=== PATIENT | female | born 1930 | race Caucasian/White ===

== ENCOUNTER 2017-08-26 20:13 | Observation (INO) | payer MEDICARE ==
[2017-08-26 20:47] LABS: #Lymphocytes 0.7 thou/uL (1.20-3.40); #Monocytes 0.7 thou/uL (0.11-0.59); #Neutrophils 6.6 thou/uL (1.40-6.50); %Basophils 0.1 % (0.0-1.0); %Eosinophils 0.3 % (0.0-10.0); %Lymphocytes 8.2 % (21.0-51.0); %Monocytes 8.2 % (0.0-10.0); Hematocrit 30.5 % (36.0-47.0); Mean Platelet Volume 6.7 fL (7.4-10.4); Red Blood Cell (RBC) Count 3.31 mill/uL (4.20-5.40)
[2017-08-26 21:04] LABS: ALT (SGPT) 25 U/L (8-55); AST (SGOT) 22 U/L (5-34); Alkaline Phosphatase 86 U/L (40-150); Anion Gap 14 mmol/L (10-20); BUN (Urea Nitrogen) 21 mg/dL (9.8-20.1); Bilirubin, Total 0.6 mg/dL (0.2-1.2); Calc. Creatinine Clearance 0 mL/min (70-130); Calcium 9.1 mg/dL (7.8-10.44); Carbon Dioxide 27 mmol/L (23-31); Chloride 103 mmol/L (98-107); Estimated GFR-MDRD 52; Globulin 3.6 g/dL (2.4-3.5); Protein, Total 7.1 g/dL (6.0-8.3)
[2017-08-26 21:08] LABS: Troponin I Less than 0.010 ng/mL (< 0.028)
[2017-08-26] MEDS ORDERED: Acetaminophen 500 MG TAB ONE (22:48)
--- NOTE | 2017-08-26 23:00 | RAD ---
FOUR VIEWS LEFT KNEE 08/26/17 HISTORY: Fall with left knee pain. AP, lateral and both oblique views left knee is obtained. Surgical hardware with plate and screws present in the proximal left tibia. No evidence of acute frac tures, subluxations, or bony lesions seen. IMPRESSION: No evidence of acute left knee pathology. POS: CASSANDRA
--- NOTE | 2017-08-26 23:24 | RAD ---
AP AND LATERAL VIEWS LEFT TIBIA AND FIBULA 08/26/17 AP and lateral views of the left tibia and fibula demonstrate surgical hardware with plates and screw s in the proximal left tibia which is old and healed. No evidence of acute left tibial or fibular fra cture seen. IMPRESSION: No evidence of acute left tibial or fibular pathology seen. POS: CASSANDRA
[2017-08-27] MEDS ORDERED: Acetaminophen 325 MG TAB PO PRN (01:16)
[2017-08-27] MEDS ORDERED: Ondansetron ODT 4 MG TAB SL PRN (01:16)
[2017-08-27] MEDS ORDERED: Ondansetron HCl/PF 4 MG/2 ML Vial IVP PRN (01:16)
[2017-08-27 02:45] VITALS: BMI 46.9
[2017-08-27] MEDS ORDERED: HYDROcodone/Acetaminophen 10/325 mg Tablet PO PRN (08:45)
[2017-08-27] MEDS ORDERED: Dextrose 50% Abboject 50 ML SYRINGE SLOW IVP PRN (08:45)
[2017-08-27] MEDS ORDERED: HYDROcodone/Acetaminophen 5/325 mg Tablet PO PRN (08:45)
[2017-08-27] MEDS ORDERED: Ondansetron ODT 4 MG TAB PO PRN (08:45)
[2017-08-27] MEDS ORDERED: Dextrose 5% in Water 1,000 ML IV PRN (08:45)
[2017-08-27] MEDS ORDERED: HumaLOG 300 UNITS/3 ML VIAL SC PRN (08:45)
[2017-08-27] MEDS ORDERED: Levothyroxine Sodium 50 MCG TAB PO SCH (09:00)
[2017-08-27 09:17] LABS: #Eosinphils 0.1 thou/uL (0.0-0.7); #Lymphocytes 0.5 thou/uL (1.20-3.40); #Monocytes 0.5 thou/uL (0.11-0.59); #Neutrophils 3.7 thou/uL (1.40-6.50); %Basophils 0.2 % (0.0-1.0); %Eosinophils 1.1 % (0.0-10.0); %Monocytes 11.1 % (0.0-10.0); Hematocrit 28.7 % (36.0-47.0); Mean Platelet Volume 6.7 fL (7.4-10.4); Red Blood Cell (RBC) Count 3.14 mill/uL (4.20-5.40); White Blood Cell (WBC) Count 4.8 thou/uL (4.8-10.8)
[2017-08-27] MEDS: Lisinopril 5 MG TAB PO SCH (09:54)
[2017-08-27] MEDS: Apixaban 5 MG TAB PO SCH ×2 (09:55→21:52)
[2017-08-27] MEDS: Famotidine 20 MG TAB PO SCH ×2 (09:56→21:51)
[2017-08-27] MEDS: Torsemide 20 MG TAB PO SCH (09:57)
--- NOTE | 2017-08-27 16:39 | HP ---
DATE OF ADMISSION: 08/27/2017 TIME OF SERVICE: 0800 hours. PRIMARY CARE PHYSICIAN: Madi James M.D. CHIEF COMPLAINT: Fall. HISTORY OF PRESENT ILLNESS: Ms. Chan is a pleasant 87-year-old [place] female who was getting out of bed yesterday morning and fell. She states that her feet just did not move like she expected them t o. She does have a problem with left leg weakness. After falling, she was unable to get up. Her is chronically was unable to help her. He did call EMS, however, she remained on the floor for about 45 minutes prior to their arrival. EMS evalua bernice her and she initially refused transport to the emergency department. Later that morning, home health care came to evaluate, the patient was unable to get up and walk due to left lower extremity pain. She was subsequently sent to the ER anyways. She has been worked up there with negative x-rays, normal labs, and we were called for admission for placement issues. Initially, did try to get her into [facility] from the ER, but due to her insuran ce carrier, they are unable to get her placed from there. She denies any chest pain or shortness of breath, no nausea or vomiting, no diarrhea or constipation, no fevers or chills. No cough or sputum production. She has no syncope or presyncope, no dizziness. PAST MEDICAL HISTORY: 1. Hyperlipidemia. 2. Diabetes mellitus, type 2, non-insulin dependent. 3. Hypertension. 4. Paroxysmal atrial fibrillation. 5. Hypothyroidism. PAST SURGICAL HISTORY: Include; 1. Hysterectomy 50-60 years ago. They were also removed her ovaries. 2. Right total knee arthroplasty in 10/[address] Arteaga, HOME MEDICATIONS: 1. Carvedilol 6.25 mg p.o. b.i.d. 2. Eliquis 2.5 mg p.o. b.i.d. 3. Levothyroxine 50 mcg daily. 4. Torsemide 20 mg daily. 5. Amiodarone listed 400 mg p.o. b.i.d. 6. Lisinopril 5 mg daily. ALLERGIES: NKDA. FAMILY HISTORY: Negative for clotting or bleeding disorder, no immune dysfunction. SOCIAL HISTORY: Negative for habits x3. She is . Her is chronically ill and unable to help her at home. REVIEW OF SYSTEMS: A 10-point review of systems was performed, negative for all other systems except as stated as per HPI. PHYSICAL EXAMINATION: VITAL SIGNS: Temperature 98.4, pulse 58, blood pressure 158/61, respiratory rate 16, satting 98% on room air. GENERAL: She is awake, alert, and oriented x3. She is an obese, older white female, appears to be i n no distress. HEENT: Normocephalic and atraumatic, pupils are equal and reactive bilaterally, mucous membranes are moist. She has no visible lesions. No thrush. NECK: Supple. There is no lymphadenopathy, JVD or thyromegaly. She has normal carotid upstrokes wi thout bruits. NECK: Has good range of motion. LUNGS: Clear to auscultation bilaterally. She has good air movement. Symmetrical chest excursion. There is no prolonged expiratory phase. There are no wheezes, rales or rhonchi. CARDIOVASCULAR: She has normal S1 and S2. I do not appreciate an S3 or S4. She does have a 2/6 sys tolic ejection murmur, best heard at the right upper sternal border. It does not radiate into the ca rotids or the apex. ABDOMEN: Obese. It is nontender and nondistended. She has normoactive bowel sounds. There is no r ebound, rigidity or guarding. I cannot palpate the liver edge or the spleen. EXTREMITIES: Show no cyanosis, no clubbing with trace pedal edema. SKIN: Warm, moist and well perfused without any other rashes or lesions. She has some skin ecchymos is from a minor skin bumps. Her left knee and left leg are swollen. There is no palpable hematoma o r ecchymosis. NEUROLOGIC: Cranial nerves II-XII are grossly intact. She has no focal neurologic deficits. Streng th is 5/5 globally except for the left leg where it is approximately 4/5. LABORATORY DATA: Basic metabolic profile is normal except for glucose of 206. She has a creatinine of 1.02 and a potassium of 4.2. CK-MB was normal at 1.9 with a troponin I was undetectable. She had a calcium of 9.1. CBC showed a white count of 8000, hemoglobin 10.3, hematocrit of 30.5 and platelet count of 228,000. Chest x-ray showed left tib/fib in the left knee. Plain films were negative for acute osseous abnorm ality. ASSESSMENT: 1. Fall from same level. 2. Minor leg trauma: No evidence of fracture. 3. Hyperlipidemia. 4. Diabetes mellitus, type 2. 5. Hypertension. 6. Paroxysmal atrial fibrillation. 7. Hypothyroidism. 8. Physical weakness. PLAN: 1. The patient will be placed in observation. She does not meet inpatient criteria. We will contin ue on her home medications, we will do q.i.d. a.c. and at bedtime Accu-Cheks with sliding scale insul in. We will watch her blood pressure. I will discuss with case management, and making a referral at this point to rehabilitation. She needs to get stronger before she goes home again. This will be a challenge given that she has [employer] Medicare Replacement, and that without inpatient criteria, she d oes not qualify for [facility]. I spoke with case management directly and they are wor manuelito on this. 2. Hypothyroidism. We will continue levothyroxine. 3. Paroxysmal atrial fibrillation, on amiodarone, which will continue on home dosing. 4. Hypertension on carvedilol, lisinopril, and torsemide. We will continue these. I discussed code status and at present she wants to be FULL CODE. We will discuss with her family an advance directive changes.
[2017-08-27] MEDS: Carvedilol 6.25 MG TAB PO SCH (16:52)
[2017-08-28] MEDS: Levothyroxine Sodium 50 MCG TAB PO SCH (06:51)
[2017-08-28] MEDS: Apixaban 5 MG TAB PO SCH ×2 (08:44→20:49)
[2017-08-28] MEDS: Famotidine 20 MG TAB PO SCH ×2 (08:45→20:50)
[2017-08-28] MEDS: Torsemide 20 MG TAB PO SCH (08:45)
[2017-08-28] MEDS: Carvedilol 6.25 MG TAB PO SCH ×2 (08:46→17:09)
--- NOTE | 2017-08-28 11:04 | PDOC.PN ---
- Subjective Encounter Start Date: 08/28/17 Encounter Start Time: 08:15 Pt stable overnight, not seen yet by PT/OT. awaiting their eval for insurance eval for IPR. Given carrier, doubt IPR will be approved, and when denied will attempt SNF approval. I think we have a more liekly rate of approval for SNF vs IPR. Pt still with pain to LLE and knee, LLE edematous below the knee NO F/C, no N/V/D/C, no CP or SOB, no GI bleeding. 10 point ROS performed and neg for all systems except as per HPI - Objective Resuscitation Status: Resuscitation Status FULL:Full Resuscitation MAR Reviewed: Yes Vital Signs & Weight: Vital Signs (12 hours) Temp Pulse Resp BP BP Pulse Ox 08/28/17 10:30 97.8 F 67 18 08/28/17 08:46 116/69 08/28/17 08:00 97.8 F 67 18 116/69 92 L 08/28/17 04:00 97.9 F 56 L 18 136/64 97 08/28/17 00:00 98.1 F 64 18 123/65 96 Weight Weight 299 lb 13.259 oz Result Diagrams: 08/27/17 09:04 08/26/17 20:37 Additional Labs: Accuchecks 08/28/17 08/27/17 08/27/17 06:23 21:12 16:48 POC Glucose 134 H 246 H 154 H 08/27/17 11:32 POC Glucose 219 H Radiology Reviewed by me: Yes EKG Reviewed by me: Yes Phys Exam - Physical Examination Constitutional: NAD HEENT: PERRLA, moist MMs, sclera anicteric, oral pharynx no lesions Neck: no nodes, no JVD, supple, full ROM Respiratory: no wheezing, no rales, no rhonchi, clear to auscultation bilateral Cardiovascular: RRR, no significant murmur, no rub Gastrointestinal: soft, non-tender, no distention, positive bowel sounds Musculoskeletal: pulses present, edema present effusion to left knee, tender to palpation all over her left knee Neurological: non-focal, normal sensation, moves all 4 limbs Lymphatic: no nodes Psychiatric: normal affect, A&O x 3 Skin: no rash, normal turgor, cap refill <2 seconds Deviation from normal: ecchymosis to lateral LLE Dx/Plan - Plan * .
[2017-08-28] MEDS: Lisinopril 5 MG TAB PO SCH (12:07)
--- NOTE | 2017-08-28 15:59 | PDOC.EVN ---
Event Note - Event Note Event Note: pt remains medically stable for discharge, but pt family unwilling to take home. Adamant about waiting on SNF/LTAC/IPR placement
[2017-08-28] MEDS: Artificial Tears 18 DROP/0.9 ML EA EYE PRN (17:57)
[2017-08-29] MEDS: Levothyroxine Sodium 50 MCG TAB PO SCH (05:54)
[2017-08-29] MEDS: Apixaban 5 MG TAB PO SCH ×2 (08:44→20:41)
[2017-08-29] MEDS: Torsemide 20 MG TAB PO SCH (08:44)
[2017-08-29] MEDS: Famotidine 20 MG TAB PO SCH ×2 (08:44→20:47)
[2017-08-29] MEDS: Artificial Tears 18 DROP/0.9 ML EA EYE PRN (08:50)
--- NOTE | 2017-08-29 11:31 | PDOC.PN ---
- Subjective Encounter Start Date: 08/29/17 Encounter Start Time: 09:25 Pt seen on rounds, no acute events, knee less sore. PT note reviewed, pt not ambulatory at home, just transfers to . required max assist yesterday. Pending insurance decision on IPR, doubt they will approve. CM working on no F/C, no CP or SOB, no N/D/V/c, no Cough or sputum. 10 point ROS performed and neg for all systems except as above - Objective Resuscitation Status: Resuscitation Status FULL:Full Resuscitation MAR Reviewed: Yes Vital Signs & Weight: Vital Signs (12 hours) Temp Pulse Resp BP Pulse Ox 08/29/17 08:45 98.1 F 54 L 18 08/29/17 08:00 98.1 F 54 L 18 107/69 95 Weight Weight 299 lb 13.259 oz I&O: 08/28/17 08/29/17 08/30/17 06:59 06:59 06:59 Intake Total 920 Balance 920 Result Diagrams: 08/27/17 09:04 08/26/17 20:37 Additional Labs: Accuchecks 08/29/17 08/28/17 08/28/17 04:14 22:21 16:24 POC Glucose 151 H 129 H 159 H 08/28/17 11:36 POC Glucose 194 H Radiology Reviewed by me: Yes EKG Reviewed by me: Yes Phys Exam - Physical Examination Constitutional: NAD HEENT: PERRLA, moist MMs, sclera anicteric, oral pharynx no lesions Neck: no nodes, no JVD, supple, full ROM Respiratory: no wheezing, no rales, no rhonchi, clear to auscultation bilateral Cardiovascular: RRR, no significant murmur, no rub Gastrointestinal: soft, non-tender, no distention, positive bowel sounds Musculoskeletal: pulses present, edema present Neurological: non-focal, normal sensation, moves all 4 limbs Lymphatic: no nodes Psychiatric: normal affect, A&O x 3 Skin: no rash, normal turgor, cap refill <2 seconds Dx/Plan (1) Fall on same level Code(s): W18.30XA - FALL ON SAME LEVEL, UNSPECIFIED, INITIAL ENCOUNTER Status : Acute Qualifiers: Encounter type: initial encounter Qualified Code(s): W18.30XA - Fall on same level, unspecified, initial encounter Comment: no significant injury. left knee hurts, but improved today (2) Physical deconditioning Code(s): R53.81 - OTHER MALAISE Status: Acute Comment: follow up PT eval today (3) Acute pain of left knee Code(s): M25.562 - PAIN IN LEFT KNEE Status: Acute (4) HTN (hypertension) Code(s): I10 - ESSENTIAL (PRIMARY) HYPERTENSION Status: Chronic Qualifiers: Hypertension type: essential hypertension Qualified Code(s): I10 - Essential (primary) hypertension (5) Paroxysmal A-fib Code(s): I48.0 - PAROXYSMAL ATRIAL FIBRILLATION Status: Chronic - Plan cont current plan of care, PT/OT, out of bed/ambulate * . home if can transfer to , awaiting decision on IPR. SNF possible. Pt medically stable for discharg,e family not wanting to take her home to wait for approval
[2017-08-29] MEDS: Carvedilol 6.25 MG TAB PO SCH ×2 (12:49→17:58)
[2017-08-29] MEDS: Lisinopril 5 MG TAB PO SCH (12:52)
[2017-08-30 05:29] LABS: Hematocrit 29.7 % (36.0-47.0)
[2017-08-30] MEDS: Levothyroxine Sodium 50 MCG TAB PO SCH (06:03)
[2017-08-30] MEDS: Carvedilol 6.25 MG TAB PO SCH ×2 (08:28→17:06)
[2017-08-30] MEDS: Famotidine 20 MG TAB PO SCH ×2 (08:30→20:33)
[2017-08-30] MEDS: Lisinopril 5 MG TAB PO SCH (08:30)
[2017-08-30] MEDS: Apixaban 5 MG TAB PO SCH ×2 (08:31→20:33)
[2017-08-30] MEDS: Torsemide 20 MG TAB PO SCH (08:33)
[2017-08-30] MEDS: Artificial Tears 18 DROP/0.9 ML EA EYE PRN (08:48)
--- NOTE | 2017-08-30 11:33 | PDOC.PN ---
- Subjective Encounter Start Date: 08/30/17 Encounter Start Time: 10:10 pt states she did well with PT yesterday, able to sit up and do exercises on the side of the bed. did not stand, did not trasnfer. knee feeling better todya No F/C, no N/V/D/C, no CP or SOB, no cough 10 point ROs performed and neg for all systems except as per HPI Still awaiting rehab options. Family to my knowledge still unwilling to take her home though medically ready/stable to - Objective Resuscitation Status: Resuscitation Status FULL:Full Resuscitation MAR Reviewed: Yes Vital Signs & Weight: Vital Signs (12 hours) Temp Pulse Resp BP BP Pulse Ox 08/30/17 08:30 52 L 123/69 08/30/17 08:28 123/69 08/30/17 08:00 97.9 F 52 L 16 97 08/30/17 07:47 97.9 F 52 L 16 123/69 97 Weight Weight 299 lb 13.259 oz I&O: 08/29/17 08/30/17 08/31/17 06:59 06:59 06:59 Intake Total 920 2395 240 Balance 920 2395 240 Result Diagrams: 08/30/17 04:31 08/30/17 04:31 Additional Labs: Accuchecks 08/30/17 08/29/17 08/29/17 04:12 16:26 11:56 POC Glucose 122 H 216 H 178 H Radiology Reviewed by me: No EKG Reviewed by me: No Phys Exam - Physical Examination Constitutional: NAD HEENT: PERRLA, moist MMs, sclera anicteric, oral pharynx no lesions Neck: no nodes, no JVD, supple, full ROM Respiratory: no wheezing, no rales, no rhonchi, clear to auscultation bilateral Cardiovascular: RRR, no significant murmur, no rub Gastrointestinal: soft, non-tender, no distention, positive bowel sounds Musculoskeletal: no edema, pulses present Neurological: non-focal, normal sensation, moves all 4 limbs Lymphatic: no nodes Psychiatric: normal affect, A&O x 3 Skin: no rash, normal turgor, cap refill <2 seconds Dx/Plan (1) Fall on same level Code(s): W18.30XA - FALL ON SAME LEVEL, UNSPECIFIED, INITIAL ENCOUNTER Status : Acute Qualifiers: Encounter type: initial encounter Qualified Code(s): W18.30XA - Fall on same level, unspecified, initial encounter Comment: no significant injury. left knee hurts, but improving daily (2) Physical deconditioning Code(s): R53.81 - OTHER MALAISE Status: Acute Comment: follow up PT eval today (3) Acute pain of left knee Code(s): M25.562 - PAIN IN LEFT KNEE Status: Acute (4) HTN (hypertension) Code(s): I10 - ESSENTIAL (PRIMARY) HYPERTENSION Status: Chronic Qualifiers: Hypertension type: essential hypertension Qualified Code(s): I10 - Essential (primary) hypertension (5) Paroxysmal A-fib Code(s): I48.0 - PAROXYSMAL ATRIAL FIBRILLATION Status: Chronic - Plan * .
[2017-08-31] MEDS: Levothyroxine Sodium 50 MCG TAB PO SCH (05:38)
[2017-08-31] MEDS: Apixaban 5 MG TAB PO SCH ×2 (07:59→20:44)
[2017-08-31] MEDS: Famotidine 20 MG TAB PO SCH ×2 (07:59→20:44)
[2017-08-31] MEDS: Torsemide 20 MG TAB PO SCH (08:00)
[2017-08-31] MEDS: Carvedilol 6.25 MG TAB PO SCH ×2 (08:00→17:50)
[2017-08-31] MEDS: Lisinopril 5 MG TAB PO SCH (08:00)
--- NOTE | 2017-08-31 12:14 | PDOC.PN ---
- Subjective Encounter Start Date: 08/31/17 Encounter Start Time: 09:50 Pt worked with PT earlier. sat up on side of bed for 10 minute.s Pt wanted to put her in a chair, but pt refused. Talked with her regarding need to ge out of bed andsit up, and now she is agreeable. Deneis refusiing. No F/C, no CP or SOb, no N/V/D/c. pt refused humalog SSI for elevated glucoses. 10 point ROS performed and neg for all systems except as per HPI - Objective Resuscitation Status: Resuscitation Status FULL:Full Resuscitation MAR Reviewed: Yes Vital Signs & Weight: Vital Signs (12 hours) Temp Pulse Resp BP BP Pulse Ox 08/31/17 08:00 98 F 53 L 16 134/72 95 08/31/17 07:40 98.0 F 53 L 16 134/72 95 08/31/17 04:00 95 Weight Weight 299 lb 13.259 oz I&O: 08/30/17 08/31/17 09/01/17 06:59 06:59 06:59 Intake Total 2395 1660 180 Balance 2395 1660 180 Result Diagrams: 08/30/17 04:31 08/30/17 04:31 Additional Labs: Accuchecks 08/31/17 08/31/17 08/30/17 11:09 06:34 20:20 POC Glucose 320 H 144 H 260 H 08/30/17 08/29/17 16:52 20:32 POC Glucose 110 166 H Phys Exam - Physical Examination Constitutional: NAD HEENT: PERRLA, moist MMs, sclera anicteric, oral pharynx no lesions Neck: no nodes, no JVD, supple, full ROM Respiratory: no wheezing, no rales, no rhonchi, clear to auscultation bilateral Cardiovascular: RRR, no significant murmur, no rub Gastrointestinal: soft, non-tender, no distention, positive bowel sounds Musculoskeletal: pulses present, edema present Neurological: non-focal, normal sensation, moves all 4 limbs Lymphatic: no nodes Psychiatric: normal affect, A&O x 3 Skin: no rash, normal turgor, cap refill <2 seconds Dx/Plan (1) Fall on same level Code(s): W18.30XA - FALL ON SAME LEVEL, UNSPECIFIED, INITIAL ENCOUNTER Status : Acute Qualifiers: Encounter type: initial encounter Qualified Code(s): W18.30XA - Fall on same level, unspecified, initial encounter Comment: no significant injury. left knee hurts, but improving daily (2) Physical deconditioning Code(s): R53.81 - OTHER MALAISE Status: Acute Comment: OOB to chair when awake (3) Acute pain of left knee Code(s): M25.562 - PAIN IN LEFT KNEE Status: Acute (4) HTN (hypertension) Code(s): I10 - ESSENTIAL (PRIMARY) HYPERTENSION Status: Chronic Qualifiers: Hypertension type: essential hypertension Qualified Code(s): I10 - Essential (primary) hypertension (5) Paroxysmal A-fib Code(s): I48.0 - PAROXYSMAL ATRIAL FIBRILLATION Status: Chronic - Plan * .
[2017-09-01 04:24] LABS: Hematocrit 28.8 % (36.0-47.0)
[2017-09-01] MEDS: Levothyroxine Sodium 50 MCG TAB PO SCH (05:12)
[2017-09-01] MEDS: Apixaban 5 MG TAB PO SCH ×2 (08:34→20:52)
[2017-09-01] MEDS: Famotidine 20 MG TAB PO SCH ×2 (08:35→20:55)
[2017-09-01] MEDS: Lisinopril 5 MG TAB PO SCH (08:35)
[2017-09-01] MEDS: Carvedilol 6.25 MG TAB PO SCH ×2 (08:36→16:49)
[2017-09-01] MEDS: Torsemide 20 MG TAB PO SCH (08:55)
--- NOTE | 2017-09-01 12:30 | PDOC.PN ---
- Subjective Encounter Start Date: 09/01/17 Encounter Start Time: 08:05 PT seen earlier on rounds, since then, we have received official insurance denial of IPR. SNF approval begun. PT seen this morning, they will get her up to a chair. No F/C, no N/V/D/C, no CP or SOB Pt does not seem very interested in doing much of anything - Objective Resuscitation Status: Resuscitation Status FULL:Full Resuscitation MAR Reviewed: Yes Vital Signs & Weight: Vital Signs (12 hours) Temp Pulse Resp BP BP Pulse Ox 09/01/17 11:44 97.9 F 54 L 16 101/63 09/01/17 08:36 120/77 09/01/17 08:35 60 09/01/17 08:00 98.0 F 60 20 120/73 94 L Weight Weight 299 lb 13.259 oz I&O: 08/31/17 09/01/17 09/02/17 06:59 06:59 06:59 Intake Total 1660 1310 Balance 1660 1310 Result Diagrams: 09/01/17 03:39 09/01/17 03:39 Additional Labs: Accuchecks 09/01/17 09/01/17 08/31/17 10:36 05:55 20:45 POC Glucose 219 H 152 H 170 H 08/31/17 15:47 POC Glucose 158 H Phys Exam - Physical Examination Constitutional: NAD HEENT: PERRLA, moist MMs, sclera anicteric, oral pharynx no lesions Neck: no nodes, no JVD, supple, full ROM Respiratory: no wheezing, no rales, no rhonchi, clear to auscultation bilateral Cardiovascular: RRR, no significant murmur, no rub Gastrointestinal: soft, non-tender, no distention, positive bowel sounds Musculoskeletal: no edema, pulses present Neurological: non-focal, normal sensation, moves all 4 limbs Lymphatic: no nodes Psychiatric: normal affect, A&O x 3 Skin: no rash, normal turgor, cap refill <2 seconds Dx/Plan (1) Fall on same level Code(s): W18.30XA - FALL ON SAME LEVEL, UNSPECIFIED, INITIAL ENCOUNTER Status : Acute Qualifiers: Encounter type: initial encounter Qualified Code(s): W18.30XA - Fall on same level, unspecified, initial encounter Comment: no significant injury. left knee hurts, but improving daily (2) Physical deconditioning Code(s): R53.81 - OTHER MALAISE Status: Acute Comment: OOB to chair when awake. Pt did not get out of bed yesterday after i saw her (3) Acute pain of left knee Code(s): M25.562 - PAIN IN LEFT KNEE Status: Acute Comment: improved. (4) HTN (hypertension) Code(s): I10 - ESSENTIAL (PRIMARY) HYPERTENSION Status: Chronic Qualifiers: Hypertension type: essential hypertension Qualified Code(s): I10 - Essential (primary) hypertension (5) Paroxysmal A-fib Code(s): I48.0 - PAROXYSMAL ATRIAL FIBRILLATION Status: Chronic - Plan cont current plan of care, PT/OT, certified social workers in health care * .
[2017-09-02] MEDS: Levothyroxine Sodium 50 MCG TAB PO SCH (05:50)
[2017-09-02 07:48] VITALS: TEMP 98.1
[2017-09-02] MEDS: Carvedilol 6.25 MG TAB PO SCH ×2 (08:09→16:32)
[2017-09-02] MEDS: Apixaban 5 MG TAB PO SCH (08:10)
[2017-09-02] MEDS: Torsemide 20 MG TAB PO SCH (08:10)
[2017-09-02] MEDS: Famotidine 20 MG TAB PO SCH (08:13)
[2017-09-02] MEDS: Lisinopril 5 MG TAB PO SCH (08:13)
--- NOTE | 2017-09-02 14:33 | PDOC.PN ---
- Subjective Encounter Start Date: 09/02/17 Encounter Start Time: 09:50 Pt seen earlier on rounds, no changes. no F/C, no n/V/d/C. Was up for 2 to 2.5 hours in the chair yesterday. feels better. Awaiting word from [facility] about approval or not. If approved, can go today, if not, then family either needs to make financial arrangements for care or take her home 10 point ROS performed and neg for all systems except as above - Objective Resuscitation Status: Resuscitation Status FULL:Full Resuscitation MAR Reviewed: Yes Vital Signs & Weight: Vital Signs (12 hours) Temp Pulse Resp BP BP Pulse Ox 09/02/17 08:13 60 09/02/17 08:09 130/75 09/02/17 08:00 98.1 F 60 20 94 L 09/02/17 07:47 98.1 F 60 18 130/75 94 L Weight Weight 299 lb 13.259 oz I&O: 09/01/17 09/02/17 09/03/17 06:59 06:59 06:59 Intake Total 1310 1200 Balance 1310 1200 Result Diagrams: 09/01/17 03:39 09/01/17 03:39 Additional Labs: Accuchecks 09/02/17 09/02/17 09/01/17 11:32 04:53 20:05 POC Glucose 208 H 129 H 211 H 09/01/17 15:51 POC Glucose 207 H Phys Exam - Physical Examination Constitutional: NAD HEENT: PERRLA, sclera anicteric, oral pharynx no lesions Neck: no nodes, no JVD, supple Respiratory: no wheezing, no rales, no rhonchi, clear to auscultation bilateral Cardiovascular: RRR, no significant murmur Gastrointestinal: soft, non-tender, no distention, positive bowel sounds Musculoskeletal: no edema, pulses present Neurological: non-focal, normal sensation, moves all 4 limbs Lymphatic: no nodes Psychiatric: normal affect, A&O x 3 Skin: no rash, normal turgor, cap refill <2 seconds Dx/Plan (1) Fall on same level Code(s): W18.30XA - FALL ON SAME LEVEL, UNSPECIFIED, INITIAL ENCOUNTER Status : Acute Qualifiers: Encounter type: initial encounter Qualified Code(s): W18.30XA - Fall on same level, unspecified, initial encounter Comment: no significant injury. left knee hurts, but improving daily (2) Physical deconditioning Code(s): R53.81 - OTHER MALAISE Status: Acute Comment: OOB to chair when awake. Pt did not get out of bed yesterday after i saw her (3) Acute pain of left knee Code(s): M25.562 - PAIN IN LEFT KNEE Status: Acute Comment: improved. (4) HTN (hypertension) Code(s): I10 - ESSENTIAL (PRIMARY) HYPERTENSION Status: Chronic Qualifiers: Hypertension type: essential hypertension Qualified Code(s): I10 - Essential (primary) hypertension (5) Paroxysmal A-fib Code(s): I48.0 - PAROXYSMAL ATRIAL FIBRILLATION Status: Chronic - Plan * . follow up with case management
--- NOTE | 2017-09-02 16:21 | DIS ---
DATE OF ADMISSION: 08/27/2017 DATE OF DISCHARGE: 09/02/2017 DISCHARGE DIAGNOSES: 1. Physical deconditioning. 2. Hypertension. 3. Diabetes. 4. Fall. 5. Acute on chronic knee pain. CONSULTATIONS: None. PROCEDURES: None. HISTORY AND PHYSICAL: Ms. Chan is an 87-year-old female who is nonambulatory, gets around the house via wheelchair, was able to transfer from bed to wheelchair who was transferring and fell onto the f sonja of her wheelchair. Per her , she was able to get up, so called the EMS. She was brought to the Emergency Departm ent for evaluation and admitted for workup. In the ER, a tib/fib films and knee films were negative for acute injury and they attempted to place her into rehabilitation, but were unable due to insurance limitations and was admitted to our service . HOSPITAL COURSE: The patient was seen and examined and placed in observation. She made no criteria to be in the hospital. Due to her insurance carrier, it would be at least 3 days before we get appro rudolph. She was watched in the hospital from 08/27 until 09/01 and we finally got insurance denial for acute inpatient rehabilitation. She subsequently picked [facility] and we got approval today, she was stable for discharge. PHYSICAL EXAMINATION: The patient was seen and examined on the day of discharge. Discharge plan and disposition were discussed with the patient [id number] at the bedside. DISCHARGE MEDICATIONS: 1. Amiodarone 400 mg p.o. b.i.d. 2. Eliquis 2.5 mg p.o. b.i.d. 3. Carvedilol 6.25 mg p.o. b.i.d. 4. Levothyroxine 50 mcg p.o. daily. 5. Lisinopril 5 mg daily. 6. Torsemide 20 mg daily. FOLLOWUP APPOINTMENTS: Primary care physician who is Dr. Mack Davila within a week. DISCHARGE DIET: Diabetic, heart healthy recommended. ACTIVITY: As tolerated. PT, OT consult have been ordered. DISCHARGE CONDITION: Good. DISPOSITION: Being discharged to [facility] via nonemergent transport.
[2017-09-02 16:32] VITALS: BP 135/64
== END 2017-09-02 18:14 ==
LOC: ERS 20:13 → T4-B 23:40
PROVIDERS: ADMIT Internal Medicine; ATTEND Internal Medicine
DX: R53.81 Other malaise (principal); M25.562 Pain in left knee; I11.0 Hypertensive heart disease with heart failure; I50.9 Heart failure, unspecified; E11.9 Type 2 diabetes mellitus without complications; E03.9 Hypothyroidism, unspecified; I48.0 Paroxysmal atrial fibrillation; Z79.01 Long term (current) use of anticoagulants; Z79.899 Other long term (current) drug therapy; Z96.651 Presence of right artificial knee joint; Z90.710 Acquired absence of both cervix and uterus; Z90.722 Acquired absence of ovaries, bilateral; Z98.890 Other specified postprocedural states; Z99.3 Dependence on wheelchair; W18.30XA Fall on same level, unspecified, initial encounter
CPT/HCPCS: 73564; 73590; 80053; 82553; 82565 ×2; 82962 ×7; 84484; 85014 ×2; 85018 ×2; 85025 ×2; 85049 ×2; 93005; 97110 ×3; 97139 ×5; 97530 ×5; 99285; G0378 ×2; G8978; G8979; G8987; G8988; 36415; 36416

== ENCOUNTER 2018-01-09 16:41 | Inpatient (IN) | payer MEDICARE ==
[2018-01-09 19:00] LABS: Mean Corpuscular HGB CONC 31.5 g/dL (32.0-36.0); Mean Corpuscular Hemoglobin 24.1 pg (27.0-31.0); Mean Corpuscular Volume 76.5 fl (81.0-99.0); Mean Platelet Volume 6.8 fL (7.4-10.4); Platelet Count 275 thou/uL (130-400); Red Blood Cell (RBC) Count 3.34 mill/uL (4.20-5.40); White Blood Cell (WBC) Count 20.2 thou/uL (4.8-10.8)
[2018-01-09 19:23] LABS: Troponin I 0.182 ng/mL (< 0.028)
[2018-01-09 19:34] LABS: Band 10 % (5-11); Hypochromia SLIGHT = 6-15 cells (100X) (0-5/hpf); Lymphocytes 1 % (21-51); MDiff Complete? YES; Microcytosis SLIGHT = 6-15 cells (100X) (0-5/hpf); Monocytes 2 % (0-10); Neutrophil 87 % (42-75); PLT Morphology Comment Appears Adequate
[2018-01-09] MEDS ORDERED: Enoxaparin Sodium 80 MG/0.8 ML SYRINGE ONE (20:37)
[2018-01-09] MEDS ORDERED: Pantoprazole 80 MG, Admixture Fee 1 EACH in Sodium Chloride 0.9% 100 ML IVP SCH (21:00)
[2018-01-09] MEDS ORDERED: Pantoprazole 40 MG VIAL ONE (21:02)
[2018-01-09] MEDS ORDERED: Ondansetron HCl/PF 4 MG/2 ML Vial IVP PRN (21:56)
[2018-01-09] MEDS ORDERED: Ondansetron ODT 4 MG TAB SL PRN (21:56)
[2018-01-09] MEDS ORDERED: Acetaminophen 325 MG TAB PO PRN (21:56)
[2018-01-09 22:35] LABS: Troponin I 0.181 ng/mL (< 0.028)
[2018-01-10 01:05] LABS: Troponin I 0.207 ng/mL (< 0.028)
[2018-01-10] MEDS ORDERED: HumaLOG 300 UNITS/3 ML VIAL SC PRN (02:54)
[2018-01-10] MEDS ORDERED: Dextrose 5% in Water 1,000 ML IV PRN (02:54)
[2018-01-10] MEDS ORDERED: Dextrose 50% Abboject 50 ML SYRINGE SLOW IVP PRN (02:54)
[2018-01-10] MEDS ORDERED: Dextrose 5 % And 0.9 % NaCl 1,000 ML IV SCH (03:00)
[2018-01-10 09:08] LABS: ALT (SGPT) 38 U/L (8-55); AST (SGOT) 37 U/L (5-34); Alkaline Phosphatase 89 U/L (40-150); Anion Gap 14 mmol/L (10-20); BUN (Urea Nitrogen) 24 mg/dL (9.8-20.1); Bilirubin, Total 0.8 mg/dL (0.2-1.2); Calc. Creatinine Clearance 64 mL/min (70-130); Calcium 8.5 mg/dL (7.8-10.44); Carbon Dioxide 26 mmol/L (23-31); Chloride 103 mmol/L (98-107); Estimated GFR-MDRD 58; Globulin 3.4 g/dL (2.4-3.5); Glucose 178 mg/dL (83-110); Protein, Total 6.4 g/dL (6.0-8.3); Sodium 139 mmol/L (136-145)
[2018-01-10 10:27] LABS: Reticulocyte Count 2.6 % (0.5-1.5)
[2018-01-10] MEDS ORDERED: cefTRIAXone\\ROCEPHIN 1 GM in Sodium Chloride 0.9% 100 ML IVPB SCH (10:45)
[2018-01-10 10:49] LABS: Iron Binding Capacity, Total 318 mcg/dL (265-497)
[2018-01-10 10:50] LABS: Iron 9 ug/dL (50-170)
[2018-01-10] MEDS ORDERED: Vancomycin HCl 1.5 GM in Sodium Chloride 0.9% 250 ML 300 ML IVPB SCH (12:00)
[2018-01-10] MEDS: Sodium Chloride 0.9% 1,000 ML IV SCH (13:19)
[2018-01-10] MEDS: cefTRIAXone\\ROCEPHIN 1 GM, Syringe 0.4 ML in Sterile Water 9.6 ML SLOW IVP SCH (13:58)
--- NOTE | 2018-01-10 15:21 | CON ---
DATE OF CONSULTATION: 01/10/2018 REASON FOR CONSULTATION: Hematochezia. CONSULTING PHYSICIAN: David Peña D.O. HISTORY OF PRESENT ILLNESS: Patient is an 88-year-old female with past medical history of diabetes, hypothyroidism, hyperlipidemia, hypertension, atrial fibrillation, congestive heart failure, and phys ical deconditioning presenting with complaints of weakness, fever, and hematochezia. The patient is somewhat unreliable historian with the timeline of events somewhat confusing during the course of the conversation; however, she states that for greater than 1 month, she has been having approximately 3 -4 liquid bowel movements per day that she states correlates with the initiation of metformin for her diabetes management. However, over the last week, she had been having increasing difficulty with no rmal activities and there was also some report of fever or hematochezia per chart review. Now upon q uestioning the patient, she denied any fever over the last week, but stated that she had bright red b lood per rectum that was present only in her diaper not mixed in with the stool. She denies any pain with defecation, although she did endorse some abdominal discomfort located in the periumbilical reg ion, but no pain per se. She also endorsed mild nausea without emesis, but these all seem to be geoff elating with the administration of metformin per patient. Currently, she denies any nausea, vomiting , fevers, chills, shortness of breath, chest pain, abdominal pain, hematemesis or melena. REVIEW OF SYSTEMS: A 10 category review of systems was obtained with all responses negative except f or the pertinent positives as listed in the HPI. PAST MEDICAL HISTORY: As per HPI. PAST SURGICAL HISTORY: Hysterectomy and right knee surgery. FAMILY HISTORY: Denies any GI malignancy. SOCIAL HISTORY: Denies any tobacco, alcohol or illicit drug use. OUTPATIENT MEDICATIONS: Reviewed. ALLERGIES: No known drug allergies. PHYSICAL EXAMINATION: VITAL SIGNS: Temperature 99.2 with T-max of 101.7 on 01/09/2018 at 2304 hours, current pulse 67, blo od pressure 132/74, respiratory rate 20, and satting 92% on room air. GENERAL: The patient is lying in bed in no acute distress. Alert and oriented x4. NECK: Supple. No JVD noted. CARDIOVASCULAR: Regular rate and rhythm with no discernible murmurs, gallops or rubs. RESPIRATORY: Clear to auscultation bilaterally. ABDOMEN: Normoactive bowel sounds, soft, nontender, and nondistended. EXTREMITIES: No cyanosis, clubbing or edema. LABORATORY DATA: CBC with white blood cell count of 20.2, hemoglobin 8, hematocrit 25.5, and platele ts 275. Chemistry with sodium of 139, potassium 4, chloride 103, CO2 26, BUN 24, creatinine 0.92, gl ucose 178, AST 37, ALT 38, alkaline phosphatase 89, and total bilirubin 0.8. IMAGING DATA: No current GI imaging is available for review. ASSESSMENT AND PLAN: The patient is an 88-year-old female with past medical history of diabetes, hyp othyroidism, hyperlipidemia, hypertension, atrial fibrillation, congestive heart failure, and physica l deconditioning presenting with fever, weakness, hematochezia, darker colored stools and anemia. Anemia/hematochezia. The patient is presenting with a history of 1 month of 3-4 liquid bowel movemen ts per day that she states coincided with the initiation of metformin therapy. However, over the las t week, there is mention in the chart of documented fever in addition to increased diarrhea-like katheryn l movements as well as hematochezia present as blood within the diaper itself. Upon questioning the patient further, she has also been having darker colored stools with the initiation of iron as an out patient, presumably due to chronic anemia. When comparison of her hemoglobin and hematocrit during t his admission with prior admissions, she does have a decrease in her hemoglobin and hematocrit of amber roximately 1 unit of blood with the current history not consistent with that amount of blood loss. H owever, with the diarrhea, fever and hematochezia, there is a strong concern for an infectious etiolo gy, especially in an elderly patient in an assisted living care facility. When broached with the sub ject of possible colonoscopy or endoscopic evaluation, she was reluctant to proceed with invasive pro cedures at this time. RECOMMENDATIONS: 1. Would continue to trend hemoglobin and hematocrit and transfuse as necessary to maintain hemoglob in and hematocrit of 7/21. 2. Would further characterize this anemia prior to any blood transfusion with iron panel, reticulocy te. 3. Would continue to monitor for any signs of active gastrointestinal bleeding. 4. I will order infectious stool studies including Clostridium difficile as a possible origin for juan alberto of her anemia, abdominal pain and hematochezia. 5. Would hold on metformin administration at least for the time being. We will continue to follow. Please call with any questions.
[2018-01-10] MEDS: Carvedilol 6.25 MG TAB PO SCH (16:18)
[2018-01-10 16:46] LABS: Troponin I 0.351 ng/mL (< 0.028)
--- NOTE | 2018-01-10 16:52 | PDOC.PN ---
- Subjective Encounter Start Date: 01/10/18 Encounter Start Time: 16:50 Subjective: nsg notes rev, queenie ovn, pt herself has no c/o, feels about the same as -: yesterday, denies any dysuria, any pain anywhere, has not had a BM - Objective Vital Signs & Weight: Vital Signs (12 hours) Temp Pulse Resp BP BP Pulse Ox 01/10/18 16:18 131/60 01/10/18 16:17 101.6 F H 65 20 131/60 92 L 01/10/18 12:04 100.1 F H 60 20 163/60 H 95 01/10/18 08:20 99.2 F 67 20 132/74 94 L Weight Admit Weight 203 lb Weight 203 lb 8 oz I&O: 01/09/18 01/10/18 01/11/18 06:59 06:59 06:59 Intake Total 300 720 Output Total 0 Balance 300 720 Result Diagrams: 01/09/18 18:47 01/10/18 08:23 Additional Labs: Accuchecks 01/10/18 01/10/18 10:38 06:06 POC Glucose 206 H 201 H Phys Exam - Physical Examination Constitutional: NAD lying in the hospital bed HEENT: PERRLA, moist MMs, oral pharynx no lesions Respiratory: no wheezing, no rales, no rhonchi, clear to auscultation bilateral limited anterior exam Cardiovascular: RRR, no significant murmur, no rub Gastrointestinal: soft, positive bowel sounds large Musculoskeletal: no edema Deviation from normal: depressed affect Dx/Plan - Plan * UTI * continue with empiric ceftriaxone * pending urine cultures, preliminary + for gram neg rods bacteremia * gram positive cocci 2/2 * repeat blood cx * different from urine * add empiric vancomycin leukocytosis * continue to monitor, no further fevers * continue IVF question of hematochezia * serial CBC * no further BM during this hospitalization * if further elevation of troponins indicative of potential NSTEMI then w/o overt bleed will consider starting heparin question of hematuria * no katy blood in urine? * hemodynamically stable elev troponin, NSTEMI * serial troponin * repeat EKG * ECHO in AM * JEFFREY, ASA, BB, statin * heparin * apprec cardiology c/s diet: cardiac activity: as leonardo dvt ppx: full a/c with heparin Review of Systems - Medications/Allergies Allergies/Adverse Reactions: Allergies Allergy/AdvReac Type Severity Reaction Status Date / Time No Known Drug Allergies Allergy Verified 01/09/18 22:56 Medications: Current Medications Amiodarone HCl (Cordarone) 400 mg PO DAILY [facility] Aspirin (Ecotrin) 81 mg PO DAILY [facility] Carvedilol (Coreg) 6.25 mg PO BID-WM [facility] Last Admin: 01/10/18 16:18 Dose: 6.25 mg Dextrose/Water (Dextrose 50%) 25 gm SLOW IVP PRN PRN PRN Reason: Hypoglycemia Glucagon (Glucagon) 1 mg IM PRN PRN PRN Reason: Hypoglycemia Dextrose/Water (D5w) 1,000 mls @ 0 mls/hr IV .Q0M PRN; As Directed PRN Reason: Hypoglycemia Ceftriaxone Sodium 1 gm/ (Syringe 0.4 ml/ Sterile Water) 10 mls @ 120 mls/hr SLOW IVP Q24HR [facility] Last Admin: 01/10/18 13:58 Dose: 10 mls Vancomycin HCl 1.5 gm/ Sodium (Chloride) 300 mls @ 200 mls/hr IVPB Q24HR@1200 [facility] Last Admin: 01/10/18 11:50 Dose: 300 mls Sodium Chloride (Normal Saline 0.9%) 1,000 mls @ 100 mls/hr IV .Q10H [facility] Last Admin: 01/10/18 13:19 Dose: 1,000 mls Insulin Human Lispro (Humalog) 0 units SC .MILD SLIDING SCALE PRN PRN Reason: Mild Correctional Scale Levothyroxine Sodium (Synthroid) 50 mcg PO 0600 [facility] Miscellaneous Medication (Pharmacy To Dose) 1 each IVPB PRN PRN PRN Reason: Pharmacy to dose
[2018-01-10] MEDS ORDERED: Nitroglycerin 0.4 MG TAB (25 Tab Bottle) SL PRN (16:54)
[2018-01-10] MEDS ORDERED: Heparin 25,000 units/D5W 500 ML IVPB SCH (17:00)
[2018-01-10] MEDS ORDERED: Heparin 10,000 UNITS/ 10 ML VIAL SLOW IVP SCH (17:00)
[2018-01-10] MEDS: Acetaminophen 325 MG TAB PO PRN (17:50)
[2018-01-10 17:58] LABS: Anion Gap 11 mmol/L (10-20); BUN (Urea Nitrogen) 20 mg/dL (9.8-20.1); Calc. Creatinine Clearance 80 mL/min (70-130); Calcium 8.2 mg/dL (7.8-10.44); Carbon Dioxide 26 mmol/L (23-31); Chloride 103 mmol/L (98-107); Estimated GFR-MDRD 74; Glucose 163 mg/dL (83-110); Potassium 3.8 mmol/L (3.5-5.1); Sodium 136 mmol/L (136-145)
[2018-01-10 18:01] LABS: Anisocytosis SLIGHT = 6-15 cells (100X) (0-5/hpf); Band 2 % (5-11); Eosinophils 1 % (0-10); Hemoglobin 6.7 g/dL (12.0-16.0); Hypochromia SLIGHT = 6-15 cells (100X) (0-5/hpf); Lymphocytes 4 % (21-51); MDiff Complete? YES; Mean Corpuscular Hemoglobin 24.8 pg (27.0-31.0); Mean Corpuscular Volume 77.4 fl (81.0-99.0); Mean Platelet Volume 7.2 fL (7.4-10.4); Microcytosis SLIGHT = 6-15 cells (100X) (0-5/hpf); Monocytes 3 % (0-10); Neutrophil 90 % (42-75); PLT Morphology Comment Appears Adequate; Platelet Count 205 thou/uL (130-400); RBC Distribution Width 14.7 % (11.5-14.5); Red Blood Cell (RBC) Count 2.72 mill/uL (4.20-5.40); White Blood Cell (WBC) Count 11.1 thou/uL (4.8-10.8)
[2018-01-10 18:12] LABS: Troponin I 0.353 ng/mL (< 0.028)
--- NOTE | 2018-01-10 19:06 | PDOC.EVN ---
Event Note - Event Note Event Note: Pt with no BM, visually clear urine, increasing troponin, started on heparin gtt stopped after decrease in H/H with stable VSS, 2u pRBC ordered for goal hgb 8 NS 500cc IVF bolus along with continued IVF no overt site of bleed. start protonix gtt
[2018-01-10] MEDS ORDERED: Sodium Chloride 0.9% 500 ML IV SCH (19:15)
[2018-01-10 20:30] LABS: Troponin I 0.547 ng/mL (< 0.028)
[2018-01-11 01:48] LABS: #Lymphocytes 0.6 thou/uL (1.20-3.40); #Monocytes 0.9 thou/uL (0.11-0.59); #Neutrophils 9.4 thou/uL (1.40-6.50); %Basophils 0.2 % (0.0-1.0); %Eosinophils 0.2 % (0.0-10.0); %Lymphocytes 5.2 % (21.0-51.0); %Monocytes 7.8 % (0.0-10.0); %Neutrophils 86.6 % (42.0-75.0); Hemoglobin 7.8 g/dL (12.0-16.0); Mean Corpuscular HGB CONC 32.3 g/dL (32.0-36.0); Mean Corpuscular Hemoglobin 25.5 pg (27.0-31.0); Mean Corpuscular Volume 78.9 fl (81.0-99.0); Platelet Count 203 thou/uL (130-400); Red Blood Cell (RBC) Count 3.04 mill/uL (4.20-5.40); White Blood Cell (WBC) Count 10.9 thou/uL (4.8-10.8)
[2018-01-11] MEDS: Levothyroxine Sodium 50 MCG TAB PO SCH (06:13)
[2018-01-11] MEDS ORDERED: Aspirin 81 mg Enteric Coated Tablet PO SCH (09:00)
[2018-01-11] MEDS ORDERED: Amiodarone 200 MG TAB PO SCH (09:00)
[2018-01-11] MEDS: Aspirin 325 MG TAB PO SCH (09:43)
[2018-01-11] MEDS: Carvedilol 6.25 MG TAB PO SCH ×2 (09:43→17:08)
[2018-01-11] MEDS: Sodium Chloride 0.9% 1,000 ML IV SCH ×2 (09:45→17:10)
[2018-01-11] MEDS: cefTRIAXone\\ROCEPHIN 1 GM, Syringe 0.4 ML in Sterile Water 9.6 ML SLOW IVP SCH (12:37)
[2018-01-11] MEDS: Vancomycin HCl 1.5 GM in Sodium Chloride 0.9% 250 ML 300 ML IVPB SCH (12:52)
--- NOTE | 2018-01-11 13:18 | PDOC.PN ---
- Subjective Encounter Start Date: 01/11/18 Encounter Start Time: 13:18 CC: Anemia Sub: pt didnt have bowel movement - Objective Vital Signs & Weight: Vital Signs (12 hours) Temp Pulse Pulse Resp BP BP BP 01/11/18 12:00 97.0 F L 55 L 17 148/68 H 01/11/18 09:43 145/71 H 01/11/18 08:00 98.5 F 56 L 18 145/71 H 01/11/18 06:11 98.5 F 57 L 16 175/72 H 01/11/18 03:10 97.7 F 53 L 18 131/58 L 01/11/18 02:54 98.4 F 55 L 18 146/84 H 01/11/18 02:00 98.5 F 56 L 20 142/63 H Pulse Ox 01/11/18 12:00 95 01/11/18 09:43 01/11/18 08:00 96 01/11/18 06:11 96 01/11/18 03:10 95 01/11/18 02:54 01/11/18 02:00 94 L Weight Admit Weight 203 lb Weight 203 lb 8 oz I&O: 01/10/18 01/11/18 01/12/18 06:59 06:59 06:59 Intake Total 300 4875 Output Total 0 Balance 300 4875 Result Diagrams: 01/11/18 01:37 01/10/18 17:14 Additional Labs: Accuchecks 01/11/18 01/11/18 01/10/18 11:03 05:58 21:27 POC Glucose 165 H 160 H 202 H 01/10/18 16:29 POC Glucose 198 H Dx/Plan - Plan Physical Examination Constitutional: NAD lying in the hospital bed HEENT: PERRLA, moist MMs, oral pharynx no lesions Respiratory: no wheezing, no rales, no rhonchi, clear to auscultation bilateral limited anterior exam Cardiovascular: RRR, no significant murmur, no rub Gastrointestinal: soft, positive bowel sounds, distended, no guarding Musculoskeletal: no edema Deviation from normal: depressed affect Dx/Plan - Plan * UTI * continue with empiric ceftriaxone * pending urine cultures, preliminary + for gram neg rods bacteremia * gram positive cocci 2/2 * repeat blood cx * different from urine * continue vancomycin leukocytosis * continue to monitor, no further fevers * continue IVF question of hematochezia + Acute anemia * serial CBC * no further BM during this hospitalization. will start miralax 17gms po bid * Plan to check ct abdomen and pelvis with out contrast to r/o bleed * s/p blood transfusion question of hematuria * no katy blood in urine? * hemodynamically stable elev troponin, NSTEMI * cardio on board * ECHO in AM * JEFFREY, ASA, BB, statin * heparin * diet: cardiac activity: as leonardo dvt ppx: scd d/w pt & RN
--- NOTE | 2018-01-11 16:37 | CT ---
CT OF THE ABDOMEN AND PELVIS WITHOUT CONTRAST: Date: 01-11-18 Provided Clinical History: Anemia. FINDINGS: There are moderate bilateral pleural effusions with adjacent subsegmental atelectatic change. The solid abdominal organs are suboptimally evaluated without IV contrast but demonstrate no acute pr ocess. Bilateral small nonobstructing renal calculi. Hypodensity, incompletely characterized without IV contrast involving the right hepatic lobe anteriorly near the dome. Vicarious excretion of contrast material is seen within the gallbladder. There is a small amount of simple appearing free fluid present adjacent to the right hepatic margin. There is no bowel dilatation, free air, or significant free fluid present. There is a small calculus present at the right renal pelvis without obstructive change measuring 3-4 mm. Vascular calcifications are noted involving the abdominal aorta and its branches. The osseous structures demonstrate no concerning osteoblastic or osteoarthritic changes. Degenerative and osteopenia changes are seen. IMPRESSION: 1. Etiology for anemia is not evident on this study. Chronic findings as above. POS: CASSANDRA
[2018-01-11 17:10] LABS: #Lymphocytes 0.5 thou/uL (1.20-3.40); #Monocytes 0.7 thou/uL (0.11-0.59); #Neutrophils 8.2 thou/uL (1.40-6.50); %Eosinophils 0.3 % (0.0-10.0); %Lymphocytes 4.9 % (21.0-51.0); %Monocytes 7.3 % (0.0-10.0); %Neutrophils 87.4 % (42.0-75.0); Hemoglobin 8.7 g/dL (12.0-16.0); Mean Corpuscular HGB CONC 32.4 g/dL (32.0-36.0); Mean Corpuscular Hemoglobin 25.8 pg (27.0-31.0); Mean Corpuscular Volume 79.6 fl (81.0-99.0); Mean Platelet Volume 7.1 fL (7.4-10.4); Platelet Count 190 thou/uL (130-400); RBC Distribution Width 15.8 % (11.5-14.5); Red Blood Cell (RBC) Count 3.39 mill/uL (4.20-5.40); White Blood Cell (WBC) Count 9.4 thou/uL (4.8-10.8)
[2018-01-11 17:28] LABS: Anion Gap 12 mmol/L (10-20); BUN (Urea Nitrogen) 15 mg/dL (9.8-20.1); Calc. Creatinine Clearance 92 mL/min (70-130); Carbon Dioxide 21 mmol/L (23-31); Chloride 107 mmol/L (98-107); Estimated GFR-MDRD 88; Glucose 163 mg/dL (83-110); Potassium 3.8 mmol/L (3.5-5.1); Sodium 136 mmol/L (136-145)
[2018-01-11 17:38] LABS: Troponin I 0.645 ng/mL (< 0.028)
--- NOTE | 2018-01-11 22:13 | CON ---
DATE OF CONSULTATION: 01/11/2018 HISTORY: Delia Chan is an 88-year-old white female that our services seen several times in the hospital. In February 2015, she was admitted with atrial fibrillation with fast ventricular response and was short of breath. She was placed on IV Cardizem. Echocardiogram revealed ejection fraction of 50% to 55% . She was switched to p.o. diltiazem 180 mg b.i.d. and Eliquis. It was felt best to anticoagulate and rate control. She was seen by Dr. Ronan Hayward several times in the office for atrial fibrillation. In approximately 06/2016, the Eliquis was switched to Coumadin. She thought that this caused her stomach problems, so she decided to stop taking Coumadin and Cardizem. She then was not on any medications for 5 months until she was admitted in 11/2016. She has essentially been bedridden after knee replacement and developed foot drop afterwards. She then came to the emergency room in 11/2016 complaining of shortness of breath, increased weakness with right leg cellulitis. She would have heart rates up to 160 per minute. She denied any chest discomfort and only complained of shortness of breath. She was started on IV Cardizem. She was loaded with IV amiodarone and placed on oral amiodarone. Ejection fraction was 40% to 45%. She also started on carvedilol and continued on her lisinopril. She also was placed on Eliquis 5 mg b.i.d. She did not come to the office for followup after that hospitalization. She again was admitted in 08/2017. She had fallen while trying to transfer from her wheelchair to the bed. She then went to [facility]. She then began to have fever for 2 days as well as generalized weakness. Temperature was up to 102.4. She was given ceftriaxone and aspirin and transferred here. She denies any shortness of breath or chest discomfort. She has had mildly elevated troponin I. It appears that she continues in sinus rhythm at this time on the monitor. PAST MEDICAL HISTORY: Paroxysmal atrial fibrillation, diabetes, hypertension, hyperlipidemia, chronic lower extremity edema. MEDICATIONS: Amiodarone 400 mg daily, Eliquis 2.5 b.i.d., Ecotrin 81 daily, carvedilol 6.25 b.i.d., insulin-Humulin R, levothyroxine 50 mcg daily, lisinopril 5 mg daily, torsemide 20 mg daily, CoQ10 of 100 daily. ALLERGIES: None. OPERATIONS: Right total knee replacement and hysterectomy. SOCIAL HISTORY: She does not smoke or drink. REVIEW OF SYSTEMS: Twelve point review of systems is otherwise unremarkable. PHYSICAL EXAMINATION: VITAL SIGNS: Blood pressure 150/68 and pulse of 55, sinus rhythm on the monitor. HEENT: PERRL. NECK: Supple. CHEST: Clear. CARDIAC: S1, S2 normal, without any S3 or S4. There is a 1/6 holosystolic murmur along the left sternal border. ABDOMEN: Normal bowel sounds. Abdomen is obese. No tenderness. EXTREMITIES: Revealed 1+ bilateral edema. NEUROLOGIC: Grossly intact. SKIN: Warm and dry. LABORATORY DATA: EKG revealed normal sinus rhythm with nonspecific ST and T- wave changes. A 2/2 blood cultures have grown gram positive cocci. Urine has grown Proteus species and Escherichia coli. White count has gone up to 20,200, but now is back to 9400; hemoglobin 8.7; hematocrit 27.0; platelets 190,000. Sodium 136, potassium 3.8, chloride 107, carbon dioxide 21, BUN 15, creatinine 0.64. Troponin I is 0.645. CK-MB is totally normal. IMPRESSION: 1. Sepsis with 2/2 blood cultures positive along with elevated temperature. 2. Paroxysmal atrial fibrillation; however, she continues to be in sinus rhythm on the amiodarone. 3. Diabetes mellitus. 4. Hypertension. 5. Hyperlipidemia. 6. Last ejection fraction of 40% to 45%. PLAN: Echocardiogram will be performed to reassess left ventricular function. With this nonambulatory institutionalized 88-year-old, I do not feel that invasive cardiac evaluation is appropriate. Also, she has been totally asymptomatic and the elevated troponin I certainly could be due to demand ischemia. TSH will be obtained and the amiodarone may be reduced to 200 mg daily. MTDD
[2018-01-11 23:09] LABS: #Basophils 0.1 thou/uL (0.0-0.2); #Lymphocytes 0.5 thou/uL (1.20-3.40); #Monocytes 0.8 thou/uL (0.11-0.59); #Neutrophils 7.5 thou/uL (1.40-6.50); %Basophils 0.6 % (0.0-1.0); %Eosinophils 0.4 % (0.0-10.0); %Lymphocytes 5.2 % (21.0-51.0); %Monocytes 9.2 % (0.0-10.0); %Neutrophils 84.5 % (42.0-75.0); Hemoglobin 9.1 g/dL (12.0-16.0); Mean Corpuscular HGB CONC 32.3 g/dL (32.0-36.0); Mean Corpuscular Hemoglobin 25.6 pg (27.0-31.0); Mean Corpuscular Volume 79.3 fl (81.0-99.0); Mean Platelet Volume 7.3 fL (7.4-10.4); Platelet Count 182 thou/uL (130-400); RBC Distribution Width 16.1 % (11.5-14.5); Red Blood Cell (RBC) Count 3.55 mill/uL (4.20-5.40); White Blood Cell (WBC) Count 8.9 thou/uL (4.8-10.8)
--- NOTE | 2018-01-11 23:16 | PRG ---
DATE OF SERVICE: 01/11/2018 REASON FOR CONSULTATION: Hematochezia SUBJECTIVE: Patient did well overnight with no acute events or problems. She was noted to have a de crease in her H&H this morning by hospitalist staff and with plans to transfuse approximately 2 units of PRBCs today. However, she has not had a bowel movement during this admission nor have any eviden ce of GI bleeding. Currently, denies any nausea, vomiting, fevers, chills, or GI bleeding. OBJECTIVE: VITAL SIGNS: Temperature 97.6, pulse 53, blood pressure 147/67, respiratory rate 18, satting 96% on room air. GENERAL: Patient is lying in bed in no acute distress. Alert and oriented x4. CARDIOVASCULAR: Regular rate and rhythm. RESPIRATORY: Clear to auscultation bilaterally. ABDOMEN: Normoactive bowel sounds, soft, nontender, nondistended. EXTREMITIES: No cyanosis, clubbing, or edema. LABORATORY DATA: CBC with a white blood cell count of 10.9, hemoglobin 7.8, hematocrit 24, platelets 203. Chemistry with a glucose of 160. IMAGING DATA: No current GI imaging is available for review. ASSESSMENT AND PLAN: Patient is an 88-year-old female with past medical history of diabetes, hypothy roidism, hyperlipidemia, hypertension, atrial fibrillation, congestive heart failure, and physical de conditioning presenting with fever, weakness, anemia, and darker-colored stools concerning for hemato chezia. Anemia/hematochezia. The patient is presenting with a 1-month history of 3-4 liquid bowel movements per day that coincided with the initiation of metformin therapy. Since this hospitalization and sinc e not getting metformin, she has had resolution of her diarrhea with no further recurrences. There w as also some mentioned of hematochezia as an outpatient that might have been contributing to her anem ia seen on labs during this admission; however, she has not had any observed gastrointestinal bleedin g during this admission despite a drop in her H&H. Upon further review of her labs, the drop in her hemoglobin and hematocrit was also concurrently seen with a drop in her white blood cell count and pl atelets indicating more of a hemodilutional picture rather than overt blood loss. She has subsequent ly been transfused 2 units of PRBCs with appropriate response to infusion. At this point, the origin of her anemia seems to be more related to an anemia of chronic disease with darker-colored stools co inciding with the administration of iron supplementation as an outpatient. At this point, she does n ot wish any endoscopic evaluation for this particular condition and is reluctant to proceed with any invasive procedures at this time. RECOMMENDATIONS: 1. Would continue to trend hemoglobin and hematocrit and transfuse as necessary to maintain a hemogl obin and hematocrit of 7/21. 2. Continue to monitor for any signs of active gastrointestinal bleeding. 3. I will discontinue the infectious stool workup, given that she has not had any liquid stools duri ng this admission, making the medication-induced diarrhea diagnosis more likely. We will sign off at this time. Please call with any additional questions.
[2018-01-12 05:02] LABS: #Eosinphils 0.1 thou/uL (0.0-0.7); #Lymphocytes 0.6 thou/uL (1.20-3.40); #Monocytes 0.7 thou/uL (0.11-0.59); #Neutrophils 5.7 thou/uL (1.40-6.50); %Basophils 0.2 % (0.0-1.0); %Eosinophils 0.8 % (0.0-10.0); %Lymphocytes 8.9 % (21.0-51.0); %Monocytes 10.3 % (0.0-10.0); %Neutrophils 79.9 % (42.0-75.0); Hemoglobin 8.7 g/dL (12.0-16.0); Mean Corpuscular HGB CONC 31.7 g/dL (32.0-36.0); Mean Corpuscular Hemoglobin 25.3 pg (27.0-31.0); Mean Corpuscular Volume 79.8 fl (81.0-99.0); Platelet Count 193 thou/uL (130-400); Red Blood Cell (RBC) Count 3.44 mill/uL (4.20-5.40); White Blood Cell (WBC) Count 7.1 thou/uL (4.8-10.8)
[2018-01-12 05:40] LABS: Anion Gap 9 mmol/L (10-20); BUN (Urea Nitrogen) 12 mg/dL (9.8-20.1); Calc. Creatinine Clearance 100 mL/min (70-130); Carbon Dioxide 22 mmol/L (23-31); Chloride 109 mmol/L (98-107); Estimated GFR-MDRD Greater than 90; Glucose 119 mg/dL (83-110); Potassium 3.6 mmol/L (3.5-5.1); Sodium 136 mmol/L (136-145)
[2018-01-12] MEDS: Levothyroxine Sodium 50 MCG TAB PO SCH (05:46)
[2018-01-12] MEDS: Amiodarone 200 MG TAB PO SCH (08:37)
[2018-01-12] MEDS: Carvedilol 6.25 MG TAB PO SCH ×2 (08:37→17:22)
[2018-01-12] MEDS: Aspirin 325 MG TAB PO SCH (08:37)
[2018-01-12 11:19] LABS: #Basophils 0.1 thou/uL (0.0-0.2); #Lymphocytes 0.5 thou/uL (1.20-3.40); #Monocytes 0.7 thou/uL (0.11-0.59); #Neutrophils 6.3 thou/uL (1.40-6.50); %Basophils 0.7 % (0.0-1.0); %Eosinophils 0.4 % (0.0-10.0); %Lymphocytes 6.2 % (21.0-51.0); %Monocytes 9.1 % (0.0-10.0); %Neutrophils 83.6 % (42.0-75.0); Hemoglobin 9.2 g/dL (12.0-16.0); Mean Corpuscular Hemoglobin 25.5 pg (27.0-31.0); Mean Corpuscular Volume 79.6 fl (81.0-99.0); Mean Platelet Volume 7.1 fL (7.4-10.4); Platelet Count 192 thou/uL (130-400); RBC Distribution Width 16.1 % (11.5-14.5); Red Blood Cell (RBC) Count 3.61 mill/uL (4.20-5.40); White Blood Cell (WBC) Count 7.5 thou/uL (4.8-10.8)
--- NOTE | 2018-01-12 11:29 | PQF ---
CLINICAL DOCUMENTATION IMPROVEMENT CLARIFICATION FORM: ICD-10 Updated PLEASE DO AN ADDENDUM TO THE PROGRESS NOTE WITH ANY DOCUMENTATION UPDATES OR ADDITIONS AND CARRY THROUGH TO DC SUMMARY. THANK YOU. DATE: 01/12 ATTN: DR. QUINCY BATISTA Please exercise your independent, professional judgment in responding to the clarification form. Clinical indicators are provided on the bottom of this form for your review Please check appropriate box(s): ___x____ I (concur) with the Wound Care findings as stated below. [ ] Pressure Ulcer: (Stage I: Erythema; Stage II: Partial thickness; Stage III : Full thickness; Stage IV: Necrosis to muscle/bone) [ ] Location: POA: [ ] Yes [ ] No [ ] Unable to determine Stage (I to IV): (Left Right Bilateral N/A ) [ ] Location: POA: [ ] Yes [ ] No [ ] Unable to determine Stage (I to IV): (Left Right Bilateral N/A ) [ ] Deep tissue injury [ ] Other diagnosis [ ] Unable to determine In addition, please specify: Present on Admission (POA): [ x ] Yes [ ] No [ ] Unable to determine For continuity of documentation, please document condition throughout progress notes and discharge summary. Thank You. CLINICAL INDICATORS - SIGNS / SYMPTOMS / LABS WOUND CARE CONSULT DOCUMENTATION 01/10: R HEEL UNSTAGEABLE PRESSURE ULCER; L HEEL UNSTAGEABLE PRESSURE ULCER RISK FACTORS: NONAMBULATORY ADVANCED AGE (88) TREATMENTS: WOUND CARE CONSULT & TREATMENT SPECIALTY MATTRESS HEELS FLOATED THANK YOU! Hayde (This form is maintained as a part of the permanent medical record) 2014 [employer]. All Rights Reserved Hayde Diaz RN, BSN [email or web address] Office: [phone] [facility]
[2018-01-12 11:36] LABS: Vancomycin, Trough 9.8 ug/mL
--- NOTE | 2018-01-12 11:43 | PQF ---
CLINICAL DOCUMENTATION IMPROVEMENT CLARIFICATION FORM: ICD-10 Updated PLEASE DO AN ADDENDUM TO THE PROGRESS NOTE WITH ANY DOCUMENTATION UPDATES OR ADDITIONS AND CARRY THROUGH TO DC SUMMARY. THANK YOU. DATE: 01/12 ATTN: DR. QUINCY BATISTA Please exercise your independent, professional judgment in responding to the clarification form. Clinical indicators are provided on the bottom of this form for your review Please check appropriate box(es): [ ] Sepsis due to: (Pna, UTI, gangrenous gall bladder, etc.) [ ] Severe sepsis with acute organ dysfunction of: (Examples: respiratory failure, encephalopathy, acute kidney failure, other) [ ] Localized infection without sepsis [ x ] Other diagnosis __Bacteremia [ ] Unable to determine For continuity of documentation, please document condition throughout progress notes and discharge summary. Thank You. CLINICAL INDICATORS - SIGNS / SYMPTOMS / LABS JOE ER PRESENTATION 01/09: T: 102.4 WBC: 16.7 TREATMENT: 1L NS & IV ROCEPHIN TRANSFERRED TO [facility] FOR HIGHER LEVEL OF CARE ADMISSION VS 01/09: T: 101.7 WBC: 20.2 CARDIOLOGY CONSULT H&P DOCUMENTATION 01/11: IMPRESSION: 1) SEPSIS W/ 2 OF 2 BLOOD CX POSITIVE ALONG W/ELEVATED TEMP ATTENDING PN 01/10 & (NO ATTENDING H&P AVAILABLE): DX/PLAN: UTI, BACTEREMIA , LEUKOCYTOSIS BLOOD CULTURES 01/09: 2 OF 2 - STREPTOCOCCUS MITIS/ORALIS URINE CX 01/09 : PROTEUS SPECIES & E COLI RISK FACTORS: UTI (E COLI & PROTEUS SPECIES) BACTEREMIA (BLOOD CX 2 OF 2 POSITIVE - STREPTOCOCCUS MITIS/ORALIS) FEVER ADVANCED AGE (88) TREATMENTS: TELEMETRY MONITORING IV ANTIBIOTICS (VANCOMYCIN 01/10 - PRESENT; ROCEPHIN 01/09 - PRESENT) DAILY CBC THANK YOU! Hayde (This form is maintained as a part of the permanent medical record) 2014 [employer]. All Rights Reserved Hayde Diaz RN, BSN [email or web address] Office: [phone] [facility]
[2018-01-12] MEDS: Vancomycin HCl 1.5 GM in Sodium Chloride 0.9% 250 ML 300 ML IVPB SCH (12:37)
[2018-01-12] MEDS: cefTRIAXone\\ROCEPHIN 1 GM, Syringe 0.4 ML in Sterile Water 9.6 ML SLOW IVP SCH (12:37)
--- NOTE | 2018-01-12 13:43 | PDOC.PN ---
- Subjective Encounter Start Date: 01/12/18 Encounter Start Time: 11:45 Subjective: f/u for bacteremia with strep mitis/oralis and UTI with E. coli spp. on -: current Rocephin/Vancomycin. Also concern for GI bleed s/p 2u PRBC's. -: No BM currently and feeling better overall. - Objective MAR Reviewed: Yes Vital Signs & Weight: Vital Signs (12 hours) Temp Pulse Resp BP BP Pulse Ox 01/12/18 12:00 97.8 F 57 L 18 142/70 H 93 L 01/12/18 08:37 144/69 H 01/12/18 08:00 97.2 F L 58 L 17 144/69 H 92 L 01/12/18 04:00 98.6 F 53 L 16 170/72 H 93 L Weight Admit Weight 203 lb Weight 201 lb 4.8 oz I&O: 01/11/18 01/12/18 01/13/18 06:59 06:59 06:59 Intake Total 4875 2560 240 Balance 4875 2560 240 Result Diagrams: 01/12/18 10:58 01/12/18 04:46 Additional Labs: Accuchecks 01/12/18 01/11/18 01/11/18 11:21 20:47 16:38 POC Glucose 156 H 177 H 176 H Microbiology 01/09/18 14:00 Stool - Pending Stool Occult Blood (PHILLIP) - Final 01/09/18 12:35 Urine Straight Catheter Urine Culture - Final Escherichia coli Proteus species 01/09/18 12:55 Venous blood - Left Arm Blood Culture - Preliminary Streptococcus mitis\oralis 01/09/18 12:50 Venous blood - Right Arm Blood Culture - Preliminary Streptococcus mitis\oralis Laboratory Tests 01/10/18 01/10/18 01/10/18 00:31 10:20 10:20 Hgb Iron 9 L Ferritin 42.43 Troponin I 0.207 H TSH 3rd Generation Vancomycin Trough 01/10/18 01/10/18 01/10/18 16:14 17:14 19:31 Hgb Iron Ferritin Troponin I 0.351 H* 0.353 H* 0.547 H* TSH 3rd Generation Vancomycin Trough 01/11/18 01/11/18 01/11/18 01:37 17:01 17:01 Hgb 7.8 L 8.7 L Iron Ferritin Troponin I 0.645 H* TSH 3rd Generation Vancomycin Trough 01/11/18 01/12/18 01/12/18 23:00 04:46 04:46 Hgb 9.1 L 8.7 L Iron Ferritin Troponin I TSH 3rd Generation 1.5171 Vancomycin Trough 01/12/18 10:58 Hgb Iron Ferritin Troponin I TSH 3rd Generation Vancomycin Trough 9.8 Radiology Reviewed by me: Yes (2D echo - EF 55-60%, mod-severe TR, mod LAE) EKG Reviewed by me: Yes (Tele - SR) Phys Exam - Physical Examination Constitutional: NAD alert, responsive HEENT: PERRLA, moist MMs, sclera anicteric, oral pharynx no lesions Neck: no nodes, no JVD, supple Respiratory: no wheezing, no rales, no rhonchi, clear to auscultation bilateral S1, S2 Cardiovascular: RRR, no rub, gallop Gastrointestinal: soft, non-tender, no distention, positive bowel sounds mild LE edema Kerlex dressing to bilateral feet and heels Musculoskeletal: pulses present, edema present Neurological: normal sensation, moves all 4 limbs Psychiatric: normal affect, A&O x 3 Skin: no rash, normal turgor, cap refill <2 seconds Dx/Plan (1) E. coli UTI Code(s): N39.0 - URINARY TRACT INFECTION, SITE NOT SPECIFIED; B96.20 - UNSP ESCHERICHIA COLI THE CAUSE OF DISEASES CLASSD ELSWHR Status: Acute Comment: Continue with Rocephin 1gm IV q24h, continue IV abx another 24h then convert to po (2) Bacteremia due to Streptococcus Code(s): R78.81 - BACTEREMIA; B95.5 - UNSP STREPTOCOCCUS THE CAUSE OF DISEASES CLASSD ELSWHR Status: Acute Comment: Strep spp noted, continue Rocephin as organism sensitive, likely transition to po option in 24h (3) GI bleed Code(s): K92.2 - GASTROINTESTINAL HEMORRHAGE, UNSPECIFIED Status: Suspected Comment: Suspected, continue serial H/H monitoring, Eliquis on hold currently (4) Acute blood loss anemia Code(s): D62 - ACUTE POSTHEMORRHAGIC ANEMIA Status: Acute Comment: s/p 2u PRBC's, H/H stable currently, start Protonix 40mg po daily, CT abd unrevealing as to source. (5) Iron deficiency anemia Code(s): D50.9 - IRON DEFICIENCY ANEMIA, UNSPECIFIED Status: Chronic Comment : Start FeSO4 325mg BID (6) Demand ischemia of myocardium Code(s): I24.8 - OTHER FORMS OF ACUTE ISCHEMIC HEART DISEASE Status: Acute Comment: Multifactorial, med mgmt, ASA, Coreg, Lisinopril - Plan plan discussed w/ family, continue antibiotics, PT/OT, social media analyst, DVT proph w/SCDs Stable currently -: Continue Rocephin 1gm IV q24h -: Start Protonix 40mg po daily -: Start FeSO4 325mg BID -: Hold Eliquis another 24h * PT evaluation for functional assessment * CM for assistance with SNF options * AM lab: BMP, CBC
[2018-01-12] MEDS: Sodium Chloride 0.9% 1,000 ML IV SCH (15:38)
[2018-01-12] MEDS: Ferrous Sulfate 325 MG TAB PO SCH (17:22)
[2018-01-12 17:24] LABS: Hemoglobin 10.1 g/dL (12.0-16.0); Platelet Count 206 thou/uL (130-400)
[2018-01-12] MEDS ORDERED: Vancomycin HCl 1 GM in Premix Bag 1 BAG IVPB SCH (23:59)
[2018-01-13] MEDS: Acetaminophen 325 MG TAB PO PRN ×2 (00:12→23:19)
[2018-01-13] MEDS: Levothyroxine Sodium 50 MCG TAB PO SCH ×2 (05:12→09:39)
[2018-01-13 05:47] LABS: Anion Gap 12 mmol/L (10-20); BUN (Urea Nitrogen) 12 mg/dL (9.8-20.1); Calc. Creatinine Clearance 92 mL/min (70-130); Calcium 8.3 mg/dL (7.8-10.44); Carbon Dioxide 20 mmol/L (23-31); Chloride 109 mmol/L (98-107); Estimated GFR-MDRD 90; Glucose 199 mg/dL (83-110); Sodium 137 mmol/L (136-145)
[2018-01-13] MEDS ORDERED: ACIDOPH PARACASEI B LACTIS PO SCH (09:00)
[2018-01-13] MEDS ORDERED: Levothyroxine Sodium 50 MCG TAB PO SCH (09:00)
[2018-01-13] MEDS ORDERED: Non-Formulary Item 1 EACH (Cholecalciferol (Vitamin D3) [Vitamin D3] 2,000 UNIT) PO SCH (09:00)
[2018-01-13] MEDS ORDERED: CHROMIUM PICOLINATE PO SCH ×2 (09:00)
[2018-01-13] MEDS: Ferrous Sulfate 325 MG TAB PO SCH ×2 (09:38→16:27)
[2018-01-13] MEDS: Aspirin 325 MG TAB PO SCH (09:38)
[2018-01-13] MEDS: Lactinex Tablet PO SCH (09:39)
[2018-01-13] MEDS: Carvedilol 6.25 MG TAB PO SCH ×2 (09:39→16:26)
[2018-01-13] MEDS: Amiodarone 200 MG TAB PO SCH (09:39)
[2018-01-13] MEDS: Lisinopril 5 MG TAB PO SCH (09:49)
[2018-01-13] MEDS: Sodium Chloride 0.9% 1,000 ML IV SCH (09:50)
[2018-01-13] MEDS: cefTRIAXone\\ROCEPHIN 1 GM, Syringe 0.4 ML in Sterile Water 9.6 ML SLOW IVP SCH (12:29)
--- NOTE | 2018-01-13 16:30 | PDOC.PN ---
- Subjective Encounter Start Date: 01/13/18 Encounter Start Time: 16:20 Subjective: f/u for Strep mitis/oralis bacteremia and UTI with e. coli on Rocephin. -: Feels better overall but weak. Appetite not returned. No melena. - Objective MAR Reviewed: Yes Vital Signs & Weight: Vital Signs (12 hours) Temp Pulse Resp BP BP Pulse Ox 01/13/18 16:26 180/86 H 01/13/18 16:00 97.8 F 56 L 17 180/86 H 96 01/13/18 12:00 97.7 F 52 L 18 165/74 H 01/13/18 09:49 58 L 202/94 H 01/13/18 09:40 98.1 F 58 L 18 202/94 H 94 L 01/13/18 09:39 202/94 H 01/13/18 08:00 98.1 F 58 L 18 Weight Admit Weight 201 lb Weight 201 lb 4.8 oz I&O: 01/12/18 01/13/18 01/14/18 06:59 06:59 06:59 Intake Total 2560 1830 Balance 2560 1830 Result Diagrams: 01/12/18 17:17 01/13/18 04:48 Additional Labs: Accuchecks 01/13/18 01/12/18 01/12/18 11:34 21:13 16:40 POC Glucose 213 H 202 H 165 H 01/12/18 06:09 POC Glucose 154 H Microbiology 01/12/18 16:19 Stool Escherichia coli 0157 Culture - Final 01/12/18 16:19 Stool Campylobacter Antigen Assay - Final 01/12/18 16:19 Stool Shiga Toxin Test - Final 01/12/18 16:19 Stool C. difficile GDH Antigen & Toxins - Final 01/09/18 14:00 Stool - Pending Stool Occult Blood (PHILLIP) - Final 01/09/18 12:35 Urine Straight Catheter Urine Culture - Final Escherichia coli Proteus species 01/12/18 16:19 Stool Stool Culture - Preliminary 01/09/18 12:55 Venous blood - Left Arm Blood Culture - Preliminary Streptococcus mitis\oralis 01/09/18 12:50 Venous blood - Right Arm Blood Culture - Preliminary Streptococcus mitis\oralis Laboratory Tests 04/28/18 04/28/18 04/28/18 00:31 10:20 10:20 Hgb Iron 9 L Ferritin 42.43 Troponin I 0.207 H TSH 3rd Generation Vancomycin Trough 01/10/18 01/10/18 01/10/18 16:14 17:14 19:31 Hgb Iron Ferritin Troponin I 0.351 H* 0.353 H* 0.547 H* TSH 3rd Generation Vancomycin Trough 01/11/18 01/11/18 01/11/18 01:37 17:01 17:01 Hgb 7.8 L 8.7 L Iron Ferritin Troponin I 0.645 H* TSH 3rd Generation Vancomycin Trough 01/11/18 01/12/18 01/12/18 23:00 04:46 04:46 Hgb 9.1 L 8.7 L Iron Ferritin Troponin I TSH 3rd Generation 1.5171 Vancomycin Trough 01/12/18 01/12/18 10:58 10:58 Hgb 9.2 L Iron Ferritin Troponin I TSH 3rd Generation Vancomycin Trough 9.8 Radiology Reviewed by me: Yes (2D echo - EF 55-60%, mod-severe TR, mod LAE) EKG Reviewed by me: Yes (Tele - Sinus bradycardia) Phys Exam - Physical Examination Constitutional: NAD alert, responds to questions HEENT: PERRLA, moist MMs, sclera anicteric, oral pharynx no lesions Neck: no nodes, no JVD, supple few basilar crackles Respiratory: no wheezing, no rhonchi II/ LIBERTAD RUSB S1, S2 Cardiovascular: RRR, no rub, gallop Gastrointestinal: soft, non-tender, no distention, positive bowel sounds Musculoskeletal: pulses present, edema present Neurological: non-focal, moves all 4 limbs Psychiatric: A&O x 3 Skin: no rash, normal turgor, cap refill <2 seconds Dx/Plan (1) E. coli UTI Code(s): N39.0 - URINARY TRACT INFECTION, SITE NOT SPECIFIED; B96.20 - UNSP ESCHERICHIA COLI THE CAUSE OF DISEASES CLASSD ELSWHR Status: Acute Comment: D/C Rocephin, start Levaquin 500mg po daily (2) Bacteremia due to Streptococcus Code(s): R78.81 - BACTEREMIA; B95.5 - UNSP STREPTOCOCCUS THE CAUSE OF DISEASES CLASSD ELSWHR Status: Acute Comment: Strep spp noted, d/c Rocephin and start Levaquin 500mg daily (3) GI bleed Code(s): K92.2 - GASTROINTESTINAL HEMORRHAGE, UNSPECIFIED Status: Suspected Comment: Suspected, continue serial H/H monitoring, Eliquis on hold currently, H /H stable currently (4) Acute blood loss anemia Code(s): D62 - ACUTE POSTHEMORRHAGIC ANEMIA Status: Acute Comment: s/p 2u PRBC's, H/H stable currently, start Protonix 40mg po daily, CT abd unrevealing as to source. (5) Iron deficiency anemia Code(s): D50.9 - IRON DEFICIENCY ANEMIA, UNSPECIFIED Status: Chronic Comment : Start FeSO4 325mg BID (6) Demand ischemia of myocardium Code(s): I24.8 - OTHER FORMS OF ACUTE ISCHEMIC HEART DISEASE Status: Acute Comment: Multifactorial, med mgmt, ASA, Coreg, Lisinopril - Plan continue antibiotics, PT/OT, social media developer, DVT proph w/SCDs Stable overall -: Start Levaquin 500mg po daily -: D/C Rocephin -: Saline lock IVF -: Hold Eliquis * AM lab: H/H * [facility]
[2018-01-13] MEDS: hydrALAZINE 20 MG/ML VIAL SLOW IVP PRN (21:23)
[2018-01-14] MEDS: Levothyroxine Sodium 50 MCG TAB PO SCH (05:57)
[2018-01-14] MEDS: Ferrous Sulfate 325 MG TAB PO SCH ×2 (08:32→18:13)
[2018-01-14] MEDS: Amiodarone 200 MG TAB PO SCH (08:33)
[2018-01-14] MEDS: Lactinex Tablet PO SCH (08:33)
[2018-01-14] MEDS: Lisinopril 5 MG TAB PO SCH (08:33)
[2018-01-14] MEDS: Carvedilol 6.25 MG TAB PO SCH ×2 (08:33→17:30)
[2018-01-14] MEDS: Aspirin 325 MG TAB PO SCH (08:33)
--- NOTE | 2018-01-14 10:57 | PQF ---
CLINICAL DOCUMENTATION IMPROVEMENT CLARIFICATION FORM: ICD-10 Updated PLEASE DO AN ADDENDUM TO THE PROGRESS NOTE WITH ANY DOCUMENTATION UPDATES OR ADDITIONS AND CARRY THROUGH TO DC SUMMARY. THANK YOU. DATE: 01/14 ATTN: DR. QUINCY BATISTA Progress note dated 01/13/18 has demand ischemia in problem list, please see. Please exercise your independent, professional judgment in responding to the clarification form. Clinical indicators are provided on the bottom of this form for your review Please check appropriate box(s): AMI TYPE: [ ] NSTEMI [ ] AMI Type II [ x ] DEMAND ISCHEMIA [ ] Other diagnosis [ ] Unable to determine CLINICAL INDICATORS - SIGNS / SYMPTOMS / LABS ER PHYSICIAN DIAGNOSES DOCUMENTATION 01/09: NSTEMI, GI BLEED, ANEMIA, UTI ATTENDING PN 01/10: ELEV TROPONIN, NSTEMI PN 01/11: ELEVATED TROPONIN, NSTEMI PN 01/13 & 2: DX/PLAN: 6) DEMAND ISCHEMIA OF MYOCARDIUM CARDIOLOGY CONSULT 01/11 - PLAN: SHE HAS BEEN TOTALLY ASYMPTOMATIC AND THE ELEVATED TROPONIN I CERTAINLY COULD BE D/T DEMAND ISCHEMIA CARDIOLOGY PN 01/12: PROBABLE DEMAND ISCHEMIA, WILL FOLLOW AT A DISTANCE TROP I: 0.182, 0.181, 0.207, 0.351, 0.353, 0.547, 0.645 (01/09 - ) RISKS: SUSPECTED GI BLEED ANEMIA UTI (E COLI) BACTEREMIA (STREPTOCOCCUS) TREATMENTS: TRANSFUSION 2U PRBC'S (01/10) CARDIOLOGY CONSULT ECHO IV ANTIBIOTICS (VANCOMYCIN 01/10 - 01/12; ROCEPHIN 01/09 - 01/13) THANK YOU! Hayde (This form is maintained as a part of the permanent medical record) 2014 [employer] All Rights Reserved Hayde Diaz RN, BSN [email or web address] Office: [phone] [facility]
[2018-01-14] MEDS: hydrALAZINE 20 MG/ML VIAL SLOW IVP PRN ×2 (12:06→18:15)
--- NOTE | 2018-01-14 14:48 | PDOC.PN ---
- Subjective Encounter Start Date: 01/14/18 Encounter Start Time: 14:40 Subjective: f/u for strep mitis/oralis bacteremia and UTI with E. coli on current -: Rocephin and Levaquin. Feels weak but overall doing ok. No diarrhea -: or melena. - Objective MAR Reviewed: Yes Vital Signs & Weight: Vital Signs (12 hours) Temp Pulse Resp BP BP Pulse Ox 01/14/18 12:06 57 L 177/96 H 01/14/18 11:43 97.5 F L 57 L 22 H 177/96 H 01/14/18 08:33 59 L 161/74 H 01/14/18 08:00 97.2 F L 59 L 22 H 94 L 01/14/18 07:36 97.2 F L 50 L 22 H 161/74 H 99 01/14/18 04:00 97.5 F L 59 L 20 169/75 H 95 Weight Admit Weight 201 lb Weight 203 lb 2.213 oz I&O: 01/13/18 01/14/18 01/15/18 06:59 06:59 06:59 Intake Total 1830 1230 120 Balance 1830 1230 120 Result Diagrams: 01/12/18 17:17 01/13/18 04:48 Additional Labs: Accuchecks 01/14/18 01/14/18 01/13/18 11:29 06:19 21:13 POC Glucose 178 H 170 H 190 H 01/13/18 01/13/18 16:42 06:22 POC Glucose 205 H 229 H Microbiology 01/12/18 16:19 Stool Escherichia coli 0157 Culture - Final 01/12/18 16:19 Stool Campylobacter Antigen Assay - Final 01/12/18 16:19 Stool Shiga Toxin Test - Final 01/12/18 16:19 Stool C. difficile GDH Antigen & Toxins - Final 01/09/18 14:00 Stool - Pending Stool Occult Blood (PHILLIP) - Final 01/09/18 12:35 Urine Straight Catheter Urine Culture - Final Escherichia coli Proteus species 01/12/18 16:19 Stool Stool Culture - Preliminary 01/09/18 12:55 Venous blood - Left Arm Blood Culture - Preliminary Streptococcus mitis\oralis 01/09/18 12:50 Venous blood - Right Arm Blood Culture - Preliminary Streptococcus mitis\oralis Laboratory Tests 01/10/18 01/10/18 01/10/18 00:31 10:20 10:20 Hgb Iron 9 L Ferritin 42.43 Troponin I 0.207 H TSH 3rd Generation Vancomycin Trough 01/10/18 01/10/18 01/10/18 16:14 17:14 19:31 Hgb Iron Ferritin Troponin I 0.351 H* 0.353 H* 0.547 H* TSH 3rd Generation Vancomycin Trough 01/11/18 01/11/18 01/11/18 01:37 17:01 17:01 Hgb 7.8 L 8.7 L Iron Ferritin Troponin I 0.645 H* TSH 3rd Generation Vancomycin Trough 01/11/18 01/12/18 01/12/18 23:00 04:46 04:46 Hgb 9.1 L 8.7 L Iron Ferritin Troponin I TSH 3rd Generation 1.5171 Vancomycin Trough 01/12/18 01/12/18 10:58 10:58 Hgb 9.2 L Iron Ferritin Troponin I TSH 3rd Generation Vancomycin Trough 9.8 Phys Exam - Physical Examination Constitutional: NAD alert, responsive, smiles HEENT: PERRLA, moist MMs, sclera anicteric, oral pharynx no lesions Neck: no nodes, no JVD, supple Respiratory: no wheezing, no rales, no rhonchi, clear to auscultation bilateral II/ LIBERTAD RUSB S1, S2 Cardiovascular: RRR, no rub, gallop Gastrointestinal: soft, non-tender, no distention, positive bowel sounds Musculoskeletal: pulses present, edema present Neurological: non-focal, normal sensation, moves all 4 limbs Psychiatric: normal affect, A&O x 3 Skin: no rash, normal turgor, cap refill <2 seconds Dx/Plan (1) E. coli UTI Code(s): N39.0 - URINARY TRACT INFECTION, SITE NOT SPECIFIED; B96.20 - UNSP ESCHERICHIA COLI THE CAUSE OF DISEASES CLASSD ELSWHR Status: Acute Comment: D/C Rocephin, start Levaquin 500mg po daily (2) Bacteremia due to Streptococcus Code(s): R78.81 - BACTEREMIA; B95.5 - UNSP STREPTOCOCCUS THE CAUSE OF DISEASES CLASSD ELSWHR Status: Acute Comment: Strep spp noted, d/c Rocephin and start Levaquin 500mg daily (3) GI bleed Code(s): K92.2 - GASTROINTESTINAL HEMORRHAGE, UNSPECIFIED Status: Suspected Comment: Suspected, continue serial H/H monitoring, Eliquis on hold currently, H /H stable currently (4) Acute blood loss anemia Code(s): D62 - ACUTE POSTHEMORRHAGIC ANEMIA Status: Acute Comment: s/p 2u PRBC's, H/H stable currently, start Protonix 40mg po daily, CT abd unrevealing as to source. (5) Iron deficiency anemia Code(s): D50.9 - IRON DEFICIENCY ANEMIA, UNSPECIFIED Status: Chronic Comment : Start FeSO4 325mg BID (6) Demand ischemia of myocardium Code(s): I24.8 - OTHER FORMS OF ACUTE ISCHEMIC HEART DISEASE Status: Acute Comment: Multifactorial, med mgmt, ASA, Coreg, Lisinopril - Plan continue antibiotics, PT/OT, social work program coordinator, DVT proph w/SCDs Stable overall -: Continue Levaquin 500mg po daily -: Continue ASA and Coreg -: Resume CoQ10 daily -: Continue FeSO4 325mg BID * Floranex daily * CM assisting with SNF options
[2018-01-15] MEDS: Levothyroxine Sodium 50 MCG TAB PO SCH (04:40)
[2018-01-15] MEDS ORDERED: Sodium Chloride 0.9% 10 ML ONE (07:23)
[2018-01-15] MEDS: Aspirin 325 MG TAB PO SCH (08:13)
[2018-01-15] MEDS: Ferrous Sulfate 325 MG TAB PO SCH ×2 (08:14→16:41)
[2018-01-15] MEDS: Lactinex Tablet PO SCH (08:14)
[2018-01-15] MEDS: Amiodarone 200 MG TAB PO SCH (08:14)
[2018-01-15] MEDS: Ubidecarenone 50 MG CAP PO SCH (08:16)
[2018-01-15] MEDS: Lisinopril 5 MG TAB PO SCH (08:18)
[2018-01-15] MEDS: Carvedilol 6.25 MG TAB PO SCH ×2 (08:19→16:41)
[2018-01-15] MEDS ORDERED: Non-Formulary Item 1 EACH (Ubidecarenone [Coq-10] 100 MG) PO SCH (09:00)
[2018-01-15 10:56] VITALS: BMI 31.8
--- NOTE | 2018-01-15 16:46 | PDOC.PN ---
- Subjective Encounter Start Date: 01/15/18 Encounter Start Time: 16:30 Subjective: f/u for bacteremia and UTI with e.coli. Tx with Levaquin and overall -: feels better. Still weak and not ambulatory. Appetite depressed but -: eating small portions. - Objective MAR Reviewed: Yes Vital Signs & Weight: Vital Signs (12 hours) Temp Pulse Resp BP BP BP Pulse Ox 01/15/18 16:41 112/64 01/15/18 15:30 60 20 112/64 95 01/15/18 08:19 170/78 H 01/15/18 08:18 61 170/78 H 01/15/18 08:00 97.2 F L 61 20 94 L 01/15/18 05:00 97.7 F 79 18 157/72 H 94 L Weight Admit Weight 201 lb Weight 202 lb 14.862 oz I&O: 01/14/18 01/15/18 01/16/18 06:59 06:59 06:59 Intake Total 1230 445 Balance 1230 445 Result Diagrams: 01/12/18 17:17 01/13/18 04:48 Additional Labs: Accuchecks 01/15/18 01/15/18 01/14/18 11:13 04:51 20:09 POC Glucose 174 H 145 H 191 H 01/14/18 16:42 POC Glucose 165 H Phys Exam - Physical Examination Constitutional: NAD alert, responsive HEENT: PERRLA, moist MMs, sclera anicteric, oral pharynx no lesions Neck: no nodes, no JVD, supple Respiratory: no wheezing, no rales, no rhonchi, clear to auscultation bilateral II/ LIBERTAD RUSB S1, S2 Cardiovascular: RRR, no rub, gallop Gastrointestinal: soft, non-tender, no distention, positive bowel sounds Musculoskeletal: no edema, pulses present Neurological: normal sensation, moves all 4 limbs Psychiatric: A&O x 3 Skin: no rash, normal turgor, cap refill <2 seconds Dx/Plan (1) E. coli UTI Code(s): N39.0 - URINARY TRACT INFECTION, SITE NOT SPECIFIED; B96.20 - UNSP ESCHERICHIA COLI THE CAUSE OF DISEASES CLASSD ELSWHR Status: Acute Comment: D/C Rocephin, start Levaquin 500mg po daily and continue 5 days (2) Bacteremia due to Streptococcus Code(s): R78.81 - BACTEREMIA; B95.5 - UNSP STREPTOCOCCUS THE CAUSE OF DISEASES CLASSD ELSWHR Status: Acute Comment: Strep spp noted, d/c Rocephin and start Levaquin 500mg daily (3) GI bleed Code(s): K92.2 - GASTROINTESTINAL HEMORRHAGE, UNSPECIFIED Status: Suspected Comment: Suspected, continue serial H/H monitoring, Eliquis on hold currently, H /H stable currently (4) Acute blood loss anemia Code(s): D62 - ACUTE POSTHEMORRHAGIC ANEMIA Status: Acute Comment: s/p 2u PRBC's, H/H stable currently, start Protonix 40mg po daily, CT abd unrevealing as to source. (5) Iron deficiency anemia Code(s): D50.9 - IRON DEFICIENCY ANEMIA, UNSPECIFIED Status: Chronic Comment : Start FeSO4 325mg BID (6) Demand ischemia of myocardium Code(s): I24.8 - OTHER FORMS OF ACUTE ISCHEMIC HEART DISEASE Status: Acute Comment: Multifactorial, med mgmt, ASA, Coreg, Lisinopril - Plan continue antibiotics, PT/OT, social staff worker, DVT proph w/SCDs Stable overall -: Continue Levaquin 500mg po daily -: Continue Floranex -: CM assisting with SNF transfer -: Hold Eliquis due to GI bleed * Plan for d/c SNF in 24h, likely [facility]
[2018-01-16] MEDS: Levothyroxine Sodium 50 MCG TAB PO SCH (05:51)
[2018-01-16] MEDS: Aspirin 325 MG TAB PO SCH (07:50)
[2018-01-16] MEDS: Lisinopril 5 MG TAB PO SCH (07:50)
[2018-01-16] MEDS: Amiodarone 200 MG TAB PO SCH (07:51)
[2018-01-16] MEDS: Lactinex Tablet PO SCH (07:51)
[2018-01-16] MEDS: Ubidecarenone 50 MG CAP PO SCH (07:52)
[2018-01-16] MEDS: Carvedilol 6.25 MG TAB PO SCH (07:52)
[2018-01-16] MEDS: Ferrous Sulfate 325 MG TAB PO SCH (07:52)
[2018-01-16 16:19] VITALS: BP 162/78; TEMP 97.4
--- NOTE | 2018-01-17 02:18 | DIS ---
DATE OF ADMISSION: 01/09/2018 DATE OF DISCHARGE: 01/16/2018 DISCHARGE DIAGNOSES: 1. Escherichia coli urinary tract infection, improved. 2. Bacteremia due to Streptococcus mitis/oralis. 3. Gastrointestinal bleed, suspected secondarily to Eliquis. 4. Acute blood loss anemia, status post 2 units of packed red blood cells, stable. 5. Iron deficiency anemia. 6. Demand ischemia of myocardium. 7. Diabetes mellitus type 2, diet managed. 8. Nonambulatory status. CONSULTATIONS: Dr. Lara with GI Service. Dr. Perera with Cardiology Service. PERTINENT LABORATORY AND X-RAY FINDINGS: Troponin ranged between 0.182 to 0.645. Serum iron 9, TIBC 318, ferritin 42.4, TSH 1.52. CBC showed a white blood cell count ranged between 7.1 to 10.9, hemog lobin ranged between 7.8 to 10.1. Stool culture dated 01/12/2018 negative. C. difficile antigen and toxin dated 01/12/2018 negative. Blood cultures x2 dated 01/09/2018 showed Streptococcus mitis/oral is. Urine culture dated 01/09/2018 positive for E. coli and Proteus species. CT of the abdomen and pelvis dated 01/11/2018 showed chronic findings without an acute process identified. A 2D transthora cic echocardiogram dated 01/12/2018 showed ejection fraction 55%-60%. Moderate to severe left atrial enlargement. Moderate to severe tricuspid valve regurgitation. Pulmonary artery systolic pressure 48 mmHg. HOSPITAL COURSE: The patient was admitted to the telemetry unit after initially presenting with decr easing hemoglobin with associated generalized weakness and malaise. The patient was noted with initi al hemoglobin of 7.3 with guaiac positive stool. The patient was noted on Eliquis and aspirin therap y with serial monitoring of hemoglobin showing overall decreasing trend. The patient received 2 unit s of packed red blood cells and was discontinued on aspirin and Eliquis therapy. The patient was elena luated by the GI Service with recommendations for continual monitoring of active bleeding. The patie nt underwent rule out for infectious process to include Clostridium difficile antigen and toxin. The patient's hemoglobin did stabilize after discontinuation of anticoagulation and antiplatelet regimen requiring no further transfusions in the hospital course. Due to the stabilization of her hemoglobi n, the patient was not deemed an appropriate candidate for any further intervention or endoscopy. Cu rrent recommendations are to discontinue anticoagulation indefinitely. The patient also was concomit antly treated for urinary tract infection with E. coli as well as a bacteremia with Streptococcal spe cies including mitis/oralis. The patient was placed on Rocephin and vancomycin throughout the hospit al course, transitioning to Levaquin 500 mg daily. Recommendations are to continue Levaquin therapy for approximately 7 days after discharge. The patient was also evaluated by the case management serv ice after family requesting to seek new options for skilled care after discharge. The patient was ev aluated and deemed an appropriate candidate for transfer to [facility] in [place], [place] for [facility] supervised medical care. On the day of discharge, I have examined the patient and discussed p ertinent radiographic and laboratory findings. I have discussed the discharge planning, at which poi nt, the patient has verbalized understanding and agreement. The patient overall clinically stabilize d and ready for discharge on 01/16/2018. DISCHARGE MEDICATIONS: 1. Amiodarone 200 mg 1 tab p.o. daily. 2. Vitamin C 500 mg p.o. daily. 3. Enteric-coated aspirin 325 mg p.o. daily. 4. Coreg 6.25 mg p.o. b.i.d. 5. Vitamin D3 2000 units p.o. daily. 6. Chromium picolinate 500 mEq daily. 7. Feosol 325 mg p.o. b.i.d. 8. Humulin sliding scale b.i.d. 9. Probiotic two capsules p.o. daily. 10. Levaquin 500 mg p.o. daily, stop on 01/23/2018. 11. Levothyroxine 50 mcg 1 tab p.o. daily. 12. Lisinopril 5 mg 1 tablet p.o. daily. 13. Multivitamin 1 tab p.o. daily. 14. Protonix 40 mg 1 tab p.o. daily. 15. MiraLax 17 g p.o. b.i.d. 16. Coenzyme Q10 100 mg p.o. daily. FOLLOWUP: The patient to follow up with Dr. Donnell Bae at [facility] in [place] after disch arge. CONDITION ON DISCHARGE: Fair. ACTIVITY: Ad fransisca. Nonambulatory status. DIET: ADA. CODE STATUS: FULL. DISPOSITION: Discharged to [facility], 01/16/2018. Total time preparing and coordinating discharge is 35 minutes.
--- NOTE | 2018-01-19 13:40 | HP ---
CHIEF COMPLAINT: Blood in stool and urine. HISTORY OF PRESENT ILLNESS: This is an 88-year-old female, who has a known history of atrial fibrill ation, on anticoagulation; hypothyroidism; and hypertension; who presents with a chief complaint of b lood in stool and urine. She also complains of several days to weeks of weakness and generalized fat igability. She was sent over from an outside ER to our ER and then subsequently our ER was requested for inpatient admission. The patient herself is a marginal historian in regard to the exact timing of events from today. It appears that the patient presented to the initial Outlying Emergency Depart ment, she was noted to have a hemoglobin of 7.3 and a fever of 102.4. This was accompanied by findin gs in our Emergency Department of leukocytosis and elevated troponin for which the patient was given IV fluids, ceftriaxone and aspirin. Please see the ER reports for full details. REVIEW OF SYSTEMS: As per HPI and includes the following: Constitutional: Denies any recent weight change, weight gain or loss. Endorses subjective fevers without chills. HEENT: Denies any new hea daches or dizziness. Denies any vision changes. Cardiovascular: No new chest pain or chest pressur e. No chest pain with exertion. No overt shortness of breath with exertion, easy fatigability with exertion. No left-sided arm numbness or tingling. Respiratory: No recent upper respiratory type in fections. No cough, no congestion, no shortness of breath, just easy fatigability with any exertion as described above. Gastrointestinal: No nausea, no vomiting, no abdominal pain. Please see the ab ove regarding stool. Genitourinary: No dysuria, changes in urinary frequency, quality or quantity. Musculoskeletal: No new myalgias or arthralgias. PAST MEDICAL HISTORY: As per above significant for: 1. Atrial fibrillation. 2. Hypothyroidism. 3. Type 2 diabetes. 4. Hyperlipidemia. 5. Hypertension. 6. Status post hysterectomy. 7. Status post right knee surgery. HOME MEDICATIONS: Please see the EMR. FAMILY HISTORY: The patient denies any known family history of issues with bladder or urine or easy bleeding. ALLERGIES: No known drug allergies. PHYSICAL EXAMINATION: GENERAL: The patient is awake, alert, conversant. No acute distress. HEENT: Normocephalic, atraumatic. No evidence of gum bleeding, slightly dry mucous membranes. CARDIOVASCULAR: S1, S2. Pulses 2+ bilateral upper extremities. RESPIRATORY: Grossly clear to auscultation. No wheezes, rales or rhonchi. ABDOMEN: Positive bowel sounds, soft, nontender to palpation. MUSCULOSKELETAL: Moving all 4 extremities. LABORATORY DATA AND IMAGING: WBC 20.2, hemoglobin 8.0, hematocrit 25.5, platelets 275. Sodium 139; potassium 4.0; BUN 14; creatinine 0.92; glucose 178; calcium 8.5; AST 37; ALT 38; alkaline phosphatas e 89; troponin 0.182, followed by 0.181, followed by 0.207; total protein 6.4; albumin 3.0. ASSESSMENT AND PLAN: An 88-year-old female with a chief complaint of hematuria and hematochezia. 1. Hematuria. UA from outlying facility was concerning for urinary tract infection. She has been g iven empiric ceftriaxone. We will continue with empiric ceftriaxone, pending urine culture speciatio n. 2. ? hematochezia, hemoccult stool. The patient had a bowel movement. I appreciate GI consultation . Maintain serial CBC. Check two large bore IV with IV fluid resuscitation, continue to closely mon itor. 3. Leukocytosis and concern for systemic inflammatory response syndrome in the setting of a urinary tract infection. Pending blood cultures empiric antibiotics otherwise. Admit on an inpatient basis.
== END 2018-01-16 17:29 | DRG 690 ==
LOC: ERS 16:41 → 2NO 20:00 → T4-A 01-13 21:59
PROVIDERS: ADMIT Internal Medicine; ATTEND Internal Medicine
PROC: 30233N1 Transfusion of Nonautologous Red Blood Cells into Peripheral Vein, Percutaneous Approach (ICD-10-PCS; principal; 2018-01-10)
DX: N39.0 Urinary tract infection, site not specified (principal); R78.81 Bacteremia; K92.2 Gastrointestinal hemorrhage, unspecified; I24.8 Other forms of acute ischemic heart disease; D62 Acute posthemorrhagic anemia; L89.620 Pressure ulcer of left heel, unstageable; L89.610 Pressure ulcer of right heel, unstageable; E11.9 Type 2 diabetes mellitus without complications; E03.9 Hypothyroidism, unspecified; E78.5 Hyperlipidemia, unspecified; I48.0 Paroxysmal atrial fibrillation; I11.0 Hypertensive heart disease with heart failure; I50.9 Heart failure, unspecified; B96.20 Unspecified Escherichia coli [E. coli] as the cause of diseases classified elsewhere; B95.4 Other streptococcus as the cause of diseases classified elsewhere; D50.9 Iron deficiency anemia, unspecified; T45.515A Adverse effect of anticoagulants, initial encounter; Z79.82 Long term (current) use of aspirin; Z79.4 Long term (current) use of insulin
CPT/HCPCS: 36415; 36416; 36430; 74176; 80048; 80053; 80202; 82728; 83540; 83550; 84443; 84484; 85025; 85046; 85730; 86850; 86900; 86901; 87045; 87046; 87324; 87449; 87899; 93005; 93306; 96372; 96374; A4216; C9113; G8981-GP-CL; G8982-GP-CK; J0360; J0696; J1644; J1650; J3370; J7050; P9016

== ENCOUNTER 2018-03-02 17:15 | Emergency (ER) | payer MEDICAID, MEDICARE ==
[2018-03-02 18:42] LABS: #Eosinphils 0.2 thou/uL (0.0-0.7); #Lymphocytes 0.9 thou/uL (1.20-3.40); #Monocytes 0.9 thou/uL (0.11-0.59); #Neutrophils 7.1 thou/uL (1.40-6.50); %Basophils 0.2 % (0.0-1.0); %Eosinophils 1.9 % (0.0-10.0); %Lymphocytes 9.3 % (21.0-51.0); %Monocytes 10.2 % (0.0-10.0); %Neutrophils 78.4 % (42.0-75.0); Hemoglobin 11.7 g/dL (12.0-16.0); Mean Corpuscular HGB CONC 32.4 g/dL (32.0-36.0); Mean Corpuscular Hemoglobin 26.9 pg (27.0-31.0); Mean Corpuscular Volume 82.9 fl (81.0-99.0); Mean Platelet Volume 7.3 fL (7.4-10.4); Platelet Count 225 thou/uL (130-400); RBC Distribution Width 19.2 % (11.5-14.5); Red Blood Cell (RBC) Count 4.37 mill/uL (4.20-5.40); White Blood Cell (WBC) Count 9.1 thou/uL (4.8-10.8)
[2018-03-02 18:49] LABS: PTT 30.3 SEC (22.9-36.1); Prothrombin Time 12.9 SEC (12.0-14.7)
[2018-03-02 19:02] LABS: ALT (SGPT) 16 U/L (8-55); AST (SGOT) 27 U/L (5-34); Albumin 3.3 g/dL (3.4-4.8); Alkaline Phosphatase 109 U/L (40-150); Anion Gap 16 mmol/L (10-20); BUN (Urea Nitrogen) 51 mg/dL (9.8-20.1); Bilirubin, Total 0.7 mg/dL (0.2-1.2); Calc. Creatinine Clearance 0 mL/min (70-130); Calcium 9.2 mg/dL (7.8-10.44); Carbon Dioxide 30 mmol/L (23-31); Chloride 94 mmol/L (98-107); Estimated GFR-MDRD 49; Globulin 3.4 g/dL (2.4-3.5); Glucose 153 mg/dL (83-110); Magnesium 1.9 mg/dL (1.6-2.6); Potassium 5.2 mmol/L (3.5-5.1); Protein, Total 6.7 g/dL (6.0-8.3); Sodium 135 mmol/L (136-145)
[2018-03-02 19:09] LABS: CKMB 1.6 ng/mL (0-6.6); Troponin I Less than 0.010 ng/mL (< 0.028)
== END 2018-03-02 23:15 | disposition home or self-care (01) ==
LOC: ERS 17:15
DX: I83.029 Varicose veins of left lower extremity with ulcer of unspecified site (principal); E11.9 Type 2 diabetes mellitus without complications; E03.9 Hypothyroidism, unspecified; E78.5 Hyperlipidemia, unspecified; I10 Essential (primary) hypertension; I48.91 Unspecified atrial fibrillation; Z79.4 Long term (current) use of insulin; Z79.899 Other long term (current) drug therapy
CPT/HCPCS: 36415; 80053; 82553; 83735; 84484; 85025; 85610; 85730; 93005

== ENCOUNTER 2018-03-06 15:09 | Inpatient (IN) | payer MEDICARE ==
[~2018-03-06 15:09] MED LIST: ISOVUE-370 76%-LOCM 1 ML ONE; Iopamidol 370 76% 50 ML VIAL FS ONE
[2018-03-06 16:38] LABS: Hemoglobin 11.5 g/dL (12.0-16.0); Mean Corpuscular HGB CONC 32.7 g/dL (32.0-36.0); Mean Corpuscular Hemoglobin 27.2 pg (27.0-31.0); Mean Corpuscular Volume 83.1 fL (78.0-98.0); Mean Platelet Volume 7.7 fL (7.4-10.4); Platelet Count 218 thou/uL (130-400); RBC Distribution Width 18.9 % (11.5-14.5); Red Blood Cell (RBC) Count 4.23 mill/uL (4.20-5.40); White Blood Cell (WBC) Count 20.6 thou/uL (4.8-10.8)
[2018-03-06 16:48] LABS: Bilirubin Negative (Negative); Blood, Urine Moderate (Negative); Clarity CLOUDY (Clear); Glucose, Urine (Dipstick) Negative (Negative); Leukocyte Large (Negative); Nitrite Negative (Negative); Protein, Urine (Dipstick) Trace mg/dL (Neg-Trace); Specific Gravity, Urine 1.015 (1.002-1.036); Urobilinogen 0.2 mg/dL (0.2-1.0); pH, Urine 5.5 (5.0-9.0)
[2018-03-06 16:52] LABS: Bacteria/HPF None Seen HPF (None Seen); Hyaline Casts/LPF 7-10 HYALINE CAST LPF (0-3 Hyaline)
[2018-03-06 16:55] LABS: Pathc Cast-AUWi Flag 2.61 (0-2.49); Yeast-AUWi Flag 172.1 (0-25.0)
[2018-03-06 16:57] LABS: ALT (SGPT) 35 U/L (8-55); AST (SGOT) 58 U/L (5-34); Albumin 2.8 g/dL (3.4-4.8); Alkaline Phosphatase 98 U/L (40-150); Anion Gap 18 mmol/L (10-20); BUN (Urea Nitrogen) 123 mg/dL (9.8-20.1); Bilirubin, Total 0.7 mg/dL (0.2-1.2); Calc. Creatinine Clearance 0 mL/min (70-130); Calcium 9.4 mg/dL (7.8-10.44); Carbon Dioxide 25 mmol/L (23-31); Chloride 91 mmol/L (98-107); Estimated GFR-MDRD 15; Globulin 3.6 g/dL (2.4-3.5); Glucose 159 mg/dL (83-110); Lipase 7 U/L (8-78); Potassium 5.1 mmol/L (3.5-5.1); Protein, Total 6.4 g/dL (6.0-8.3); Sodium 129 mmol/L (136-145)
[2018-03-06 16:59] LABS: CKMB 1.6 ng/mL (0-6.6); Troponin I 0.014 ng/mL (< 0.028)
[2018-03-06 17:05] LABS: Anisocytosis SLIGHT = 6-15 cells (100X) (0-5/hpf); Lymphocytes 4 % (21-51); MDiff Complete? YES; Monocytes 3 % (0-10); Neutrophil 93 % (42-75); PLT Morphology Comment Appears Adequate
[2018-03-06 17:09] LABS: Manual Microscopic Reviewed? No Path Casts Seen; Yeast-All Forms None Seen HPF (None Seen)
[2018-03-06] MEDS ORDERED: Piperacillin/Tazobactam 4.5 GM VIAL ONE (17:40)
[2018-03-06] MEDS ORDERED: Fentanyl 100 MCG/2 ML VIAL ONE (17:40)
[2018-03-06] MEDS ORDERED: Ondansetron ODT 4 MG TAB ONE (17:42)
[2018-03-06] MEDS ORDERED: metroNIDAZOLE 500 MG/100 ML BAG ONE (17:42)
--- NOTE | 2018-03-06 18:27 | CT ---
CT OF THE ABDOMEN AND PELVIS WITH CONTRAST 03/06/18 COMPARISON: 01/11/18, CTA of the chest 12/07/16. HISTORY: Right lower quadrant abdominal pain and hypotension. TECHNIQUE: Multiple contiguous axial images were obtained in a CT of the abdomen and pelvis with contrast. Coron al reformats were performed. FINDINGS: There is contrast in the gallbladder likely from prior contrast examination. There are hypodensities in the liver. The largest is seen in the left lobe measuring 3.1 cm in size. These were not seen on the CTA from 12/07/16. These are difficult to visualize on the prior noncontras t CT from 01/11/18, but are grossly stable compared to that examination. An exophytic hyperdensity emanating from the right kidney likely represents a hyperdense cyst. There are nonspecific calcifications in a posterior calyx within the right kidney. No left renal calcificat ions are seen. The adrenal glands, spleen, and pancreas are unremarkable. Moderate stool is seen throughout the colon. There is scattered diverticula in the colon. There is a collection in the pelvis which is not confined to bowel loops containing air. This measures approxima tely 10.2 cm in width and 1.5 cm in width and could be a contained abscess. Minimal stranding change is seen surrounding this collection of air. This is immediately on top of the urinary bladder which i s decompressed by a Mejia catheter. The small bowel is normal in caliber without significant distenti on. Degenerative changes are seen in the spine. The sacroiliac joints have fused. Atelectasis is seen in both lung bases. There is a small left pleural effusion. IMPRESSION: 1. There appears to be an air fluid collection in the pelvis just above the urinary bladder whic h is decompressed by Mejia catheter. This most likely represents an abscess from a perforated diverti culum in the colon. 2. There are hypodensities in the liver which are stable compared to the prior examination and n onspecific. These could represent abscesses or metastatic lesions. These were not seen on the prior C TA of the chest from 2016. 3. Nonobstructing right renal calcification. Dr. Hutchins notified of the findings at 5:01 p.m. on 03/06/18. Code CR POS: [facility]
[2018-03-06] MEDS ORDERED: Sodium Chloride 0.9% 1,000 ML IV SCH (20:00)
--- NOTE | 2018-03-06 20:15 | CT ---
CT ABDOMEN NONCONTRAST CT PELVIS NONCONTRAST DATE: 03/06/18 TIME: 7:16 p.m. HISTORY: General surgeon Dr. Paulo Gar asked for abscess drainage in the pelvis. The CT with contrast of 03/06/18, 4:45 p.m. was reviewed. The patient reportedly had 1700 mL of urine drained via the Mejia ca theter earlier today prior to the earlier CT. TECHNIQUE: 500 mL of dilute iodinated contrast (1 part Isovue to 5 parts normal saline) infused into the Mejia c atheter. No IV contrast injected. CT of entire abdomen and pelvis. FINDINGS: What was reported as an abscess on the prior report, completely fills with the infused iodinated cont rast (except for a small pocket of nondependent air) on the current CT. There is no extravasation. Th ere is no extension of contrast into any of the bowel loops. On the CT of 4:45 p.m., it is noted that in addition to moderate amount of gas and fluid in this urin alvin bladder, that the bladder noe are diffusely thickened and that there are right processes of the urinary bladder that extends superiorly and anteriorly. This is presumed to be due to the fact that the bladder was so severely distended prior to the scan. Large volume of stool throughout the colon, especially the rectum which is expanded by the stool. Fat containing left lower quadrant ventral hernia (without bowel loops) through a broad, 10.5 x 6 cm def ect in the left lower quadrant abdominal wall. Very severe diffuse osteopenia (which could result in nondetection of fractures). Air space densities and small pleural effusions at the posterior bases of bilateral lower lobes, left greater than right. Vicarious excretion of injected iodinated contrast material in the gallbladder. An approximately 1.5 x 1.5 cm faint, subtle, hypodense lesion in hepatic segment 7 of the right lobe of the liver. A similar appearing approximately 2 x 2 cm lesion at the dome of the liver, either hepa tic segment 8 or 4A. An approximately 3 x 3.5 cm such lesion in the left lobe of the liver in hepatic segment 2. These are highly suspicious for hepatic metastases. Atrophic pancreas. Atherosclerotic ca lcification without aneurysm involving abdominal aorta and iliac arteries. Some of the small bowel lo ops are borderline dilated, while others are collapsed. No pneumoperitoneum or ascites. There is mild dilation of the bilateral renal collecting systems, which now have excreted iodinated contrast from the injection of 4:45 p.m. IMPRESSION: 1. The abnormal fluid collection mentioned on the report of 4:[address] earlier today, actually represents the urinary bladder. There is no intra-abdominal or intrapelvic abscess. 2. At least three lesions in the liver, high suspicious for hepatic metastases. 3. Bilateral lower lobe consolidations: atelectasis versus pneumonia, with adjacent small pleura l effusions. 4. Fat containing left lower quadrant ventral hernia. 5. Constipation. 6. Vicarious excretion of IV contrast media into gallbladder. 7. Severe osteopenia/osteoporosis. Code CR POS: [facility]
[2018-03-06] MEDS: Piperacillin/Tazobactam 4.5 GM in Sodium Chloride 0.9% 100 ML IVPB SCH (23:44)
[2018-03-07] MEDS ORDERED: Sodium Chloride 0.9% 1,000 ML IV SCH ×2 (00:41→18:30)
[2018-03-07] MEDS ORDERED: Dextrose 50% Abboject 50 ML SYRINGE SLOW IVP PRN (00:43)
[2018-03-07] MEDS ORDERED: Dextrose 5% in Water 1,000 ML IV PRN (00:43)
[2018-03-07] MEDS ORDERED: MENTHOL TOP PRN (01:30)
[2018-03-07] MEDS: metroNIDAZOLE 500 MG in Premix Bag 1 BAG IVPB SCH ×3 (02:06→18:21)
[2018-03-07] MEDS: Piperacillin/Tazobactam 4.5 GM in Sodium Chloride 0.9% 100 ML IVPB SCH ×4 (04:59→23:26)
[2018-03-07] MEDS: Levothyroxine Sodium 50 MCG TAB PO SCH (05:02)
--- NOTE | 2018-03-07 06:09 | HP ---
PRIMARY CARE DOCTOR: Doctor in the retirement. CHIEF COMPLAINT: Change in mental status and abdominal pain. CODE STATUS: As of now is FULL CODE, has not been verified any other status. TIME OF EVALUATION: 2199. HISTORY OF PRESENT ILLNESS: This is an 88-year-old female patient with past medical history of dementia, retirement resident, was sent to the hospital because the patient was having right lower quadrant abdominal pain, also associated with failure to thrive, the pain was reported as severe, sudden onset since the previous night, also associated with change in mental status. REVIEW OF SYSTEMS: Unable to obtain. The patient is not cooperative to interview. She is sleeping. PAST MEDICAL HISTORY: Diabetes, hypothyroidism, hyperlipidemia, hypertension, GERD. PAST SURGICAL HISTORY: Hysterectomy, right knee surgery. PSYCHIATRIC HISTORY: No previous psychiatric history. SOCIAL HISTORY: No alcohol, no drugs, no smoking. ALLERGIES: METFORMIN. REPORTED MEDICATION: Aspirin 325, cholecalciferol 2000 mg, carvedilol 6.25 mg b.i.d., levothyroxine 50 mcg once a day, torsemide 30 mg once a day, Coenzyme Q10 one tablet orally once a day, lisinopril 5 mg orally once a day, Novolin for sliding scale, Keflex 500 mg 2 times a day, amiodarone 200 mg once a day. FAMILY HISTORY: Unable to obtain. PHYSICAL EXAMINATION: VITAL SIGNS: Blood pressure 119/77, heart rate 60, respiratory rate was 17, temperature 98.2. Occasionally, the patient has had low blood pressure with systolic in the 70s. GENERAL: The patient is lethargic, not in any acute distress. HEENT: Eyes, normal conjunctivae. Moist oral mucosa, anicteric. NECK: No JVD. RESPIRATORY: Bilateral air entry. No rales, no wheezing. Symmetric expansion. CARDIOVASCULAR: Moderate rhythm. No murmurs, no gallop, no edema. ABDOMEN: Soft, normal bowel sounds. MUSCULOSKELETAL: Baseline range of motion and strength, no tenderness. SKIN: Warm and intact. No pallor, no rash, no redness. NEUROLOGIC: Baseline sensory. No evidence of any new focal weakness. PSYCHIATRIC: Does have some change in mental status reported. LABORATORY DATA: Reviewed. The patient has white count 20.6, hemoglobin 11.5, hematocrit 35.2, platelet count 218. Sodium 129, potassium 5.1, chloride 91, carbon dioxide 25, anion gap 18, BUN 123, creatinine 3.0, glucose 159, lactic acid 1.2, AST 58, albumin 2.8. Rest of LFTs are negative. Urine was done. The patient has white count in the urine of 50, too numerous to count, also some rbc's 11-20. Abdominal pelvic CT. The patient has 2 CTs done given confusion regarding possible intra-abdominal abscess. The impression of the last one was the abdominal fluid collection mentioned on the report of 4:[address] earlier today actually represent the urinary bladder. There is no intra -abdominal or intrapelvic abscess of the liver, high suspicion for hepatic metastasis, bilateral lobar consolidation, atelectasis versus pneumonia with adjacent small pleural effusion, fat containing left lower quadrant ventral hernia, constipation. IV contrast immediately into gallbladder, severe osteopenia/osteoporosis. ASSESSMENT AND PLAN: 1. Acute encephalopathy, likely secondary to uremia, also could be secondary to urinary tract infection. The patient will need supportive care as inpatient , and this places her at high risk complication. 2. Urinary tract infection. The patient has hematuria and white counts in the urine, we will do cultures, treat with antibiotics. I will follow, we will adjust the treatment as needed. 3. Urinary retention. The patient needed Mejia catheter, could be related to urinary tract infection, we will treat infection, we will monitor. 4. Acute kidney injury with very elevated creatinine and BUN, this could be due to postobstructive renal failure, 1700 mL of urine were removed with a Mejia catheter placement. Possible sepsis, the patient presented with leukocytosis of 20, also tachypnea more than 20, source is urinary tract infection, we will treat underlying condition, cultures to be followed, adjust treatment as needed. The patient will need hydration. 5. Hyponatremia. Sodium 129, this is moderate, the patient receiving IV fluid , we will monitor, no need for any other acute intervention at this point. 6. Uncontrolled diabetes, blood sugar 159, reconciled medications, sliding scale for optimal control. 7. Deep venous thrombosis prophylaxis. MTDD
[2018-03-07] MEDS: Carvedilol 6.25 MG TAB PO SCH ×2 (08:46→18:16)
[2018-03-07] MEDS: Acetaminophen ER (8hr) 650 MG TAB PO SCH ×2 (08:47→20:40)
[2018-03-07] MEDS: Amiodarone 200 MG TAB PO SCH (08:49)
[2018-03-07] MEDS ORDERED: Non-Formulary Item 1 EACH (Arginine/Ascorbate Sod/Vite Ac [Arginaid Powder] 1 PACKET) PO SCH (09:00)
[2018-03-07] MEDS ORDERED: Torsemide 20 MG TAB PO SCH (09:00)
[2018-03-07] MEDS ORDERED: Lisinopril 5 MG TAB PO SCH (09:00)
[2018-03-07 11:50] LABS: #Eosinphils 0.1 thou/uL (0.0-0.7); #Lymphocytes 0.4 thou/uL (1.20-3.40); #Monocytes 0.6 thou/uL (0.11-0.59); #Neutrophils 14.3 thou/uL (1.40-6.50); %Eosinophils 0.4 % (0.0-10.0); %Lymphocytes 2.4 % (21.0-51.0); %Neutrophils 93.1 % (42.0-75.0); Hemoglobin 9.8 g/dL (12.0-16.0); Mean Corpuscular HGB CONC 32.4 g/dL (32.0-36.0); Mean Corpuscular Hemoglobin 27.1 pg (27.0-31.0); Mean Corpuscular Volume 83.7 fL (78.0-98.0); Mean Platelet Volume 7.2 fL (7.4-10.4); Platelet Count 198 thou/uL (130-400); RBC Distribution Width 18.8 % (11.5-14.5); Red Blood Cell (RBC) Count 3.63 mill/uL (4.20-5.40); White Blood Cell (WBC) Count 15.4 thou/uL (4.8-10.8)
[2018-03-07] MEDS: Multivitamin W/ Minerals 1 TAB PO SCH (12:07)
[2018-03-07] MEDS: Ferrous Sulfate 325 MG TAB PO SCH ×2 (12:08→18:16)
[2018-03-07] MEDS: Ubidecarenone 50 MG CAP PO SCH (12:08)
[2018-03-07] MEDS: Ascorbic Acid 500 mg Chewable Tablet PO SCH ×2 (12:08→20:40)
[2018-03-07] MEDS: Aspirin 325 MG TAB PO SCH (12:08)
[2018-03-07 12:09] LABS: Anion Gap 18 mmol/L (10-20); BUN (Urea Nitrogen) 120 mg/dL (9.8-20.1); Calc. Creatinine Clearance 25 mL/min (70-130); Calcium 8.7 mg/dL (7.8-10.44); Carbon Dioxide 25 mmol/L (23-31); Chloride 99 mmol/L (98-107); Estimated GFR-MDRD 20; Glucose 133 mg/dL (83-110); Magnesium 2.2 mg/dL (1.6-2.6); Potassium 4.6 mmol/L (3.5-5.1); Sodium 137 mmol/L (136-145)
[2018-03-07] MEDS: Polyethylene Glycol 3350 17 GM Packet PO SCH ×2 (12:09→20:41)
--- NOTE | 2018-03-07 13:26 | PDOC.PN ---
- Subjective Encounter Start Date: 03/07/18 Encounter Start Time: 11:45 -: old records requested/rev Pt seen adn examined, chart reviewed in its entirety, this is my fist visit with this patient Pt much more awake and alert today, no f/C, no n/V/d/C. wants water. NPO at present due to AMS No acute overnight events, family updated all systems reviewed and neg x as above - Objective MAR Reviewed: Yes Vital Signs & Weight: Vital Signs (12 hours) Temp Pulse Resp BP Pulse Ox 03/07/18 12:00 97.9 F 53 L 18 112/59 L 98 03/07/18 08:00 97.5 F L 52 L 17 117/55 L 99 03/07/18 03:38 97.5 F L 54 L 16 90/42 L 99 Weight Admit Weight 202 lb 12.8 oz Weight 203 lb 8 oz I&O: 03/06/18 03/07/18 03/08/18 06:59 06:59 06:59 Intake Total 1001 Output Total 600 Balance 401 Result Diagrams: 03/07/18 11:42 03/07/18 11:42 Additional Labs: Accuchecks 03/07/18 05:43 POC Glucose 156 H Radiology Reviewed by me: Yes EKG Reviewed by me: Yes Phys Exam - Physical Examination Constitutional: NAD HEENT: PERRLA, moist MMs, sclera anicteric, oral pharynx no lesions Neck: no nodes, no JVD, supple, full ROM Respiratory: no wheezing, no rales, no rhonchi, clear to auscultation bilateral Cardiovascular: RRR, no significant murmur, no rub Gastrointestinal: soft, non-tender, no distention, positive bowel sounds Musculoskeletal: pulses present, edema present Neurological: non-focal, normal sensation, moves all 4 limbs Lymphatic: no nodes Psychiatric: normal affect, A&O x 3 Skin: no rash, normal turgor, cap refill <2 seconds Dx/Plan (1) Severe sepsis Code(s): A41.9 - SEPSIS, UNSPECIFIED ORGANISM; R65.20 - SEVERE SEPSIS WITHOUT SEPTIC SHOCK Status: Acute Comment: due to UTI, both presen ton admit, Cr 3.01, elevated WBC, preseumed bacterial UTI. CCM with abx, hydrate as needed (2) Acute metabolic encephalopathy Code(s): G93.41 - METABOLIC ENCEPHALOPATHY Status: Resolved Comment: about at baseline (3) UTI (urinary tract infection) Status: Acute Qualifiers: Urinary tract infection type: acute cystitis Hematuria presence: without hematuria Qualified Code(s): N30.00 - Acute cystitis without hematuria (4) Urinary retention Code(s): R33.9 - RETENTION OF URINE, UNSPECIFIED Status: Acute (5) ANUPAM (acute kidney injury) Code(s): N17.9 - ACUTE KIDNEY FAILURE, UNSPECIFIED Status: Acute Comment: Cr normal to 3.01. repeat pending (6) Physical deconditioning Code(s): R53.81 - OTHER MALAISE Status: Acute Comment: PT/OT eval (7) Diabetes Code(s): E11.9 - TYPE 2 DIABETES MELLITUS WITHOUT COMPLICATIONS Status: Chronic Qualifiers: Diabetes mellitus type: type 2 Diabetes mellitus terminal clerk insulin use: without chcf use Diabetes mellitus complication status: without complication Qualified Code(s): E11.9 - Type 2 diabetes mellitus without complications (8) HTN (hypertension) Code(s): I10 - ESSENTIAL (PRIMARY) HYPERTENSION Status: Chronic Qualifiers: Hypertension type: essential hypertension Qualified Code(s): I10 - Essential (primary) hypertension (9) Paroxysmal A-fib Code(s): I48.0 - PAROXYSMAL ATRIAL FIBRILLATION Status: Chronic - Plan cont current plan of care, plan discussed w/ family, continue antibiotics, PT/OT , out of bed/ambulate * .
[2018-03-07] MEDS: Zinc Sulfate 220 MG CAP PO SCH (15:23)
[2018-03-07] MEDS: Lactinex Tablet PO SCH (15:23)
[2018-03-07] MEDS: Sodium Chloride 0.9% 1,000 ML IV SCH (18:16)
--- NOTE | 2018-03-08 01:25 | CON ---
DATE OF CONSULTATION: 03/07/2018 REFERRING PHYSICIAN: Dr. Neal English, [facility]. REASON FOR CONSULTATION: Abdominal pain, anemia, abnormal CAT scan of the abdomen. HISTORY OF PRESENT ILLNESS: Ms. Delia Chan is a very pleasant 88-year-old female who w as transferred from the [place] [facility] because of abdominal pain, altered mental status, etc. The fabrizio ent was found to have evidence of dehydration with markedly elevated BUN. She has had normal kidney function before. She has been back and forth this hospital for different reasons. She was here on 12/2017 with some sepsis and also atrial fibrillation with fast ventricular rate. She was seen by Dr. Jacob Perera at this time. She had a normal BUN and creatinine at that time. Now, the admitting chem panel shows a BUN of 123, creatinine is 3.10, sodium is 129. It appears she is severely dehydr ated. The patient is awake, alert, and communicative. However, there is history of dementia. Some of the history is obtained by going over the admitting history and physical and also by previous admi ssion. There is no family available. At the present time, she appears very comfortable and she says she is very thirsty and she wanted to drink or eat something. When she came to the ER, she had an a bdominal CAT scan done with noncontrast and this was read as possibly an abscess. She had a repeat C AT scan of abdomen done late yesterday and the CAT scan findings report markedly distended urinary bl adder. The patient had a Mejia catheter and it drained more than 700 mL of urine. At the present ti me, she appears very comfortable in no distress. She still has mild abdominal pain over the lower ab domen. There is no nausea, no vomiting. She has had some stool today and the stool appears dark col or than usual, but she is on iron supplement. The patient was hospitalized in 12/2017 and was seen b antoinette Lara for anemia. At that time, no endoscopic studies were performed. The CBC today is actually fairly good and that could be because of the dehydration. The CBC on 03/02/2018 showed WBC 9100, hemoglobin 11.7, hematocrit 36.2. Yesterday CBC showed WBC 20,600, hemoglobin 11.5, hematocri t 34.3, MCV 83.1. The stool for occult blood is positive at this time and she had the same positive stool in 12/2017. She has no relevant history. ALLERGIES: None. MEDICAL ILLNESSES: 1. Paroxysmal atrial fibrillation, heart failure. 2. Hypertension. 3. Hyperlipidemia. 4. Diabetes. 5. Chronic lower extremity edema. 6. Anemia. SURGERIES: 1. Status post right knee replacement. 2. Hysterectomy. 3. She also has some scarring over the left knee and surgery what was done is not clear. MEDICATIONS: List reviewed which include Coreg, vitamin D3, vitamin C, amiodarone, , Tylenol N o. 3, levothyroxine, metronidazole, pantoprazole, , MiraLax. REVIEW OF SYSTEMS: Central nervous system: Denies any headache, any dizziness, any seizure disorder . Respiratory: No history of chronic cough, hemoptysis. Cardiovascular: No chest pain, no palpita tion, no dyspnea, orthopnea. Gastrointestinal: Abdominal pain, had nausea and vomiting couple of da ys ago. No nausea or vomiting today. Genitourinary: No dysuria, hematuria or frequent urination. Other system review unremarkable. PHYSICAL EXAMINATION: GENERAL: Patient is an obese elderly white female, appears very comfortable. She is awake and alert and communicative. However, she is not a good historian. VITAL SIGNS: Afebrile, pulse is 52, blood pressure 117/55. HEENT: Conjunctivae clear. NECK: Supple. CARDIOVASCULAR: First and second heart sounds were normal. LUNGS: Clear to auscultation. ABDOMEN: Soft and pendulous. Abdomen is nondistended. She is mildly tender over the left lower katie drant, right lower quadrant, and also suprapubic area. There is no rebound or guarding. No organome lorenzo or masses. EXTREMITIES: Reveal edema. LABORATORY DATA: Yesterday WBC 20,600, hemoglobin is 11.5, hematocrit 32.3, MCV 85.1, platelet count 218,000, polymorphs 93, lymphocytes 4. Chemistries show evidence of dehydration with BUN of 123, cr eatinine 3.01, glucose is 159. Sodium 129, potassium 5.1, chloride 91, calcium 9.4, bilirubin 0.7, A ST 58, ALT 35, alkaline phosphatase is 98, albumin 2.8, globulin 3.6. CLINICAL IMPRESSION: An 88-year-old female hospitalized with abdominal pain, altered menta l status. On admission, she was found to have severe volume depletion with a BUN of 123. She had no rmal kidney function in 12/2017. An abdominal CAT scan showing what appears to be abscess initially, but repeat CAT scan shows the patient to have a distended urinary bladder. She had a Mejia catheter and she drained about 700 mL of urine. 1. Occult GI bleeding. She had the same positive guaiac in 12/2017 and was seen by Dr. Kapil Lara . At that time, no endoscopic studies done. 2. Severe volume depletion, needs rehydration. 3. Atrial fibrillation, rate controlled at the present time. 4. Hypertension. 5. Diabetes. 6. Hyperlipidemia. 7. Hypothyroidism. RECOMMENDATIONS: 1. Rehydration. 2. Follow up H&H. 3. Discontinue n.p.o. for clear liquid diet. Dr. Lara will assume care from Friday and we will dec ira what is necessary. However, in the meantime, I would rehydrate and bring the kidney function maddi k to normal before any GI workup can be done.
[2018-03-08] MEDS: metroNIDAZOLE 500 MG in Premix Bag 1 BAG IVPB SCH ×2 (01:45→13:10)
[2018-03-08] MEDS: Piperacillin/Tazobactam 4.5 GM in Sodium Chloride 0.9% 100 ML IVPB SCH ×3 (05:14→18:10)
[2018-03-08] MEDS: Levothyroxine Sodium 50 MCG TAB PO SCH (05:14)
[2018-03-08] MEDS: Sodium Chloride 0.9% 1,000 ML IV SCH ×2 (05:15→18:10)
[2018-03-08 06:47] LABS: Anion Gap 17 mmol/L (10-20); BUN (Urea Nitrogen) 108 mg/dL (9.8-20.1); Calc. Creatinine Clearance 29 mL/min (70-130); Calcium 7.9 mg/dL (7.8-10.44); Carbon Dioxide 19 mmol/L (23-31); Chloride 102 mmol/L (98-107); Estimated GFR-MDRD 23; Glucose 104 mg/dL (83-110); Potassium 4.3 mmol/L (3.5-5.1); Sodium 134 mmol/L (136-145)
[2018-03-08 07:34] LABS: Band 4 % (5-11); Hemoglobin 8.5 g/dL (12.0-16.0); Lymphocytes 3 % (21-51); MDiff Complete? YES; Mean Corpuscular HGB CONC 31.7 g/dL (32.0-36.0); Mean Corpuscular Hemoglobin 27.1 pg (27.0-31.0); Mean Corpuscular Volume 85.3 fL (78.0-98.0); Mean Platelet Volume 7.2 fL (7.4-10.4); Monocytes 6 % (0-10); Neutrophil 87 % (42-75); Platelet Count 206 thou/uL (130-400); RBC Distribution Width 18.8 % (11.5-14.5); Red Blood Cell (RBC) Count 3.15 mill/uL (4.20-5.40); White Blood Cell (WBC) Count 10.3 thou/uL (4.8-10.8)
[2018-03-08] MEDS ORDERED: EPINEPHrine 1 MG/ML AMP ONE (09:03)
[2018-03-08] MEDS ORDERED: EPINEPHrine 1 MG/10 ML Abboject SYRINGE ONE ×3 (09:03→16:22)
[2018-03-08] MEDS ORDERED: DOPamine 400 MG/D5W 250 ML 250 ML ONE ×2 (09:08→15:14)
[2018-03-08] MEDS ORDERED: EPINEPHrine 1 MG, Admixture Fee 1 EACH in Dextrose 5% in Water 250 ML IVPB SCH (10:00)
[2018-03-08] MEDS ORDERED: Atropine Sulfate 1 mg/10 ml Syringe ONE (10:01)
[2018-03-08] MEDS ORDERED: Lidocaine 1% (PF) 30 ML VIAL ONE (10:08)
[2018-03-08] MEDS ORDERED: Fentanyl 100 MCG/2 ML VIAL ONE (10:52)
--- NOTE | 2018-03-08 11:15 | RAD ---
SINGLE VIEW OF THE CHEST: COMPARISON: 01/09/18. HISTORY: Endotracheal tube placement. FINDINGS: A single view of the chest shows a normal-size cardiomediastinal silhouette. An endotracheal tube is seen with its tip between the clavicles. An NG tube courses off the inferior aspect of the film, li kevin within the stomach. A right IJ central venous catheter is seen with its tip in the superior yaritza a cava. There appear to be small bilateral pleural effusions. IMPRESSION: 1. Appropriate position of lines and tubes. 2. Bilateral pleural effusions. POS: [facility]
[2018-03-08] MEDS ORDERED: Fentanyl 20 mcg/ml (100 ml CADD) IV PRN (11:29)
--- NOTE | 2018-03-08 12:05 | CON ---
DATE OF CONSULTATION: 03/08/2018 Total critical care time 110 minutes. REASON FOR CONSULTATION: Bradycardia and shock of unknown etiology. PRIMARY DOSIMETRIST: Dr. Jacob Perera. HISTORY OF PRESENT ILLNESS: Ms. Chan is an unfortunate 88-year-old woman who recently came in with abdominal pain. She had a CT scan of the abdomen that was felt to be abnormal. She underwent an EGD this morning. Post-EGD, she came up to the ICU in no distress. She was hypotensive and bradycardic with heart rate at 41 beats per minute. It appeared to be junctional. She was given epinephrine and atropine. She had a limited increase in heart rate with atropine, but did respond to epinephrine, two were given. PAST MEDICAL HISTORY: Paroxysmal atrial fibrillation on anticoagulation therapy , hypertension, hyperlipidemia, diabetes mellitus, anemia. PAST SURGICAL HISTORY: Knee surgery, hysterectomy. REVIEW OF SYSTEMS: Unobtainable. PHYSICAL EXAMINATION: GENERAL: Patient is a pleasant female who is in no acute distress. The patient appears her stated age. She is currently intubated and sedated. VITAL SIGNS: Blood pressure 107/54, pulse 48, temperature 97.4. NEUROLOGIC: The patient is alert and oriented times 3 with no focal neurologic deficits. HEENT: Sclerae without icterus. Mouth has moist mucous membranes with normal pallor. NECK: No JVD. Carotid upstroke brisk. No bruits bilaterally. LUNGS: Clear to auscultation with unlabored respirations. BACK: No scoliosis or kyphosis. CARDIAC: Regular rate and rhythm with normal S1 and S2. No S3 or S4 noted. No significant rubs, murmurs, thrills, or gallops noted throughout the precordium. PMI is not displaced. There is no parasternal heave. ABDOMEN: Soft, nontender, nondistended. No peritoneal signs present. No hepatosplenomegaly. No abnormal striae. EXTREMITIES: 2+ femoral and 2+ dorsalis pedis pulses. No cyanosis, clubbing, or edema. SKIN: No gross abnormalities. PERTINENT LABORATORY DATA: Hemoglobin 8.5, creatinine 2.0. IMPRESSION: 1. Symptomatic bradycardia. 2. Shock of unknown etiology. 3. Abdominal pain. RECOMMENDATIONS: At this point, the ACLS protocol ensued. Patient was given epinephrine IV x2 doses. She did not respond to atropine. Heart rate will increase, but then decrease back down into the 40s. A triple lumen line was placed by Dr. Anjel Piña. At this point, it would seem reasonable to proceed with a temporary pacemaker. We will also place an arterial sheath. I discussed the procedure in full detail with the family. The risks include but not limited to the following: , stroke, GA, cardiac perforation, bleeding , and infection. Given the situation, they certainly agreed to proceed with the above. We will check a CK troponin level. Dr. Perera did state during his last note that a more aggressive cardiac approach was unlikely given her comorbidities. Blood cultures will be drawn. WINNIE
--- NOTE | 2018-03-08 12:14 | OP ---
DATE OF CONSULTATION: 03/08/2018 PROCEDURE: Temporary pacemaker. INDICATION: Symptomatic bradycardia. The patient was brought urgently for a temporary pacemaker. She also underwent arterial line placeme nt. The patient was prepped and draped in the usual sterile fashion. Access obtained in the right femora l artery under ultrasound guidance. A 4 [place] Helenian sheath was placed appropriately. An access then obtained in the right femoral vein successfully. A 6-St Helenian sheath was placed. Tempo rary pacemaker was placed appropriately into the RV apex. Settings were at 5 millivolts and respond appropriately. The patient was transferred to critical care unit in guarded condition.
--- NOTE | 2018-03-08 12:54 | ULT ---
LEFT LOWER EXTREMITY ARTERIAL ULTRASOUND: History Left leg ulcers and cold left leg. Diminished pulse in the left leg. TECHNIQUE: Multiplanar, nelson scale, and color Doppler images were obtained in a left lower extremity arterial ul trasound. Spectral analysis of the Doppler waveforms was performed. FINDINGS: There is a biphasic waveform in the left common femoral artery. A biphasic waveform is seen in the l eft superficial femoral artery. The waveform becomes monophasic at the popliteal artery and remains monophasic throughout the left leg below the knee. The anterior tibial artery could not be visualize d. The dorsalis pedis and posterior tibial arteries could be visualized. No significant increased velocity is seen from one segment to the next to suggest focal atherosclerot ic disease. IMPRESSION: 1. Gradual abnormal waveforms from the proximal to distal leg suggests diffuse nonfocal atherosclero tic disease. 2. Abnormal waveforms in the common femoral artery suggest more proximal atherosclerotic disease. POS: CASSANDRA
[2018-03-08] MEDS: Acetaminophen ER (8hr) 650 MG TAB PO SCH ×2 (13:08→20:34)
[2018-03-08] MEDS: Ascorbic Acid 500 mg Chewable Tablet PO SCH ×2 (13:08→20:35)
[2018-03-08] MEDS: Amiodarone 200 MG TAB PO SCH (13:08)
[2018-03-08] MEDS: Carvedilol 6.25 MG TAB PO SCH (13:08)
[2018-03-08] MEDS: Ferrous Sulfate 325 MG TAB PO SCH ×2 (13:08→13:34)
[2018-03-08] MEDS: Aspirin 325 MG TAB PO SCH (13:08)
[2018-03-08] MEDS: Ubidecarenone 50 MG CAP PO SCH (13:09)
[2018-03-08] MEDS: Zinc Sulfate 220 MG CAP PO SCH (13:09)
[2018-03-08] MEDS: Polyethylene Glycol 3350 17 GM Packet PO SCH ×2 (13:09→20:34)
[2018-03-08] MEDS: Lactinex Tablet PO SCH (13:09)
[2018-03-08] MEDS: Multivitamin W/ Minerals 1 TAB PO SCH (13:09)
[2018-03-08] MEDS ORDERED: Norepinephrine 8 MG/0.9% NS 250 ML IVPB PRN (13:11)
[2018-03-08] MEDS ORDERED: Lacri-Lube Opth Oint 3.5 GM TUBE EA EYE PRN (13:11)
[2018-03-08] MEDS ORDERED: Ventilator Sedation Protocol 1 EACH FS SCH (13:15)
[2018-03-08 13:17] LABS: Troponin I 0.028 ng/mL (< 0.028)
[2018-03-08] MEDS ORDERED: Fentanyl BOLUS 250 ML IVPB PRN (13:19)
[2018-03-08] MEDS ORDERED: Lorazepam 2 MG/ML VIAL SLOW IVP PRN (13:19)
[2018-03-08] MEDS ORDERED: Propofol BOLUS 1,000 MG/100 ML VIAL IV PRN (13:19)
[2018-03-08] MEDS ORDERED: DISCONTINUE PREVIOUS NARCOTIC PAIN MEDICATIONS AND BENZODIAZEPINES FS SCH (13:19)
[2018-03-08 14:12] LABS: Lactic Acid 1.9 mmol/L (0.5-2.2)
[2018-03-08] MEDS: Micafungin 100 MG in Sodium Chloride 0.9% 100 ML IVPB SCH (14:14)
[2018-03-08] MEDS: CHROMIUM PICOLINATE PO SCH (14:16)
[2018-03-08] MEDS: Saw/Vit E/Sod Sel/Lyc/Beta/Pyg [Prostate Health Caplet] PO SCH (14:16)
[2018-03-08] MEDS: ALPHA LIPOIC ACID 200 MG PO SCH (14:17)
[2018-03-08] MEDS: fentaNYL Citrate/PF 2,000 MCG in Sodium Chloride 0.9% 60 ML IV SCH (14:37)
[2018-03-08] MEDS: DOPamine 400 MG/D5W 250 ML 250 ML IVPB SCH ×2 (15:19→20:00)
[2018-03-08 16:02] LABS: Actual Bicarbonate (HCO3a) 16.2 mEq/L (22-28); Base Excess (BEa) -9.9 mEq/L (-2.0 to +3.0); pH, Arterial 7.27 (7.35-7.45)
[2018-03-08 16:03] LABS: Hemoglobin (Hb) 11.7 g/dL (12.0-16.0); Puncture Site RBA
[2018-03-08] MEDS: HumaLOG 300 UNITS/3 ML VIAL SC PRN ×2 (16:20→21:58)
[2018-03-08] MEDS ORDERED: Lidocaine 1% PF 5 ML VIAL ONE (16:22)
[2018-03-08] MEDS ORDERED: ePHEDrine/0.9% NaCl/PF SYRINGE 50 mg/10 ml ONE (16:22)
[2018-03-08] MEDS ORDERED: PROPOFOL 200 MG/20 ML VIAL ONE (16:22)
[2018-03-08] MEDS ORDERED: Glycopyrrolate 0.2 MG/ML 5 ML SYRINGE ONE (16:22)
--- NOTE | 2018-03-08 18:34 | OP ---
DATE OF PROCEDURE: 03/08/2018 OPERATIVE PROCEDURE: Esophagogastroduodenoscopy with biopsy. PREOPERATIVE DIAGNOSES: An 88-year-old female with occult gastrointestinal bleeding, history of dark stool. The dark stool becomes confusing because she is on iron supplement. The patient had similar episodes couple of months ago and was transfused. The patient underwent an esophagogastroduodenoscopy. POSTOPERATIVE DIAGNOSIS: Gastritis over the proximal stomach with a few shallow gastric ulcerations. At the time of endoscopy, no bleeding was seen. PROCEDURE IN DETAIL: The patient was placed on her left lateral position and was given sedation by Anesthesia Department. A Pentax video gastroscope under direct vision was passed down the oropharynx, past the GE junction, into the stomach and subsequently into the descending duodenum. The esophageal mucosa appears normal throughout the stomach. The GE junction, no pathology seen. The fundus and cardia, no pathology seen. Over the proximal gastric body, the patient found to have few shallow ulcerations with patchy areas of mucosal edema and erythema. The lower part of the gastric body, gastric antrum, incisura angularis, no pathology seen. The duodenal bulb, descending duodenum, no pathology seen. Biopsies obtained of the gastric antrum and gastric body. The stomach was decompressed and the scope removed. The patient did have an episode of sinus bradycardia and her pressure dropped down. She was given IV atropine and epinephrine. Please see Anesthesia record for a postoperative event. MTDD
--- NOTE | 2018-03-08 18:37 | CON ---
DATE OF CONSULTATION: 03/08/2018 SERVICE: Pulmonary Medicine. REASON FOR CONSULTATION: Shock. HISTORY OF PRESENT ILLNESS: The patient is an 88-year-old white female. She was in her usual state of health until she presented to the Emergency Department with complaints of abdominal discomfort. They did initial CT of the pelvis, which demonstrated a complicated cystic lesion in the belly that was presumed to be an abscess. They were going to be sent for a percutaneous drainage. That being said, a repeat CT scan was done and they infused contrast into the bladder. It became clear that the issue was actually a bladder. She had no acute abdominal problems. She is being treated for urinary tract infection. An occult blood was abnormal. This prompted an EGD. The EGD was performed, but afterward, she became extremely unstable. She was bradycardic to the 40s and had a junctional rhythm. She was hypotensive. She also had a pale color about her. Instead of bring her back to the floor, she was appropriately escalated to the unit. She was given multiple doses of epinephrine and atropine in order to improve blood pressures. A dopamine drip was initiated while we got a central line. Epinephrine was initiated. Her pulse at times was thready, but she never required any chest compressions. She did have poor respiratory effort. As such, we electively intubated her before emergently bringing her for cardiac catheterization. Currently, she is not able to provide any additional elements of the history. PAST MEDICAL HISTORY: 1. Type 2 diabetes mellitus. 2. Hypothyroidism. 3. Dyslipidemia. 4. Hypertension. 5. Gastroesophageal reflux disease. PAST SURGICAL HISTORY: 1. Hysterectomy. 2. Right knee surgery. 3. Recent EGD. SOCIAL HISTORY: Negative for alcohol, tobacco, or illicit drugs. She comes to us from a nursing facility. FAMILY HISTORY: Noncontributory. ALLERGIES: METFORMIN. MEDICATIONS: List of her inpatient medications were reviewed. All rate control medications have been interrupted. REVIEW OF SYSTEMS: This cannot be obtained as the patient is currently obtunded. PHYSICAL EXAMINATION: VITAL SIGNS: Afebrile. Pulse 40, blood pressure 107/54, respirations 18, saturation 92% on 2 liters nasal cannula. GENERAL: The patient is intubated. NEUROLOGIC: She is still under some influence of sedation. HEENT: Normocephalic, atraumatic. Sclerae white. Conjunctivae pale. Oral and nasal mucosa are dry. No lesions were identified. LUNGS: Decent air entry. There is no prolonged expiratory phase or wheezing identified. HEART: Bradycardic. Regular. ABDOMEN: Soft. Distended. She has tenderness to palpation. No rebound or guarding is present. Bowel sounds are hypoactive. GENITOURINARY: Mejia catheter is now in place. NEUROLOGIC: She is grossly nonfocal. Before intubation, she was able to indicate yes and no appropriately. She was moving all 4 extremities. MUSCULOSKELETAL: No cyanosis or clubbing. There is no pitting in the bilateral lower extremities. SKIN: Tenting is present throughout. LABORATORY DATA: WBC 10.3, hemoglobin 8.5 and down trending. Baseline is likely 10. Platelets 206,000. Creatinine down trending at 2.05, BUN 108 and down trending. Basic metabolic profile is otherwise unremarkable. Magnesium is 2.0. WBC is greater than 50. Her urinalysis is growing yeast species and nonhemolytic streptococcus. Blood cultures are unremarkable as of now. IMAGIN. Chest x-ray demonstrates bilateral pleural effusions. There is an endotracheal tube 4 cm above the sanjuana, and a right IJ central venous catheter at the cavoatrial junction, perhaps in the proximal right atrium. Enteric catheter courses below the level of the diaphragm and outside of the field of view. Minimal cephalization is also identified. 2. CT of the abdomen and pelvis demonstrates no acute intraabdominal process. ASSESSMENT: 1. Acute hypoxic respiratory failure. 2. Metabolic encephalopathy. 3. Junctional rhythm. 4. Cardiogenic shock. 5. Acute blood loss anemia, possible. 6. Urinary tract infection. 7. Acute kidney injury. DISCUSSION AND PLAN: We will give the patient a liter of fluid and a couple units of blood. The junctional rhythm was just identified. Cardiology consultation was placed in an emergent way. We intubated her and lined her in short order. She is now moving down to the senior label specialist. We were able to stabilize her at least temporarily with an epinephrine drip. She is on mechanical ventilation and currently in critical condition. There is a good possibility that she will have multiple injuries that come about because of her low-perfusion state in the periprocedure period. Family will be updated. Pulmonary Critical Care will continue to follow along. CRITICAL CARE TIME: 120 minutes unbundled from procedures. [facility] HOSPITALElyssa
[2018-03-08] MEDS: EPINEPHrine 4 MG in Dextrose 5% in Water 250 ML IV SCH (20:36)
[2018-03-09] MEDS: Piperacillin/Tazobactam 4.5 GM in Sodium Chloride 0.9% 100 ML IVPB SCH ×2 (00:01→05:44)
[2018-03-09] MEDS: DOPamine 400 MG/D5W 250 ML 250 ML IVPB SCH ×4 (00:51→18:00)
--- NOTE | 2018-03-09 02:35 | OP ---
DATE OF SERVICE: 03/08/2018 SERVICE: Pulmonary Medicine. PROCEDURE: 1. Right-sided triple lumen IJ central venous catheter placement under ultrasound guidance. 2. Emergent endotracheal intubation. CONSENT: This was implied secondary to emergent situation. STAFF PHYSICIAN: Anjel Piañ M.D. MEDICATIONS USED: Etomidate 20 mg IV push x1 for intubation. PREOPERATIVE DIAGNOSIS: Cardiogenic shock. POSTPROCEDURE DIAGNOSIS: Cardiogenic shock. DESCRIPTION OF PROCEDURE: Vital sign monitoring was accomplished by noninvasive hemodynamic monitori ng, pulse oximetry, and telemetry. A timeout was performed, and the patient was positively identifie d using name and date of . The procedure site was marked. The patient was placed in the supine position and the right neck was prepped and draped in sterile fashion. The course of the IJ vein wa s mapped with ultrasound. The cannulation needle was placed in the IJ under direct ultrasound observ ation with return of dark red, nonpulsatile blood on the first attempt. A J-shaped guidewire was thr eaded through the cannulation needle without difficulty. A small incision was made. The dilator and triple-lumen central venous catheter were serially threaded over the guidewire. The catheter was patel tured to the skin at 18 cm with 3-0 silk sutures x2. All 3 ports withdrew and flushed without diffic ulty. A sterile dressing was applied and the procedure was terminated. The patient was then preoxygenated with bag valve mask ventilation and maintained with saturations of 100%. Following induction of anesthesia, a GlideScope was inserted into the mouth offering clear id entification of the posterior oropharynx and laryngeal structures with a grade 1 view. An endotrache al tube was visualized passing between the vocal cords. Placement was confirmed by condensation in t he endotracheal tube, colorimetric capnography, and biaxillary chest auscultation. The endotracheal tube was secured at 24 cm, measured at the teeth. The patient was placed on mechanical ventilation w ith good return of volumes. Post-procedure x-ray revealed good location for the endotracheal tube and IJ. ESTIMATED BLOOD LOSS: 5 mL. COMPLICATIONS: None.
[2018-03-09] MEDS: Levothyroxine Sodium 50 MCG TAB PO SCH (04:42)
[2018-03-09] MEDS: HumaLOG 300 UNITS/3 ML VIAL SC PRN ×4 (04:43→21:41)
[2018-03-09 05:21] LABS: #Lymphocytes 0.2 thou/uL (1.20-3.40); #Monocytes 0.1 thou/uL (0.11-0.59); #Neutrophils 8.8 thou/uL (1.40-6.50); %Basophils 0.1 % (0.0-1.0); %Eosinophils 0.2 % (0.0-10.0); %Lymphocytes 1.9 % (21.0-51.0); %Neutrophils 96.8 % (42.0-75.0); Hemoglobin 11.4 g/dL (12.0-16.0); Mean Corpuscular HGB CONC 32.7 g/dL (32.0-36.0); Mean Corpuscular Hemoglobin 28.2 pg (27.0-31.0); Mean Corpuscular Volume 86.1 fL (78.0-98.0); Mean Platelet Volume 6.8 fL (7.4-10.4); Platelet Count 295 thou/uL (130-400); RBC Distribution Width 18.6 % (11.5-14.5); Red Blood Cell (RBC) Count 4.03 mill/uL (4.20-5.40); White Blood Cell (WBC) Count 9.1 thou/uL (4.8-10.8)
[2018-03-09 05:27] LABS: Anion Gap 18 mmol/L (10-20); BUN (Urea Nitrogen) 108 mg/dL (9.8-20.1); Calc. Creatinine Clearance 24 mL/min (70-130); Calcium 7.7 mg/dL (7.8-10.44); Carbon Dioxide 17 mmol/L (23-31); Chloride 101 mmol/L (98-107); Estimated GFR-MDRD 19; Glucose 305 mg/dL (83-110); Magnesium 1.8 mg/dL (1.6-2.6); Phosphorus 5.5 mg/dL (2.3-4.7); Potassium 4.7 mmol/L (3.5-5.1); Sodium 131 mmol/L (136-145)
--- NOTE | 2018-03-09 07:48 | PRG ---
DATE OF SERVICE: 03/09/2018 SERVICE: Pulmonary Medicine INTERVAL HISTORY: The patient apparently has been following some commands. That being said, she is currently under the influence of a little too much sedation. As such, we are going to work on backin g off of that, a little bit. She cannot provide any additional elements of the history. There were no events overnight, but she did not make any urine. Otherwise, we have been weaning off of the epin ephrine, but whenever we come to low, she becomes a little bit more bradycardic and drops pressures. She is back into a junctional rhythm. As such, I am not going to be too terribly aggressive about w eaning the epinephrine at this point. We just like to support the kidneys with blood pressure at thi s time. PHYSICAL EXAMINATION: VITAL SIGNS: Afebrile currently with a T-max overnight of 100.6, heart rate 49, blood pressure 125/5 5, respirations 18, saturation 96% on room air. GENERAL: The patient is intubated and sedated. HEENT: Normocephalic, atraumatic. Sclerae are white, conjunctivae pink. Oral mucosa is moist witho ut lesions. Pupils equal, round, and reactive to light. LUNGS: Decent air entry. There is no prolonged expiratory phase or wheezing present. HEART: Normal rate, regular. ABDOMEN: Soft, nontender, nondistended. Bowel sounds are positive. MUSCULOSKELETAL: No cyanosis or clubbing. No pitting in the bilateral lower extremities. NEUROLOGIC: Grossly nonfocal. LABORATORY DATA: WBC 9.1, hemoglobin 11.4, platelets 295,000. Creatinine 2.43 and up trending, BUN 108, stable. Bicarbonate 17. This is down trending. Basic metabolic profile is otherwise unremarka ble. Magnesium 1.8. ASSESSMENT: 1. Acute hypoxic respiratory failure. 2. Metabolic encephalopathy. 3. Cardiogenic shock. 4. Junctional dysrhythmia. 5. Urinary tract infection. 6. Acute kidney injury. DISCUSSION AND PLAN: We will continue on antibiotics and epinephrine drip, driving the heart. Hopef ully, we will support the kidneys with good blood pressure and her kidney injury will start to resolv e over the next 24-48 hours. That being said, she has been anuric for nearly 20 hours. Supportive m anagement will be continued, but the patient's family is suggesting that she really would not want lo ng-term support, or dialysis. It is not clear whether or not they would be okay with these types of maneuvers on a temporary basis. They are going to discuss what they want with their family members. In the meantime, we will continue our intensive supportive care. CRITICAL CARE TIME: 30 minutes.
[2018-03-09] MEDS: Multivitamin W/ Minerals 1 TAB PO SCH (09:10)
[2018-03-09] MEDS: Zinc Sulfate 220 MG CAP PO SCH (09:10)
[2018-03-09] MEDS: Polyethylene Glycol 3350 17 GM Packet PO SCH ×2 (09:10→21:32)
[2018-03-09] MEDS: Aspirin 325 MG TAB PO SCH (09:10)
[2018-03-09] MEDS: Ascorbic Acid 500 mg Chewable Tablet PO SCH ×2 (09:10→21:32)
[2018-03-09] MEDS: Sodium Bicarbonate 150 MEQ in Dextrose 5% in Water 1,000 ML IV SCH (09:10)
[2018-03-09] MEDS: Acetaminophen ER (8hr) 650 MG TAB PO SCH ×2 (09:17→21:32)
[2018-03-09] MEDS: Famotidine/PF 20 mg/2ml Vial SLOW IVP SCH (09:55)
[2018-03-09] MEDS: EPINEPHrine 4 MG in Dextrose 5% in Water 250 ML IV SCH (10:58)
[2018-03-09] MEDS: Piperacillin/Tazobactam 2.25 GM in Sodium Chloride 0.9% 100 ML IVPB SCH ×2 (12:15→18:00)
[2018-03-09] MEDS: Micafungin 100 MG in Sodium Chloride 0.9% 100 ML IVPB SCH (13:47)
--- NOTE | 2018-03-09 15:02 | PDOC.PN ---
- Subjective Encounter Start Date: 03/09/18 Encounter Start Time: 15:01 -: non-verbal INTUBATED - Objective Vital Signs & Weight: Vital Signs (12 hours) Temp Pulse Resp BP 03/09/18 14:42 68 140/64 03/09/18 11:25 49 L 131/83 03/09/18 08:00 13 03/09/18 06:37 49 L 125/55 L 03/09/18 06:00 13 03/09/18 04:00 99.4 F 15 Weight Admit Weight 202 lb 12.8 oz Weight 203 lb 0.732 oz Most Recent Monitor Data Heart Rate from ECG 48 NIBP 122/50 NIBP BP-Mean 57 Respiration from ECG 21 SpO2 96 I&O: 03/08/18 03/09/18 03/10/18 06:59 06:59 06:59 Intake Total 2075 4545.7 Output Total 650 200 Balance 1425 4345.7 Result Diagrams: 03/09/18 04:40 03/09/18 04:40 Additional Labs: Accuchecks 03/09/18 03/09/18 03/08/18 11:11 04:42 21:59 POC Glucose 322 H 309 H 317 H 03/08/18 16:16 POC Glucose 324 H Phys Exam - Physical Examination Constitutional: NAD INTUBATED Neck: no JVD, supple Respiratory: no wheezing, no rales, no rhonchi, clear to auscultation bilateral Cardiovascular: RRR, no significant murmur, no rub Gastrointestinal: soft, non-tender, no distention Musculoskeletal: no edema Dx/Plan (1) UTI (urinary tract infection) Status: Acute Qualifiers: Urinary tract infection type: acute cystitis Hematuria presence: without hematuria Qualified Code(s): N30.00 - Acute cystitis without hematuria Plan: IV ANTIBIOTICS AND ANTIFUNGAL. UA WITH YEAST AND BH STREP. (2) Heart block Code(s): I45.9 - CONDUCTION DISORDER, UNSPECIFIED Status: Acute Plan: IMPROVED WITH PRESSORS. HAS TRANSCUT PACER IN PLACE SET AT 40. (3) ANUPAM (acute kidney injury) Code(s): N17.9 - ACUTE KIDNEY FAILURE, UNSPECIFIED Status: Acute Plan: HAS STARTED PRODUCING SOME URINE. CREAT STILL ELEVATED ABOVE BASELINE. IF DOESN'T IMPROVE WITH UOP, CONSIDER NEPHROLOGY CONSULT. Comment: Cr normal to 3.01. repeat pending (4) Severe sepsis Code(s): A41.9 - SEPSIS, UNSPECIFIED ORGANISM; R65.20 - SEVERE SEPSIS WITHOUT SEPTIC SHOCK Status: Acute (5) Acute metabolic encephalopathy Code(s): G93.41 - METABOLIC ENCEPHALOPATHY Status: Resolved Comment: about at baseline - Plan * ABOVE.
--- NOTE | 2018-03-09 15:31 | PDOC.EVN ---
Event Note - Event Note Event Note: MET WITH THE PATIENT'S FAMILY. TWO SONS AND THE DAUGHTER WHO IS POA. EXPLAINED THE SITUATION IN DETAIL. A GOOD DEAL OF INTERVENTIONS TO MAINTAIN HER IN CRITICAL STATE. UOP IS IMPROVING, BUT CREATININE SLIGHTLY UP. ANTICIPATE WE WILL KNOW MUCH MORE ABOUT HER SITUATION IN THE NEXT COUPLE OF DAYS. WILL CONTINUE TO TREAT AGGRESSIVELY. POA INDICATES THE PATIENT WAS NOT INTERESTED IN LONG-TERM LIFE SUPPORT, BUT HER SON WAS CLEAR THAT HE WANTS GOD TO BE THE ONE TO TAKE HER LAST BREATH. I EXPLAINED CLEARLY THAT WE ARE NOT SUGGESTING ANY WITHDRAWAL OF SUPPORT. SUGGEST WE CONTINUE TO BE AGGRESSIVE FOR A FEW DAYS AND REASSESS. I ALSO EXPLAINED THAT HER PROGNOSIS IS STILL EXTREMELY GUARDED. ADD'L TIME 27 MIN.
[2018-03-09] MEDS: Acetaminophen 325 MG TAB PO PRN (21:32)
[2018-03-09] MEDS: fentaNYL Citrate/PF 2,000 MCG in Sodium Chloride 0.9% 60 ML IV SCH (23:25)
[2018-03-10] MEDS: Piperacillin/Tazobactam 2.25 GM in Sodium Chloride 0.9% 100 ML IVPB SCH ×4 (00:51→17:17)
[2018-03-10] MEDS: Sodium Bicarbonate 150 MEQ in Dextrose 5% in Water 1,000 ML IV SCH (00:51)
[2018-03-10] MEDS: EPINEPHrine 4 MG in Dextrose 5% in Water 250 ML IV SCH ×2 (00:51→15:59)
--- NOTE | 2018-03-10 01:30 | PRG ---
DATE OF SERVICE: 03/09/2018 HOSPITAL VISIT NOTE SUBJECTIVE: This is an 88-year-old, female with hypotension, extreme bradycardia during th e EGD. The EGD was done yesterday morning because of anemia and also history of tarry stool. The EG D did show ulceration with gastritis. During the procedure, she developed extreme sinus bradycardia and also hypotension. She was given IV atropine and IV epinephrine and also given some fluid bolus. She done around and blood pressure came up normal and pulse rate picked up. However, in the PACU, s he again developed bradycardia and hypotension. She was transferred to ICU. She has a temporary pac emaker placement. She also has central line placement. She is on IV dopamine and also epinephrine t o keep her blood pressure up. She had no urine output until this afternoon. She started putting her urine. OBJECTIVE: VITAL SIGNS: Her pulse is around 60, blood pressure 100/76. CARDIOVASCULAR SYSTEM AND LUNGS: Within normal limits. ABDOMEN: Soft. Abdomen is nontender. LABORATORY DATA: The lab data shows today WBC 9100, hemoglobin 11.4, hematocrit 34.7, MCV 86.1, plat elet count 295,000, polymorphs 96. Chem panel shows BUN is 108, creatinine is 2.4. Electrolytes are normal. Calcium 7.7, phosphorus 5.5. RECOMMENDATIONS: 1. Continue ventilator support and vasopressor support. 2. Continue IV fluids. 3. Followup labs.
[2018-03-10] MEDS: Levothyroxine Sodium 50 MCG TAB PO SCH (05:44)
[2018-03-10] MEDS: HumaLOG 300 UNITS/3 ML VIAL SC PRN ×4 (05:57→22:16)
[2018-03-10 06:24] LABS: Anion Gap 17 mmol/L (10-20); BUN (Urea Nitrogen) 98 mg/dL (9.8-20.1); Calc. Creatinine Clearance 29 mL/min (70-130); Calcium 7.9 mg/dL (7.8-10.44); Carbon Dioxide 21 mmol/L (23-31); Chloride 99 mmol/L (98-107); Estimated GFR-MDRD 23; Glucose 417 mg/dL (83-110); Potassium 3.9 mmol/L (3.5-5.1); Sodium 133 mmol/L (136-145)
[2018-03-10 07:06] LABS: Hemoglobin 11.8 g/dL (12.0-16.0); Mean Corpuscular HGB CONC 32.7 g/dL (32.0-36.0); Mean Corpuscular Hemoglobin 27.3 pg (27.0-31.0); Mean Corpuscular Volume 83.5 fL (78.0-98.0); Mean Platelet Volume 6.3 fL (7.4-10.4); Platelet Count 269 thou/uL (130-400); RBC Distribution Width 18.7 % (11.5-14.5); Red Blood Cell (RBC) Count 4.31 mill/uL (4.20-5.40); White Blood Cell (WBC) Count 13.6 thou/uL (4.8-10.8)
[2018-03-10 09:19] LABS: Band 5 % (5-11); Lymphocytes 3 % (21-51); MDiff Complete? YES; Monocytes 8 % (0-10); Neutrophil 84 % (42-75); RBC Morphology Normal
[2018-03-10] MEDS: Multivitamin W/ Minerals 1 TAB PO SCH (09:26)
[2018-03-10] MEDS: Zinc Sulfate 220 MG CAP PO SCH (09:26)
[2018-03-10] MEDS: Aspirin 325 MG TAB PO SCH (09:26)
[2018-03-10] MEDS: Ascorbic Acid 500 mg Chewable Tablet PO SCH ×2 (09:26→22:02)
[2018-03-10] MEDS: Polyethylene Glycol 3350 17 GM Packet PO SCH ×2 (09:26→22:01)
[2018-03-10] MEDS: Sodium Chloride 0.9% 1,000 ML IV SCH ×2 (09:30→15:59)
[2018-03-10] MEDS: Famotidine/PF 20 mg/2ml Vial SLOW IVP SCH (09:47)
[2018-03-10] MEDS: Acetaminophen ER (8hr) 650 MG TAB PO SCH (09:48)
--- NOTE | 2018-03-10 12:14 | PRG ---
DATE OF SERVICE: 03/10/2018 SERVICE: Pulmonary Medicine INTERVAL HISTORY: The patient is doing fine from a respiratory standpoint. She denies any current c hest pain, nausea, vomiting, fevers or chills. Otherwise, she is awake on mechanical ventilation. S he has absolutely no complaints. There were no events overnight. Thankfully, she started making uri ne yesterday. Her creatinine is actually down, and her acidosis is being fixed. PHYSICAL EXAMINATION: VITAL SIGNS: Afebrile, pulse 68, blood pressure 159/76, respirations 21, saturation 95% on 27% FiO2 and a PEEP of 5. HEENT: Normocephalic, atraumatic. Sclerae are white, conjunctivae pink. Oral mucosa is moist witho ut lesions. LUNGS: Decent air entry. Minimal dependent crackles are present. HEART: Normal rate, regular. ABDOMEN: Soft, nontender, nondistended. Bowel sounds are positive. MUSCULOSKELETAL: No cyanosis or clubbing. There is no pitting in the bilateral lower extremities. NEUROLOGIC: Grossly nonfocal. LABORATORY DATA: WBC 13.6, hemoglobin 11.8, platelets 269,000. Neutrophils are 84% with only 5% ban ds. Creatinine 2.06, BUN 98. Sodium 133, potassium 3.9, bicarbonate 21. Urine is growing yeast spe cies and nonhemolytic Streptococcus. ASSESSMENT: 1. Acute hypoxic respiratory failure. 2. Metabolic encephalopathy. 3. Cardiogenic shock. 4. Junctional rhythm, return to normal sinus rhythm. 5. Urinary tract infection. 6. Acute kidney injury. DISCUSSION AND PLAN: We will wean the dopamine drip off. We will leave the epinephrine drip if she needs it. This will be very cautiously weaned off through time. She is making good urine. She is w aking up. We will put on a spontaneous breathing trial, once the fentanyl completely out of her syst em. At that time, extubation will be considered. I will discontinue the bicarbonate drip and put he r on normal saline. This will be at 100 mL per hour. She is slightly on the dry side. Pulmonary Cr itical Care will continue to follow. CRITICAL CARE TIME: 30 minutes.
[2018-03-10 12:44] LABS: Actual Bicarbonate (HCO3a) 19.8 mEq/L (22-28); Base Excess (BEa) -4.2 mEq/L (-2.0 to +3.0); CO2 Tension 32.9 mmHg (35.0-45.0); Hemoglobin (Hb) 12.3 g/dL (12.0-16.0)
[2018-03-10 12:45] LABS: ALV-art Gradient 331.675 (0-20); Calcium, Ionized 1.1 mmol/L (1.12-1.30); Puncture Site ALINE
[2018-03-10] MEDS: DOPamine 400 MG/D5W 250 ML 250 ML IVPB SCH (12:49)
[2018-03-10] MEDS: Micafungin 100 MG in Sodium Chloride 0.9% 100 ML IVPB SCH (12:51)
--- NOTE | 2018-03-10 15:52 | RAD ---
FRONTAL RADIOGRAPH CHEST: Date: 03-10-18 Comparison: 03-08-18 History: Ventilated patient with decreasing oxygen saturation. FINDINGS: Nasogastric tube extends into the left upper quadrant, incompletely imaged. Endotracheal tube project s over the tracheal air column terminating in the region of the left clavicular heads. There is a rig ht sided vascular catheter, distal tip just below the expected location of the cavoatrial junction. There is dense pleural and parenchymal opacity in both lung bases, left greater than right, suggestin g nonspecific bibasilar consolidation/collapse and bilateral pleural effusions. Findings do not appea r significantly changed when compared to 03-08-18. IMPRESSION: No significant interval change. Lines and tubes as above. Persistent bibasilar pleural and parenchyma l opacities. POS: [facility]
--- NOTE | 2018-03-10 21:53 | PDOC.PN ---
- Subjective Encounter Start Date: 03/10/18 Encounter Start Time: 15:00 -: non-verbal - Objective Vital Signs & Weight: Vital Signs (12 hours) Temp Pulse Resp BP 03/10/18 18:21 67 134/68 03/10/18 18:00 13 03/10/18 16:00 97 F L 14 03/10/18 14:42 61 119/42 L 03/10/18 14:00 15 03/10/18 12:00 97.8 F 13 03/10/18 11:58 13 03/10/18 11:07 68 159/76 H 03/10/18 10:00 11 L Weight Admit Weight 202 lb 12.8 oz Weight 206 lb 12.697 oz Most Recent Monitor Data Heart Rate from ECG 65 NIBP 134/68 NIBP BP-Mean 104 Respiration from ECG 15 SpO2 100 I&O: 03/09/18 03/10/18 03/11/18 06:59 06:59 06:59 Intake Total 4545.7 3772.9 1512 Output Total 200 2310 1085 Balance 4345.7 1462.9 427 Result Diagrams: 03/10/18 05:35 03/10/18 05:35 Additional Labs: Accuchecks 03/10/18 03/10/18 03/10/18 15:59 09:54 05:44 POC Glucose 299 H 371 H 391 H Phys Exam - Physical Examination Constitutional: NAD Intubated Respiratory: no wheezing, no rales, no rhonchi Cardiovascular: RRR, no significant murmur Gastrointestinal: soft, no distention Musculoskeletal: no edema Dx/Plan (1) UTI (urinary tract infection) Status: Acute Qualifiers: Urinary tract infection type: acute cystitis Hematuria presence: without hematuria Qualified Code(s): N30.00 - Acute cystitis without hematuria Plan: Continue broad spectrum abx., including antifungal. (2) Heart block Code(s): I45.9 - CONDUCTION DISORDER, UNSPECIFIED Status: Acute Plan: Severe bradycardia requiring positive chronotrope gtts and transcutaneous pacer. Improved, but still on gtt. (3) ANUPAM (acute kidney injury) Code(s): N17.9 - ACUTE KIDNEY FAILURE, UNSPECIFIED Status: Acute Plan: Stable. UOP has imrpoved. (4) Severe sepsis Code(s): A41.9 - SEPSIS, UNSPECIFIED ORGANISM; R65.20 - SEVERE SEPSIS WITHOUT SEPTIC SHOCK Status: Acute (5) Acute metabolic encephalopathy Code(s): G93.41 - METABOLIC ENCEPHALOPATHY Status: Resolved Comment: about at baseline (6) GI bleed Code(s): K92.2 - GASTROINTESTINAL HEMORRHAGE, UNSPECIFIED Status: Suspected Plan: Stable. GI following. Eliquis held. - Plan * Above.
[2018-03-10] MEDS: Acetaminophen 325 MG TAB PO PRN (22:02)
[2018-03-11] MEDS: Acetaminophen ER (8hr) 650 MG TAB PO SCH ×3 (00:39→23:20)
[2018-03-11] MEDS: Piperacillin/Tazobactam 2.25 GM in Sodium Chloride 0.9% 100 ML IVPB SCH ×5 (00:41→23:20)
--- NOTE | 2018-03-11 03:29 | PRG ---
DATE OF SERVICE: 03/10/2018 SUBJECTIVE: This is an 88-year-old woman hospitalized with abdominal pain, history of tarry stools and also positive . An EGD done over the weekend, became hypotensive and also bradycardic. The patient returns to ICU and was placed on vasopressors and IV epinephrine. She was on dopamine until yesterday. She also appears to have a ventilator. She has a temporary pacemaker placement. Today, she is actually awake and trying to respond to some questions. PHYSICAL EXAMINATION: VITAL SIGNS: Stable. Her pulse is 68, blood pressure is 139/56. She is off Zosyn but she is on IV epinephrine. CARDIOVASCULAR SYSTEM: First and second heart sounds normal. LUNGS: Clear to auscultation. ABDOMEN: Soft and nontender. LABORATORY DATA: From today; CBC, WBC 13,600, hemoglobin 11.8, hematocrit 36, MCV is 83.5, platelet count is 269,000. Chemistry panel shows BUN slightly dropping to 98. Chem-7 is normal, potassium 3.9, and creatinine 2.06. She is also passing urine and urine is very light colored. Intake yesterday was 4545 and output was about 200 mL. Today, her output is measured 2310. RECOMMENDATIONS: 1. Follow up labs. 2. Wean off the ventilator. Hopefully, patient can be extubated tomorrow. WINNIE
[2018-03-11] MEDS: Sodium Chloride 0.9% 1,000 ML IV SCH ×2 (05:16→14:37)
[2018-03-11] MEDS: Levothyroxine Sodium 50 MCG TAB PO SCH (06:09)
[2018-03-11] MEDS: HumaLOG 300 UNITS/3 ML VIAL SC PRN ×4 (06:12→23:29)
[2018-03-11] MEDS: EPINEPHrine 4 MG in Dextrose 5% in Water 250 ML IV SCH ×2 (06:19→19:40)
[2018-03-11 06:22] LABS: Anion Gap 12 mmol/L (10-20); BUN (Urea Nitrogen) 70 mg/dL (9.8-20.1); Calc. Creatinine Clearance 49 mL/min (70-130); Calcium 7.9 mg/dL (7.8-10.44); Carbon Dioxide 23 mmol/L (23-31); Chloride 105 mmol/L (98-107); Estimated GFR-MDRD 42; Glucose 258 mg/dL (83-110); Potassium 3.5 mmol/L (3.5-5.1); Sodium 136 mmol/L (136-145)
[2018-03-11 06:52] LABS: Band 7 % (5-11); Lymphocytes 1 % (21-51); MDiff Complete? YES; Mean Corpuscular Hemoglobin 27.5 pg (27.0-31.0); Mean Corpuscular Volume 83.6 fL (78.0-98.0); Mean Platelet Volume 6.3 fL (7.4-10.4); Monocytes 6 % (0-10); Neutrophil 86 % (42-75); Platelet Count 268 thou/uL (130-400); RBC Distribution Width 18.7 % (11.5-14.5); Red Blood Cell (RBC) Count 4.37 mill/uL (4.20-5.40); White Blood Cell (WBC) Count 17.3 thou/uL (4.8-10.8)
[2018-03-11] MEDS: Multivitamin W/ Minerals 1 TAB PO SCH (09:18)
[2018-03-11] MEDS: Amiodarone 200 MG TAB PER TUBE SCH ×2 (09:18→23:19)
[2018-03-11] MEDS: Polyethylene Glycol 3350 17 GM Packet PO SCH ×2 (09:18→23:18)
[2018-03-11] MEDS: Zinc Sulfate 220 MG CAP PO SCH (09:18)
[2018-03-11] MEDS: Aspirin 325 MG TAB PO SCH (09:18)
[2018-03-11] MEDS: Famotidine/PF 20 mg/2ml Vial SLOW IVP SCH (09:24)
[2018-03-11] MEDS: Ascorbic Acid 500 mg Chewable Tablet PO SCH ×2 (09:28→23:19)
[2018-03-11] MEDS: Propofol 1,000 MG/100 ML VIAL IV PRN (11:13)
[2018-03-11] MEDS: Micafungin 100 MG in Sodium Chloride 0.9% 100 ML IVPB SCH (14:38)
--- NOTE | 2018-03-11 15:55 | PDOC.PN ---
- Subjective Encounter Start Date: 03/11/18 Encounter Start Time: 14:30 -: non-verbal Shakes her head no when asked if she is in pain. - Objective Resuscitation Status: Resuscitation Status DNR:Do Not Resuscitate MAR Reviewed: Yes Vital Signs & Weight: Vital Signs (12 hours) Temp Pulse Resp BP Pulse Ox 03/11/18 14:20 104 H 113/74 03/11/18 14:00 103 H 20 129/81 03/11/18 13:31 113 H 16 111/77 03/11/18 13:00 16 03/11/18 12:00 97.5 F L 15 03/11/18 10:09 100 126/60 03/11/18 10:00 19 03/11/18 08:01 107 H 129/62 03/11/18 08:00 16 03/11/18 07:56 97.5 F L 103 H 16 95 03/11/18 07:00 97.5 F L 03/11/18 06:00 13 03/11/18 04:00 98.2 F 13 Weight Admit Weight 202 lb 12.8 oz Weight 209 lb 7.026 oz Most Recent Monitor Data Heart Rate from ECG 101 NIBP 86/59 NIBP BP-Mean 71 Respiration from ECG 13 SpO2 100 I&O: 03/10/18 03/11/18 03/12/18 06:59 06:59 06:59 Intake Total 3772.9 3505.3 100 Output Total 2310 2340 510 Balance 1462.9 1165.3 -410 Result Diagrams: 03/11/18 06:04 03/11/18 06:04 Additional Labs: Accuchecks 03/11/18 03/11/18 03/10/18 11:07 06:02 21:57 POC Glucose 233 H 249 H 289 H 03/10/18 15:59 POC Glucose 299 H Phys Exam - Physical Examination Respiratory: no rales Scattered upper airway ronchi. Cardiovascular: RRR, no significant murmur, no rub Gastrointestinal: soft, non-tender, no distention Musculoskeletal: no edema Left medical calf lesion dressed. Feet are very cold. Will awaken and make eye contact. Skin: no rash, normal turgor Dx/Plan (1) UTI (urinary tract infection) Status: Acute Qualifiers: Urinary tract infection type: acute cystitis Hematuria presence: without hematuria Qualified Code(s): N30.00 - Acute cystitis without hematuria Comment: Zosyn, micafungin. Grew yeast on culture. (2) Heart block Code(s): I45.9 - CONDUCTION DISORDER, UNSPECIFIED Status: Acute Comment: Transcutaneous pacer removed. Still on chronotropics to maintain adequate HR. (3) ANUPAM (acute kidney injury) Code(s): N17.9 - ACUTE KIDNEY FAILURE, UNSPECIFIED Status: Acute Plan: Creatinine is improving and she is making some urine. Still not at baseline. Still on "renal dose" dopamine. (4) Severe sepsis Code(s): A41.9 - SEPSIS, UNSPECIFIED ORGANISM; R65.20 - SEVERE SEPSIS WITHOUT SEPTIC SHOCK Status: Acute (5) Acute metabolic encephalopathy Code(s): G93.41 - METABOLIC ENCEPHALOPATHY Status: Resolved (6) GI bleed Code(s): K92.2 - GASTROINTESTINAL HEMORRHAGE, UNSPECIFIED Status: Suspected Plan: Had some PUD on initial endoscopy, but became bradycardic mid procedure. Stable counts. No evidence of significant bleed. On H2 antagonist. (7) Diabetes Code(s): E11.9 - TYPE 2 DIABETES MELLITUS WITHOUT COMPLICATIONS Status: Chronic Qualifiers: Diabetes mellitus type: type 2 Diabetes mellitus watermelon inspector insulin use: without assisted use Diabetes mellitus complication status: without complication Qualified Code(s): E11.9 - Type 2 diabetes mellitus without complications Plan: Hyperglycemic. On steroids. Continue SSI. - Plan * See separate note regarding advanced care plan meeting with family and staff. * Now DNR. Plan is to convert to comfort care tomorrow.
[2018-03-11] MEDS ORDERED: Sodium Chloride 0.9% 1,000 ML IV SCH (16:11)
[2018-03-11] MEDS ORDERED: Furosemide 40 MG/4 ML VIAL SLOW IVP SCH (16:15)
--- NOTE | 2018-03-11 18:42 | PRG ---
DATE OF SERVICE: 03/11/2018 SERVICE: Pulmonary Medicine. INTERVAL HISTORY: The patient is doing poorly overnight. Oxygen requirements have gone up. She is having increasing rhonchi in bilateral lungs. She went into atrial fibrillation with a rapid rate and dropped her blood pressure. She got put on a couple of medications once again. Otherwise, her acute kidney injury seems to be improving a little bit. Mentation hanna, she is doing just fine. I talked to the patient's daughter about whether or not she want all of these interventions. She suggested that she would not. As such, she is thinking about transition over to comfort care only, but would like for the brothers to be involved in this decision. OBJECTIVE: VITAL SIGNS: Afebrile, pulse 101, blood pressure 86/59, respirations 13, saturation 100% on 70% FiO2 and a PEEP of 7. HEENT: Normocephalic, atraumatic. Sclerae are white, conjunctivae pink. Oral mucosa is moist without lesions. LUNGS: Extensive rhonchi are present. There is decreased air entry in the right side. No prolonged expiratory phase or wheezing is appreciated. HEART: Normal rate, regular. ABDOMEN: Soft, nontender, nondistended. Bowel sounds are positive. MUSCULOSKELETAL: No cyanosis or clubbing. There is no pitting in the bilateral lower extremities. NEUROLOGIC: Grossly nonfocal. LABORATORY DATA: WBC 17.3, hemoglobin 12.0, platelets 268,000. Neutrophil are 86% with 7% bands. Creatinine 1.22, which is still down trending. Basic metabolic profile is otherwise unremarkable. Potassium is 3.5. BUN has improved to 70. IMAGING: Chest x-ray demonstrates no significant interval change. Bibasilar pleural and parenchymal opacities are present. ASSESSMENT: 1. Acute hypoxic respiratory failure. 2. Cardiogenic shock, resolved. 3. Junctional rhythm, previously returned to normal sinus. 4. Septic shock. 5. Urinary tract infection. 6. Atrial fibrillation with rapid ventricular response, currently rate controlled. 7. Acute kidney injury, resolved. 8. Hypokalemia. PLAN: We will give the patient a dose of potassium. She is volume up over the past several days. As such, provided with a single dose of Lasix. Otherwise, supportive measures will be continued. If at some point in the very near future , the patient's family is interested in transitioning to comfort care only, we will make that occur. That being said, until that decision is made, we will continue on with supportive care. Critical care time: 30 minutes. WINNIE
[2018-03-11] MEDS: Acetaminophen 325 MG TAB PO PRN (23:19)
[2018-03-12 05:52] LABS: Anion Gap 12 mmol/L (10-20); BUN (Urea Nitrogen) 61 mg/dL (9.8-20.1); Calc. Creatinine Clearance 58 mL/min (70-130); Calcium 8.1 mg/dL (7.8-10.44); Carbon Dioxide 22 mmol/L (23-31); Chloride 108 mmol/L (98-107); Estimated GFR-MDRD 50; Glucose 211 mg/dL (83-110); Potassium 4.4 mmol/L (3.5-5.1); Sodium 138 mmol/L (136-145)
[2018-03-12 06:15] LABS: Band 1 % (5-11); Hemoglobin 11.6 g/dL (12.0-16.0); Lymphocytes 2 % (21-51); MDiff Complete? YES; Mean Corpuscular HGB CONC 31.9 g/dL (32.0-36.0); Mean Corpuscular Hemoglobin 26.9 pg (27.0-31.0); Mean Corpuscular Volume 84.4 fL (78.0-98.0); Mean Platelet Volume 6.6 fL (7.4-10.4); Monocytes 4 % (0-10); Neutrophil 93 % (42-75); PLT Morphology Comment Appears Adequate; Platelet Count 249 thou/uL (130-400); RBC Distribution Width 18.7 % (11.5-14.5); Red Blood Cell (RBC) Count 4.32 mill/uL (4.20-5.40); White Blood Cell (WBC) Count 21.2 thou/uL (4.8-10.8)
[2018-03-12] MEDS: Propofol 1,000 MG/100 ML VIAL IV PRN (06:51)
[2018-03-12] MEDS: EPINEPHrine 4 MG in Dextrose 5% in Water 250 ML IV SCH (06:51)
[2018-03-12] MEDS: HumaLOG 300 UNITS/3 ML VIAL SC PRN (06:52)
[2018-03-12] MEDS: Levothyroxine Sodium 50 MCG TAB PO SCH (06:59)
[2018-03-12 07:42] VITALS: BMI 31.4
--- NOTE | 2018-03-12 08:26 | PDOC.PN ---
- Subjective Encounter Start Date: 03/12/18 Encounter Start Time: 08:25 -: non-verbal SHE IS INTUBATED, BUT SHE EASILY AWAKENS. WITH ATTEMPTS TO EXAMINE HER, SHE SHAKES HER HEAD "NO" AND PUSHES ME AWAY BEST SHE CAN. SHE BITES DOWN ON THE ET TUBE. - Objective Resuscitation Status: Resuscitation Status DNR:Do Not Resuscitate Vital Signs & Weight: Vital Signs (12 hours) Temp Pulse Resp BP 03/12/18 08:00 18 03/12/18 06:58 101 H 109/64 03/12/18 06:00 13 03/12/18 04:00 97.9 F 19 03/12/18 02:12 90 104/66 03/12/18 02:00 18 03/12/18 00:00 98.0 F 13 03/11/18 22:19 104 H 87/62 L 03/11/18 22:00 13 Weight Admit Weight 202 lb 12.8 oz Weight 212 lb 8.41 oz Most Recent Monitor Data Heart Rate from ECG 101 NIBP 119/68 NIBP BP-Mean 83 Respiration from ECG 19 SpO2 83 I&O: 03/11/18 03/12/18 03/13/18 06:59 06:59 06:59 Intake Total 3505.3 3640.1 0 Output Total 2340 2025 25 Balance 1165.3 1615.1 -25 Result Diagrams: 03/12/18 05:21 03/12/18 05:21 Additional Labs: Accuchecks 03/12/18 03/11/18 03/11/18 05:09 23:02 16:09 POC Glucose 198 H 200 H 203 H 03/11/18 11:07 POC Glucose 233 H Phys Exam - Physical Examination INTUBATED. EASILY AWAKENED SCATTERED RALES Cardiovascular: no significant murmur Gastrointestinal: soft, no distention Musculoskeletal: no edema Dx/Plan (1) UTI (urinary tract infection) Status: Acute Qualifiers: Urinary tract infection type: acute cystitis Hematuria presence: without hematuria Qualified Code(s): N30.00 - Acute cystitis without hematuria Comment: Zosyn, micafungin. Grew yeast on culture. (2) Heart block Code(s): I45.9 - CONDUCTION DISORDER, UNSPECIFIED Status: Acute Comment: Transcutaneous pacer removed. Still on chronotropics to maintain adequate HR. (3) ANUPAM (acute kidney injury) Code(s): N17.9 - ACUTE KIDNEY FAILURE, UNSPECIFIED Status: Acute (4) Severe sepsis Code(s): A41.9 - SEPSIS, UNSPECIFIED ORGANISM; R65.20 - SEVERE SEPSIS WITHOUT SEPTIC SHOCK Status: Acute (5) Acute metabolic encephalopathy Code(s): G93.41 - METABOLIC ENCEPHALOPATHY Status: Resolved (6) GI bleed Code(s): K92.2 - GASTROINTESTINAL HEMORRHAGE, UNSPECIFIED Status: Suspected (7) Diabetes Code(s): E11.9 - TYPE 2 DIABETES MELLITUS WITHOUT COMPLICATIONS Status: Chronic Qualifiers: Diabetes mellitus type: type 2 Diabetes mellitus rodent exterminator insulin use: without rodent exterminator use Diabetes mellitus complication status: without complication Qualified Code(s): E11.9 - Type 2 diabetes mellitus without complications - Plan * DISCUSSED WITH HER PRIMARY NURSE FOR TODAY. SHE HAS BEEN RESISTANT NURSING ATTEMPTS TO ASSESS HER WELL. CHANGING HER LINES WHICH INTERRUPTED THE EPI FOR LESS THAN A MINUTE DID CAUSE SOME DROP IN HER BP. ANTICIPATE FAMILY ARRIVING TODAY. ANTICIPATE CONVERTING TO COMFORT MEASURES TODAY.
--- NOTE | 2018-03-12 08:26 | PRG ---
DATE OF SERVICE: 03/11/2018 Today, I had a meeting with the patient's daughter, her son-in-law, and her son. Additionally, the p alliative care nurse, the patient's primary nurse for today, and were all present to discuss paty ralph patient's overall situation. Her daughter is her power of employee benefits attorney. Her son has some significant concerns and admittedly has some animosity and distress toward the healthcare system in general and " [employer]". He is into naturopathic type of interventions. The palliative care team help initiate this conversation. The patient has not had substantial improvement from a pulmonary perspective. Mundo ralph is still having issues with her cardiac and renal systems as well. She is requiring a significant chronotropic pressors to maintain a heart rate that is only in the low 60s. She has had a few days n ow to see how she was going to respond to intervention. The family had the opportunity to express th eir concerns. There is some difference of opinion between the power of employee benefits attorney and her brother. Mundo ralph feels confident that she is making the right decision with respect to her mother's wishes and ashwinin g her a DNR now and attempting to convert her to comfort care once family members have had the opport unity to arrive and visit her. She also asked the opinion from the nonprofit manager and we were to make sure that everyone in the room was able to hear that what she was doing was consistent with a [employer] pr inciples and biblical doctrine. Ultimately, she has decided to move forward after much discussion to make the patient DNR and to allow for family members to arrive in the morning, at which time we will likely extubate the patient to keep her on comfort measures only. Much detail was discussed regardi ng the current treatment and potential other treatment options. Total time spent was 40 minutes.
[2018-03-12] MEDS ORDERED: Furosemide 40 MG/4 ML VIAL SLOW IVP SCH (09:00)
[2018-03-12] MEDS: Ascorbic Acid 500 mg Chewable Tablet PO SCH ×2 (09:09→21:09)
[2018-03-12] MEDS: Multivitamin W/ Minerals 1 TAB PO SCH (09:09)
[2018-03-12] MEDS: Zinc Sulfate 220 MG CAP PO SCH (09:09)
[2018-03-12] MEDS: Amiodarone 200 MG TAB PER TUBE SCH ×2 (09:09→21:09)
[2018-03-12] MEDS: Aspirin 325 MG TAB PO SCH (09:09)
[2018-03-12] MEDS: Famotidine/PF 20 mg/2ml Vial SLOW IVP SCH (09:10)
[2018-03-12] MEDS: Polyethylene Glycol 3350 17 GM Packet PO SCH ×2 (09:11→21:10)
[2018-03-12] MEDS: Acetaminophen ER (8hr) 650 MG TAB PO SCH ×2 (09:33→21:09)
[2018-03-12] MEDS ORDERED: Lorazepam 2 MG/ML VIAL SLOW IVP PRN (10:47)
--- NOTE | 2018-03-12 15:59 | PRG ---
DATE OF SERVICE: 03/12/2018 SERVICE: Pulmonary Medicine. INTERVAL HISTORY: The patient is doing fine from a respiratory standpoint. Her oxygen requirements are dramatically improving with diuresis. She cannot provide any additional elements of the history, because she is under the influence of some sedating medications. Whenever we dropped the epinephrine, the pulse and blood pressure dropped. PHYSICAL EXAMINATION: VITAL SIGNS: Afebrile, pulse 103, blood pressure 107/64, respirations 22, saturation 100% on 40% FIO2 and a PEEP of 5. HEENT: Normocephalic, atraumatic. Sclerae are white, conjunctivae pink. Oral and nasal mucosa is moist without lesions. LUNGS: Decent air entry. Rhonchi are present. There is also dependent crackles. No prolonged expiratory phase or wheezing is appreciated. HEART: Normal rate, regular. ABDOMEN: Soft, nontender, nondistended. Bowel sounds are positive. MUSCULOSKELETAL: No cyanosis or clubbing. There is no pitting in the bilateral lower extremities. NEUROLOGIC: Grossly nonfocal. LABORATORY DATA: WBC 21.2 and up trending, hemoglobin 11.6, platelets 249,000. Neutrophil count is 93% with 1% bands, which is improved. PH 7.40, pCO2 of 32. Creatinine 1.05 and down trending. Basic metabolic profile is otherwise unremarkable. Bicarbonate is now at the lower limits of normal at 22. ASSESSMENT: 1. Acute hypoxic respiratory failure. 2. Cardiogenic shock. 3. Septic shock. 4. Urinary tract infection. 5. Junctional rhythm, currently normal sinus rhythm. 6. Atrial fibrillation with rapid ventricular response, currently sinus rhythm. 7. Acute kidney injury, resolved. 8. Hypokalemia, resolved. DISCUSSION AND PLAN: The patient's family had a conversation with the primary physician yesterday. They are planning on proceeding with comfort measures only as soon as some family members arrive. Until then, we will continue supportive care including antibiotics, nebulized medications, steroids, tube feeds, and ventilator support. Multiple adjustments have been made to the FIO2 and PEEP, in order to turn more work of breathing over to the patient. Critical care time: 30 minutes. MTDD
[2018-03-12] MEDS: Micafungin 100 MG in Sodium Chloride 0.9% 100 ML IVPB SCH (16:46)
--- NOTE | 2018-03-12 21:16 | PDOC.EVN ---
Event Note - Event Note Event Note: Patient was extubated and maintained her vital signs. She was transferred out of the ICU to the Oncology floor. The plan was for "palliative care", but the family continued to have issues regarding differences of opinion. The patient' s son expressed concern that the patient was not receiving IVF and not getting fed. He believed that the patient's daughter had signed the DNR and that precluded the use of IVF or feeds. The daughter (POA) said her brothers were saying she was "murdering" their mother by depriving her of such. I talked with the family, including the children and grandchildren. I explained that we are willing and able to pursue any course of action they choose (through the POA ) and nothing was precluded by the DNR other than resuscitative efforts should she pass. We did resume some fluids. I explained that attempts at feeding her would be risky because of aspiration risks. That would hold true for enteral tube feeds as well right now. We can continue to monitor her progress and see if that may become an option. Time talking with family 35 minutes.
[2018-03-12] MEDS ORDERED: Scopolamine 1.5 mg/72 hour Patch TOP SCH (23:00)
--- NOTE | 2018-03-13 02:46 | PRG ---
DATE OF SERVICE: 03/12/2018 SUBJECTIVE: This is an 88-year-old hospitalized over the weekend last week because of dehydration, history of tarry stool. She underwent an EGD over the weekend and developed hypotension and severe bradycardia. She has been sedated. She is in the ICU, has a temporary pacemaker. She was on ventilator until this morning. She has been extubated about 20 minutes ago. She appears very comfortable. She does try to talk, but her voice is very hoarse. Her epinephrine drip was stopped. PHYSICAL EXAMINATION: VITAL SIGNS: Her vital signs are actually stable. Her pulse is 98, blood pressure is 107/70. GENERAL: She appears comfortable. CARDIOVASCULAR SYSTEM: First and second heart sounds normal. LUNGS: A few scattered rhonchi. ABDOMEN: Abdomen is soft. Abdomen is nontender. LABORATORY DATA: WBC 21,200, hemoglobin 11.6, platelet count 100,000. The BUN has come down to 70 and creatinine is 1.5. The patient seems to be doing well after extubation. CLINICAL IMPRESSION: 1. Anemia, history of tarry stool. 2. Gastric ulcers x3 with gastritis. 3. Severe bradycardia during the procedure. 4. Hypotension. 5. Urinary tract infection. 6. Atrial fibrillation with left ventricular rate while in the ICU. 7. Chronic kidney disease. RECOMMENDATIONS: 1. Supportive care. 2. Hopefully, the patient can be fed tomorrow. [facility]
--- NOTE | 2018-03-13 08:14 | PDOC.PN ---
- Subjective Encounter Start Date: 03/13/18 Encounter Start Time: 08:13 -: non-verbal Discussed with patient's daughter/POA. Sats are dropping. Oxygen was increased. - Objective Resuscitation Status: Resuscitation Status DNR:Do Not Resuscitate Vital Signs & Weight: Vital Signs (12 hours) Temp Pulse Resp Pulse Ox 03/12/18 20:30 97.4 F L 57 L 20 77 L Weight Admit Weight 202 lb 12.8 oz Weight 225 lb 8.526 oz Most Recent Monitor Data Heart Rate from ECG 59 NIBP 92/34 NIBP BP-Mean 40 Respiration from ECG 32 SpO2 88 I&O: 03/12/18 03/13/18 03/14/18 06:59 06:59 06:59 Intake Total 3640.1 12.1 Output Total 2024 835 Balance 1615.1 -822.9 Result Diagrams: 03/12/18 05:21 03/12/18 05:21 Additional Labs: Accuchecks 03/12/18 11:15 POC Glucose 182 H Phys Exam - Physical Examination Minimal responsiveness Very diminished throughout. Cardiovascular: RRR, no significant murmur Gastrointestinal: soft, non-tender Skin: normal turgor Dx/Plan (1) UTI (urinary tract infection) Status: Acute Qualifiers: Urinary tract infection type: acute cystitis Hematuria presence: without hematuria Qualified Code(s): N30.00 - Acute cystitis without hematuria (2) Heart block Code(s): I45.9 - CONDUCTION DISORDER, UNSPECIFIED Status: Acute (3) ANUPAM (acute kidney injury) Code(s): N17.9 - ACUTE KIDNEY FAILURE, UNSPECIFIED Status: Acute (4) Severe sepsis Code(s): A41.9 - SEPSIS, UNSPECIFIED ORGANISM; R65.20 - SEVERE SEPSIS WITHOUT SEPTIC SHOCK Status: Acute (5) Acute metabolic encephalopathy Code(s): G93.41 - METABOLIC ENCEPHALOPATHY Status: Resolved (6) GI bleed Code(s): K92.2 - GASTROINTESTINAL HEMORRHAGE, UNSPECIFIED Status: Suspected (7) Diabetes Code(s): E11.9 - TYPE 2 DIABETES MELLITUS WITHOUT COMPLICATIONS Status: Chronic Qualifiers: Diabetes mellitus type: type 2 Diabetes mellitus intermediate frame tender insulin use: without jail use Diabetes mellitus complication status: without complication Qualified Code(s): E11.9 - Type 2 diabetes mellitus without complications - Plan * Patient is receiving supportive measures in the way of fluids and supplemental oxygen. Will change fluids to D51/2NS. She has comfort meds in MSO4 and Ativan prn. Discussed Hospice as an option, but given the family dynamics the decision was to continue as is.
[2018-03-13] MEDS ORDERED: D5 1/2 NS 1,000 ML IV SCH (08:15)
--- NOTE | 2018-03-13 12:55 | PRG ---
DATE OF SERVICE: 03/13/2018 SERVICE: Pulmonary Medicine. INTERVAL HISTORY: The patient is doing okay from a respiratory standpoint. She remains comfortable. The family has transitioned over to comfort care only. There were no significant events overnight. I just spoke with the patient's daughter and she suggesting that her mom appears to be comfortable. PHYSICAL EXAMINATION: VITAL SIGNS: Afebrile, pulse 66, blood pressure 104/50, respirations 32, saturation 82% on 4 liters nasal cannula. GENERAL: The patient is awake, alert, no apparent distress. LUNGS: Rhonchi are present. There are no crackles or wheezing. HEART: Normal rate, regular. ABDOMEN: Soft, nontender, nondistended. Bowel sounds are positive. MUSCULOSKELETAL: No cyanosis or clubbing. No pitting in the bilateral lower extremities. NEUROLOGIC: Grossly nonfocal. ASSESSMENT: 1. Acute hypoxic respiratory failure. 2. Cardiogenic shock. 3. Septic shock. 4. Urinary tract infection. 5. Junctional rhythm, currently sinus. 6. Atrial fibrillation with rapid ventricular response, currently sinus. 7. Acute kidney injury. 8. Hypokalemia. DISCUSSION AND PLAN: The patient's family has transitioned over to comfort care only. As such, she has no further requirements for Pulmonary or Critical Care opinion. I will sign off at this time. Judy graff call with additional questions or concerns moving forward. I do believe that she would be appr opriate for inpatient hospice.
[2018-03-13] MEDS ORDERED: Dextrose 5 %-0.45 % NaCl 1,000 ML IV SCH (15:00)
[2018-03-13 18:45] VITALS: BP 104/59
[2018-03-13 21:46] VITALS: TEMP 95.6
--- NOTE | 2018-03-16 14:36 | PQF ---
JOSE BADILLO DAVID R MD [id number] CLINICAL DOCUMENTATION CLARIFICATION FORM: POST DISCHARGE Addendum to original discharge summary date: ____ Late entry note date: __ Your assistance is needed to assign the appropriate diagnosis code for GI hemorrage as mentioned i within the record. Please specify the cuase/site of GI bleed or indicate "unknonwn etiology" Please exercise your independent, professional judgment in responding to the clarification form. Clinical indicators are provided on the bottom of this form for your review Please check appropriate box(s): [ ] Upper Gastrointestinal hemorrage due to [ x] Gastric Ulcer [ ] Esophageal Ulcer [ ] Duodenal, Duodenum [ ] Other location (specify) [ ] Any related or contributing disease(s) Alcohol or drugs: [ ] Other diagnosis (specify) [ ] Unable to determine In addition, please specify: Present on Admission (POA): [ x] Yes [ ] No [ ] Unable to determine For continuity of documentation, please document condition throughout progress notes and discharge summary. Thank You. CLINICAL INDICATORS - SIGNS / SYMPTOMS / LABS Abdominal pain Melena RISK FACTORS sepsis TREATMENTS: EGD/GI consult Serial Hgb/Hcts Transfusions (This form is maintained as a part of the permanent medical record) 2014 [employer] All Rights Reserved [email or web address] [email or web address] [phone] WINNIE
== END 2018-03-14 03:02 | disposition expired | DRG 853 ==
LOC: ERS 15:09 → 2NO 17:46 → CCU 03-08 10:02 → ONC 03-12 16:25
PROVIDERS: ADMIT Family Medicine; ATTEND Family Medicine
PROC: 0BH17EZ Insertion of Endotracheal Airway into Trachea, Via Natural or Artificial Opening (ICD-10-PCS; 2018-03-06)
PROC: 02HV33Z Insertion of Infusion Device into Superior Vena Cava, Percutaneous Approach (ICD-10-PCS; 2018-03-06)
PROC: 3E033XZ Introduction of Vasopressor into Peripheral Vein, Percutaneous Approach (ICD-10-PCS; principal; 2018-03-08)
PROC: 0D968ZZ Drainage of Stomach, Via Natural or Artificial Opening Endoscopic (ICD-10-PCS; 2018-03-08)
PROC: 5A1223Z Performance of Cardiac Pacing, Continuous (ICD-10-PCS; 2018-03-08)
PROC: 0DB68ZX Excision of Stomach, Via Natural or Artificial Opening Endoscopic, Diagnostic (ICD-10-PCS; 2018-03-08)
PROC: 0DB78ZX Excision of Stomach, Pylorus, Via Natural or Artificial Opening Endoscopic, Diagnostic (ICD-10-PCS; 2018-03-08)
PROC: 3E043XZ Introduction of Vasopressor into Central Vein, Percutaneous Approach (ICD-10-PCS; 2018-03-08)
PROC: 30233N1 Transfusion of Nonautologous Red Blood Cells into Peripheral Vein, Percutaneous Approach (ICD-10-PCS; 2018-03-08)
PROC: 0BP1XDZ Removal of Intraluminal Device from Trachea, External Approach (ICD-10-PCS; 2018-03-12)
DX: A41.9 Sepsis, unspecified organism (principal); G93.41 Metabolic encephalopathy; J96.01 Acute respiratory failure with hypoxia; R65.21 Severe sepsis with septic shock; K25.4 Chronic or unspecified gastric ulcer with hemorrhage; N17.9 Acute kidney failure, unspecified; N39.0 Urinary tract infection, site not specified; E87.1 Hypo-osmolality and hyponatremia; D62 Acute posthemorrhagic anemia; K29.50 Unspecified chronic gastritis without bleeding; I45.9 Conduction disorder, unspecified; E87.6 Hypokalemia; Z66 Do not resuscitate; Z51.5 Encounter for palliative care; R57.0 Cardiogenic shock; R33.9 Retention of urine, unspecified; E11.65 Type 2 diabetes mellitus with hyperglycemia; E86.0 Dehydration; L89.152 Pressure ulcer of sacral region, stage 2; L89.620 Pressure ulcer of left heel, unstageable; L89.610 Pressure ulcer of right heel, unstageable; L89.890 Pressure ulcer of other site, unstageable; K21.9 Gastro-esophageal reflux disease without esophagitis; R00.1 Bradycardia, unspecified; I48.0 Paroxysmal atrial fibrillation; I10 Essential (primary) hypertension; E03.9 Hypothyroidism, unspecified; M21.379 Foot drop, unspecified foot; F03.90 Unspecified dementia, unspecified severity, without behavioral disturbance, psychotic disturbance, mood disturbance, and anxiety; Z96.651 Presence of right artificial knee joint; R62.7 Adult failure to thrive; E78.5 Hyperlipidemia, unspecified; Z74.01 Bed confinement status; Z90.710 Acquired absence of both cervix and uterus; Z79.899 Other long term (current) drug therapy; Z79.4 Long term (current) use of insulin; Z79.82 Long term (current) use of aspirin; Z88.8 Allergy status to other drugs, medicaments and biological substances; Z86.19 Personal history of other infectious and parasitic diseases
CPT/HCPCS: 33210; 36415; 36416; 36430; 51702; 71045; 74176; 74177; 76942; 80048; 80053; 81003; 81015; 82274; 82553; 82805; 83605; 83690; 83735; 84100; 84484; 85025; 86850; 86900; 86901; 87086; 88305; 88312; 93005; 93010; 93306; 93923; 94002; 94003; 96361; 96365; 96368; 96375; 99152; A4216; C1769; J0171; J0461; J1265; J1644; J1940; J2001; J2060; J2248; J2270; J2543; J2704; J2920; J3010; J7050; J7070; P9016; Q0162; S0028